=== PATIENT | female | born 1990 | race Caucasian/White ===

== ENCOUNTER → 2018-09-04 12:18 | Outpatient (CLI) | payer BC, SELFPAY ==
--- NOTE | 2018-09-04 12:39 | XR_ITS ---
XR foot RT min 3V, XR foot LT min 3V Ordering Physician: Hazel Dean Patient Age: 28 years: Female HISTORY: ITS.REASON: RT FOOT PAIN Heel pain. Several months. No known injury. TECHNIQUE: Nonweightbearing study: Right foot 3 view Left foot 3 view COMPARISON :None RIGHT FOOT 3 VIEW The right but appears intact. Bones well mineralized. Joint spaces well-maintained. Normal relationships. No erosions. No periosteal reaction or stress fracture evident. The calcaneus appears intact. Heel pad, well-maintained measuring 19 mm. No plantar calcaneal spur LEFT FOOT 3 VIEW The left but appears intact with no significant findings. Bones well mineralized normal relationships. Joint spaces well-maintained. No erosions. No lesions evident. Adequate plantar arch bilaterally. The calcaneus appears intact. Heel pad appears well-maintained measuring 19 mm. Bilateral No evidence calcaneal spur -----IMPRESSION: . Right and left foot appear intact bilaterally. Symmetric & Within normal limits. Calcaneus intact bilaterally. No plantar calcaneal spur.
== END ==
PROVIDERS: PCP Family Medicine; Visit Provider Nurse Practitioner
DX: M79.671 Pain in right foot (principal); M79.672 Pain in left foot
CPT/HCPCS: 73630

== ENCOUNTER → 2019-02-13 10:49 | Outpatient (CLI) | payer BC, SELFPAY ==
--- NOTE | 2019-02-13 10:55 | XR_ITS ---
PROCEDURE: XR FOOT WT BEARING LT 3V CLINICAL INDICATION: pain COMPARISON: No exams were available for comparison FINDINGS: No fracture or dislocation. No lytic or blastic change. There is normal mineralization. The joint spaces are well-preserved. No significant degenerative/arthritic changes. No erosive changes evident. Other findings:Mild pes planus IMPRESSION: Mild pes planus otherwise negative Dictated by: Vikas Cook MD 02/13/2019 11:10 Signed by: <Electronically signed by Vikas Cook MD in [place]> 02/13/2019 11:10
--- NOTE | 2019-02-13 10:55 | XR_ITS ---
PROCEDURE: XR ANKLE WT BEARING LT MIN 3V CLINICAL INDICATION: pain COMPARISON: No exams were available for comparison FINDINGS: No fracture, dislocation, lytic change, or blastic change evident. No significant degenerative change IMPRESSION: Negative left ankle Dictated by: Vikas Cook MD 02/13/2019 11:10 Signed by: <Electronically signed by Vikas Cook MD in [place]> 02/13/2019 11:10
== END ==
PROVIDERS: PCP Family Medicine; Visit Provider Podiatrist
DX: M72.2 Plantar fascial fibromatosis (principal)
CPT/HCPCS: 73610; 73630

== ENCOUNTER → 2019-02-20 09:30 | Outpatient (CLI) | payer BC, SELFPAY ==
--- NOTE | 2019-02-20 09:34 | MR_ITS ---
PROCEDURE: MR FOOT LT WO/W CON CLINICAL INDICATION: pain, plantar fasciitis, evaluate for plantar fascia tear, insertional Achilles tendinitis, Achilles tear Pain when walking. Pain along the medial side of the foot and plantar surface COMPARISON: XR FOOT WT BEARING LT 3V from 02/13/2019 TECHNIQUE: Routine multiplanar multi echo sequences are performed without and with gadolinium enhancement. FINDINGS: There is a mild amount of bone marrow edema within the inferior aspect of the calcaneus just proximal to and at the region of the plantar fascia insertion and also lateral to the plantar fascia. This area also shows some mild enhancement. There is also mild edema of the heel pad superficial to the medial aspect of the calcaneus. There is mild thickening of the plantar fascia medially and posteriorly. No definite disruption however is evident of the plantar fascia. Edema with fluid signal intensity is present deep to the plantar fascia. The Achilles tendon has an unremarkable appearance. There is a small ankle joint effusion posterior to the posterior subtalar joint. There is focal increased T2 signal involving the posterior aspect of the flexor digitorum brevis at the insertion on the calcaneus suggesting at least partial tear of this muscle. There is mild enhancement the plantar fascia with the calcaneus and there is also mild enhancement of the heel pad . No ligament tear is apparent. The tendons about the ankle and foot have an unremarkable appearance IMPRESSION: 1. Plantar fasciitis manifested by edema within the calcaneus, mild thickening of the plantar fascia, edema of the heel pad superficial to the plantar fascia, and edema deep to the plantar fascia at its insertion on the calcaneus a definite fascial tear is not identified. A partial tear however cannot be excluded 2. Moderate amount of increased T2 signal with irregularity involving the posterior aspect of the flexor digitorum brevis raising suspicion of partial tear of that muscle Dictated by: Vikas Cook MD 02/26/2019 12:52 Electronically signed by Vikas Cook MD in [place] 02/26/2019 12:52
== END ==
PROVIDERS: PCP Family Medicine; Visit Provider Podiatrist
DX: M72.2 Plantar fascial fibromatosis (principal)
CPT/HCPCS: 73720; A9576

== ENCOUNTER 2019-04-23 16:30 | Outpatient (RCR) | payer BC, SELFPAY ==
--- NOTE | 2019-04-10 16:14 | HMH.PTOPEV ---
PT Outpatient Evaluation Rehab PT Outpatient Evaluation Start: 04/10/19 15:45 Freq: Status: Active Protocol: Document 04/10/19 15:48 SOFIYA (Rec: 04/10/19 16:14 KATHYMARY ANN [id number]) Electronically Signed By Vega Hernandez PT 04/10/19 15:48 Outpatient Therapy Subjective History Subjective History This is the initial physical therapy evaluation for Bernadette Soto. Pt is a 28 y/o female referred to PT for c/o B foot pain L>R. Pt reports pain in L foot began insidiously in Jul and R foot began in August. Pt reports she has been in a boot, cast and had steroid injxn w/out relief. Pt reports pain is in bottom of feet and medial side of heel on L. Chief Complaint Pain,Stiff,Swelling Symptom Type Ache,Throb,Sharp,Dull,Stabbing ,Burning,Shooting Symptoms Relieved By Rest/Positioning,Ice Symptoms Aggravated By Standing,Physical Activity, Walking Prior Functional Limitations None Current Functional Limitations Housework,Sleeping,Standing, Recreation Activity,Walking, Stairs Symptom Description Constant but Variable Level of pain today (0-10) 6 Pain scale - at its best (0-10) 4 Pain scale - at its worst (0-10) 8 Ankle/Foot Eval Gait Observation General Gait Pattern Observation Antalgic Gait Assistive Device Ambulation Assistive Device None Palpation Tenderness bilateral Ankle/Foot Palpation Findings Tenderness Ankle/Foot Palpation Overall Comment TTP at PF calcaneal insertion B ROM left Ankle/Foot Dorsiflexion w/Knee Extended 0 Active Range Motion (degrees) Ankle/Foot Plantar Flexion Active Range 45 of Motion (degrees) Ankle/Foot Eversion Active Range of 15 Motion (degrees) Ankle/Foot Inversion Active Range of 40 Motion (degrees) Ankle/Foot ROM Limitations Soft Tissue Tightness,Pain right Ankle/Foot Dorsiflexion w/Knee Extended 10 Active Range Motion (degrees) Ankle/Foot Plantar Flexion Active Range 55 of Motion (degrees) Ankle/Foot Eversion Active Range of 25 Motion (degrees) Ankle/Foot Inversion Active Range of 40 Motion (degrees) MMT bilateral Ankle Dorsiflexion Strength Grade 4 Good Ankle Plantarflexion Strength Grade 5 Normal Foot Eversion Strength Grade 4- Good- F
== END 2019-04-23 16:35 | disposition home or self-care (01) ==
LOC: PT 16:30
PROVIDERS: Visit Provider Podiatrist
DX: M79.672 Pain in left foot (principal); M72.2 Plantar fascial fibromatosis; S66.819A Strain of other specified muscles, fascia and tendons at wrist and hand level, unspecified hand, initial encounter; M76.62 Achilles tendinitis, left leg; M76.61 Achilles tendinitis, right leg
CPT/HCPCS: 97010; 97110; 97140; 97163

== ENCOUNTER → 2020-02-15 10:22 | Outpatient (CLI) | payer BC, SELFPAY ==
[2020-02-16 09:27] LABS: Prolactin 11.5 ng/mL (4.8-23.3)
[2020-02-16 09:45] LABS: Estradiol 43.7 pg/mL (.); LH 6.5 mIU/mL (.)
== END ==
PROVIDERS: Visit Provider Nurse Practitioner Obstetrics & Gynecology
DX: Z01.419 Encounter for gynecological examination (general) (routine) without abnormal findings (principal)
CPT/HCPCS: 36415; 82670; 83001; 83002; 84146

== ENCOUNTER 2020-05-15 13:47 | Emergency (ER) | payer BC, SELFPAY ==
[2020-05-15 13:49] VITALS: BP 145/84; PULSE 80; RESP 16; TEMP 36.8; O2SAT 98; BMI 35.4
--- NOTE | 2020-05-15 14:06 | HMH.EDGENADL ---
ED Disposition Clinical Impression: Burn, foot, second degree Qualifiers: Encounter type: initial encounter Laterality: left Qualified Code(s): T25.222A - Burn of second degree of left foot, initial encounter Disposition: Home, Self-Care Condition on Discharge: Good Instructions: DI for Haney Additional Instructions: Additional instructions for HANEY: Clean your burn with a warm, wet, soapy washcloth each day by stroking over the burn one time. This will remove any loose blisters. Any blisters that remain will come off on subsequent days. Apply antibiotic ointment and bandage. Continue this treatment daily until the burn heals, usually 1-2 weeks. Return if high fever greater than 101 degrees, pus drainage, red streaks. Tylenol or ibuprofen for pain. Referrals: John Moreno MD [Primary Care Provider] - - Critical Care Critical Care Time: No Attestation: On 05/15/20, the high probability of a clinically significant, sudden or life threatening deterioration of the following system(s) required my full and direct attention, intervention and personal management. The time I documented below is in addition to time spent performing reported procedures but includes the following listed in this critical care notation. Medical Decision Making - Bart Inquiry Pt receiving controlled substance: No Vital Signs: 05/15/20 13:49 Temperature 98.3 F Temperature Source Oral Pulse Rate [Right Radial] 80 Respiratory Rate 16 Blood Pressure [Right Arm] 145/84 H Blood Pressure Mean [Right Arm] 104 Blood Pressure Source [Right Arm] Automatic Cuff Blood Pressure Position [Right Arm] Sitting 02 Sat by Pulse Oximetry 98 Oxygen Delivery Method Room Air Orders (Tests/Meds): ED MEDICATIONS Generic Name Dose Route Start Last Admin Trade Name Freq PRN Reason Stop Dose Admin Neomycin/Polymyxin/Bacitracin 1 each 05/15/20 14:14 Neosporin Ointment 0.9gm Udp TP 05/15/20 14:15 ONCE ONE Discontinued Medications Generic Name Dose Route Start Last Admin Trade Name Freq PRN Reason Stop Dose Admin Tetanus/Reduced Diphtheria/Acell Pertussis 0.5 ml 05/15/20 14:13 Tet/Diphth/Pert-Adult 0.5ml Syringe IM 05/15/20 14:14 .ONCE ONE General Adult HPI - General Chief complaint: Skin/Abscess/Foreign Body Stated complaint: lt foot burn ao 05/15/20 Time Seen by Provider: 05/15/20 14:06 Mode of Arrival: Ambulatory Limitations: No Limitations Description of Symptoms (Recalled from ER Triage Doc. by RN): Red blistered area to top of L foot. 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 - History of Present Illness HPI narrative: Burned with hot grease on top of left foot 20 minutes prior to arrival. Last tetanus immunization is unknown. She had a sock on and when she took the sock off after the injury it peeled off some of a blister. No haney on the plantar aspect of the foot. - Related Data Previous Rx's Medication Instructions Recorded clomiphene citrate 50 mg tablet 50 mg PO DAILY 5 Days #5 tab 02/15/20 Allergies Allergy/AdvReac Type Severity Reaction Status Date / Time amoxicillin [From AUGMENTIN] Allergy Unknown Verified 02/15/20 09:32 clavulanic acid Allergy Unknown Verified 02/15/20 09:32 [From AUGMENTIN] [facility] History - Hepatitis A Screen Drug use history?: No High risk sexual behaviors?: No History of sexually transmitted infection?: No Currently employed?: No Childcare worker?: No Do you have indoor plumbing?: Yes Do you have electricity?: Yes Attestation statement:: This patient has been screened for Hepatitis A risk factors. I have reviewed the patient's past medical history: Yes Medical History: Reports:: Asthma Denies:: Diabetes Mellitus Type 1, Diabetes Mellitus Type 2 Other Surgeries: Yes: No Previous Surgery Amputation: No Fractures: No Comment: surgery for right arm nerve damage - lifting injury at work. had an aborti
[2020-05-15 14:39] VITALS: BP 133/83; PULSE 81; RESP 18; TEMP 36.8; O2SAT 98
== END 2020-05-15 14:40 | disposition home or self-care (01) ==
PROVIDERS: Emergency Provider Emergency Medicine; PCP Family Medicine
DX: T25.222A Burn of second degree of left foot, initial encounter (principal); X12.XXXA Contact with other hot fluids, initial encounter; Y92.010 Kitchen of single-family (private) house as the place of occurrence of the external cause; Z23 Encounter for immunization; Z88.1 Allergy status to other antibiotic agents
CPT/HCPCS: 90471; 90715; 99281

== ENCOUNTER → 2020-10-28 19:08 | Outpatient (CLI) | payer BC, SELFPAY | PROVIDERS: Visit Provider Nurse Practitioner Family | DX: Z20.822 Contact with and (suspected) exposure to COVID-19 (principal) | CPT/HCPCS: U0003 ==

== ENCOUNTER → 2021-04-17 13:03 | Outpatient (CLI) | payer BC, SELFPAY ==
--- NOTE | 2021-04-17 13:07 | CA_ITS ---
APPROVED REPORT Left Lower Extremity Venous Study for DVT. Dehydrator Tender: Terrie Fink RVT Indications Lower Extremity Pain: Left Lower Extremity Edema: Left PAIN/SWELLING LLE X SEVERAL DAYS,NKI Vein Imaging CFV (L): compressive, spontaneous, phasic, augmentation FEM (L): compressive, spontaneous, phasic, augmentation POP (L): compressive, spontaneous, phasic, augmentation PTV (L): Compressible GSV (L): Compressible Peroneals (L):Compressible GAS (L): Compressible Findings Study suggests no evidence of DVT or SVT of the left lower extremity. Conclusion Study suggests no evidence of DVT or SVT of the left lower extremity. Electronically signed by : Suri Jackson MD 04/17/2021 16:37:31
== END ==
LOC: RT 13:04
PROVIDERS: PCP Family Medicine; Visit Provider Nurse Practitioner Family
DX: M79.605 Pain in left leg (principal); M79.89 Other specified soft tissue disorders
CPT/HCPCS: 93971

== ENCOUNTER 2021-05-23 11:22 | Emergency (ER) | payer OTHER, BC, SELFPAY ==
[2021-05-23 11:33] VITALS: BP 128/89; PULSE 96; RESP 18; TEMP 36.8; O2SAT 97; BMI 35.6
--- NOTE | 2021-05-23 11:35 | XR_ITS ---
PROCEDURE INFORMATION: Exam: XR Left Foot Exam date and time: 05/23/2021 11:35 AM Age: 30 years old Clinical indication: Injury or trauma; Fall; Sprain or strain; Ankle and foot; Patient HX: Rolled left ankle; Additional info: Pain TECHNIQUE: Imaging protocol: XR Left foot. Views: 3 or more views. COMPARISON: MR FOOT LT WO/W CON 02/20/2019 9:50 AM FINDINGS: Bones/joints: No acute fracture or malalignment. Joint spaces are maintained. Soft tissues: Normal. IMPRESSION: No acute fracture or malalignment.
--- NOTE | 2021-05-23 11:35 | XR_ITS ---
PROCEDURE INFORMATION: Exam: XR Left Ankle Exam date and time: 05/23/2021 11:35 AM Age: 30 years old Clinical indication: Injury or trauma; Fall; Sprain or strain; Ankle and foot; Patient HX: Rolled left ankle; Additional info: Pain TECHNIQUE: Imaging protocol: XR Left ankle. Views: 3 or more views. COMPARISON: CR XR ANKLE WT BEARING LT MIN 3V 02/13/2019 10:56 AM FINDINGS: Bones/joints: No acute fracture or malalignment. Joint spaces are maintained. Soft tissues: Normal. IMPRESSION: No acute fracture or malalignment.
--- NOTE | 2021-05-23 12:27 | HMH.EDGENADL ---
ED Disposition Clinical Impression: Left ankle sprain Qualifiers: Encounter type: initial encounter Involved ligament of ankle: unspecified ligament Qualified Code(s): S93.402A - Sprain of unspecified ligament of left ankle, initial encounter Disposition: Home, Self-Care Condition on Discharge: Good Instructions: DI for Ankle Sprain Prescriptions: Ibuprofen [Ibuprofen 800mg Tablet] 800 mg PO TIDP PRN #20 tab PRN Reason: Moderate Pain Transmission Status: Pending to [id number] Referrals: Jai Hastings MD [Primary Care Provider] - - Critical Care Critical Care Time: No Attestation: On 05/23/21, the high probability of a clinically significant, sudden or life threatening deterioration of the following system(s) required my full and direct attention, intervention and personal management. The time I documented below is in addition to time spent performing reported procedures but includes the following listed in this critical care notation. Medical Decision Making - Medical Records Medical records reviewed: Yes: I reviewed the patient's medical records. - Bart Inquiry Pt receiving controlled substance: No Vital Signs: 05/23/21 11:33 Temperature 98.2 F Temperature Source Oral Pulse Rate [Left Radial] 96 H Respiratory Rate 18 Blood Pressure [Right Arm] 128/89 Blood Pressure Mean [Right Arm] 102 02 Sat by Pulse Oximetry 97 Oxygen Delivery Method Room Air Orders (Tests/Meds): ED MEDICATIONS Discontinued Medications Generic Name Dose Route Start Last Admin Trade Name Freq PRN Reason Stop Dose Admin Hydrocodone Bitart/Acetaminophen 1 tab 05/23/21 11:35 05/23/21 11:39 Hydrocodone/Apap 5/325 Mg Tablet PO 05/23/21 11:36 1 tab ONCE ONE Administration ORDERS Category Date Time Status UDS [Drug Screen,Urine] Stat Lab 05/23/21 11:53 Ordered - Radiology Data #1 Image(s): Ankle, Foot/Toes Image Reviewed: Yes I reviewed the patient's radiology results, Yes I reviewed the patient's radiology image, Yes I have reviewed radiologist's interpretation Preliminary Findings: Normal/NAD, No Fracture Seen - Reevaluation(s) Time: 12:29 Reevaluation #1: On reevaluation, the patient is feeling better. There is no evidence of fracture on imaging studies. Patient will follow up with PCP in 48 hours. Given strict return precautions. Verbalized understanding. Medical Decision Narrative: 30-year-old female presenting with left ankle and left foot pain. Patient had accidental fall. Concern for possible fracture. Imaging obtained. General Adult HPI - General Chief complaint: PAIN Stated complaint: WC 05/23 fall, lt foot pain Time Seen by Provider: 05/23/21 11:35 Mode of Arrival: Wheelchair Limitations: No Limitations Description of Symptoms (Recalled from ER Triage Doc. by RN): pt to ed c/o left ankle pain. pt states she stepped off a step and rolled her ankle. pt states this is a workmans comp case. - History of Present Illness HPI narrative: Is a 30-year-old female presented to the emergency department with some left foot and ankle pain. The patient states that she stepped off of some steps and accidentally rolled her ankle. She did not fall down. Patient is complaining of some left foot and left lateral ankle pain. She is having difficulties bearing weight secondary to the pain. Patient did not sustain any other trauma. Denies any headache or change in vision. No focal weakness. No chest pain shortness breath abdominal pain or vomiting. - Related Data Previous Rx's Medication Instructions Recorded Ibuprofen [Ibuprofen 800mg 800 mg PO TIDP PRN #20 tab 05/23/21 Tablet] Allergies Allergy/AdvReac Type Severity Reaction Status Date / Time amoxicillin [From AUGMENTIN] Allergy Unknown Verified 10/28/20 17:14 clavulanic acid Allergy Unknown Verified 10/28/20 17:14 [From AUGMENTIN] [facility] History - Hepatitis A Screen Drug use h
[2021-05-23 13:22] VITALS: BP 131/80; PULSE 91; RESP 18; TEMP 36.8; O2SAT 98
== END 2021-05-23 12:45 | disposition home or self-care (01) ==
PROVIDERS: Emergency Provider Emergency Medicine; PCP Family Medicine
DX: S93.402A Sprain of unspecified ligament of left ankle, initial encounter (principal); X50.1XXA Overexertion from prolonged static or awkward postures, initial encounter; Y92.69 Other specified industrial and construction area as the place of occurrence of the external cause; Y99.0 Civilian activity done for income or pay
CPT/HCPCS: 73610; 73630; 99282

== ENCOUNTER → 2021-06-17 07:17 | Outpatient (CLI) | payer OTHER, SELFPAY ==
--- NOTE | 2021-06-17 07:19 | MR_ITS ---
PROCEDURE INFORMATION: Exam: MR Left Lower Extremity Joint Without Contrast; Ankle Exam date and time: 06/17/2021 7:19 AM Age: 30 years old Clinical indication: Left; Patient HX: PT fell down steps at work on 05-23-21 and rolled ankle. Lateral ankle pain and swelling. ; Additional info: Sprain of left ankle TECHNIQUE: Imaging protocol: MR of the Left lower extremity without contrast. Exam focused on the ankle. COMPARISON: CR XR ANKLE LT MIN 3V 05/23/2021 11:34 AM FINDINGS: Bones and cartilage: There is no acute fracture or dislocation. No aggressive bone lesions are present. There are small dorsal and plantar calcaneal enthesophytes. Joint spaces: A moderate amount of fluid decompresses posteriorly from the subtalar joint. LIGAMENTS: Distal tibiofibular syndesmosis: Unremarkable. No tear. Anterior talofibular ligament: Minimal increased T2 signal suggests sprain of the anterior talofibular ligament. Posterior talofibular ligament: Unremarkable. No tear. Calcaneofibular ligament: Unremarkable. No tear. Deltoid ligament complex: The superficial and deep portions of the deltoid ligament are intact, with a normal striated appearance of the deep deltoid ligament. TENDONS: Flexor tendons of foot: Unremarkable as visualized. Tibialis posterior tendon: Mild tenosynovitis involves the tibialis posterior tendon. Peroneal tendons: Mild tenosynovitis involves the peroneal tendon sheath. Extensor tendons of foot: Unremarkable as visualized. Tibialis anterior tendon: Unremarkable. Achilles tendon: There is no tear or significant tendinosis involving the Achilles tendon. Tarsal canal (Sinus tarsi): The sinus tarsi has normal fat signal. Tarsal tunnel: Unremarkable. Muscles: Unremarkable. Soft tissues: There is a moderate amount of edema in the subcutaneous fat. A trace amount of fluid is present in the retrocalcaneal bursa. Plantar fascia: The proximal plantar fascia is mildly thickened and has mildly increased T2 signal consistent with mild plantar fasciitis (fasciopathy). IMPRESSION: 1. Low-grade sprain of the anterior talofibular ligament. 2. Mild tenosynovitis of the tibialis posterior and peroneal tendons. 3. Mild plantar fasciitis (fasciopathy). 4. No fracture.
== END ==
PROVIDERS: PCP Nurse Practitioner Family; Visit Provider Nurse Practitioner Family
DX: S93.402D Sprain of unspecified ligament of left ankle, subsequent encounter (principal); M25.572 Pain in left ankle and joints of left foot; M25.472 Effusion, left ankle
CPT/HCPCS: 73721

== ENCOUNTER 2021-07-17 09:39 | Emergency (ER) | payer BC, SELFPAY ==
[2021-07-17 09:48] VITALS: BP 140/87; PULSE 103; RESP 16; TEMP 36.9; O2SAT 97; BMI 35.6
--- NOTE | 2021-07-17 09:55 | XR_ITS ---
FINAL REPORT TECHNIQUE: Chest PA & Lateral CLINICAL HISTORY: cough, congestion FINDINGS: 2 views of the chest were performed. The heart size is normal. The mediastinum is within normal limits. There is no acute cardiopulmonary process. There are no pleural effusions. There is no pneumothorax. The bony thorax appears intact. IMPRESSION: No acute cardiopulmonary process. Reviewed, Interpreted and Dictated by Heri Romero MD Transcribed by Jose Ramon Prajapati Authenticated by Heri Romero MD on 07/17/2021 11:14:06 AM [facility]
--- NOTE | 2021-07-17 10:26 | HMH.EDUTC ---
[facility] [place] Disposition Clinical Impression: COVID-19, Bronchitis Disposition: Home, Self-Care Condition on Discharge: Good Instructions: DI for Acute Bronchitis, DI for Pleurisy, DI for COVID-19 (Suspected or Confirmed ), Preventing the Spread of Coronavirus Discharge Instructions Additional Instructions: Drink plenty of fluids. Take tylenol or ibuprofen for pain or fever. Take the medications as directed. Follow up with your regular doctor. GO TO THE ER FOR ANY WORSENING SYMPTOMS Prescriptions: Brompheniramine/Pseudoephed/Dm [Bromfed Dm Cough Syrup] 5 ml PO Q6HP PRN #240 ml PRN Reason: Cough Transmission Status: [facility] by [id number] methylPREDNISolone [Medrol] 4 mg PO DIRECTED 6 Days #21 packet Transmission Status: Re[facility] by [facility] guaiFENesin [Mucinex 600mg tablet] 1 - 2 tab PO BIDP PRN #30 tab PRN Reason: Congestion Transmission Status: Re[facility] by [facility] Azithromycin [Z-Felipe 250mg Tab*] 250 mg PO UD DOSE PK #6 tab Transmission Status: Received by [facility] Referrals: Jai Hastings MD [Primary Care Provider] - Forms: Work/School Release Time of Disposition: 10:33 Medical Decision Making - Medical Records Medical records reviewed: No: I reviewed the patient's medical records. - Bart Inquiry Pt receiving controlled substance: No Vital Signs: 07/17/21 09:48 07/17/21 10:55 Temperature 98.5 F 98.5 F Temperature Source Oral Pulse Rate 103 H Pulse Rate [Left] 103 H Respiratory Rate 16 16 Blood Pressure 140/87 Blood Pressure [Right Arm] 140/87 Blood Pressure Mean [Right Arm] 104 02 Sat by Pulse Oximetry 97 - Lab Data Lab results reviewed: Yes: I reviewed the patient's lab results. - Radiology Data #1 Image(s): Chest Image Reviewed: Yes I reviewed the patient's radiology image, Yes I have reviewed radiologist's interpretation Preliminary Findings: No Infiltrates Seen [facility] [place] HPI - General Stated complaint: sore throat,cough,headache Time Seen by Provider: 07/17/21 09:50 Mode of Arrival: Ambulatory Source of Information: Patient Limitations: No Limitations Description of Symptoms (Recalled from Triage Doc. by RN): pt came out of [facility] on 07/14. pt states she is still having symptoms. pt c/o a sore throat, LI, nasal drainage, upper back pain and nausea. HEENT Symptoms (Recalled from RN notes): Yes (sore throat, LI and nasal drainage) Resp Symptoms (Recalled from RN notes): No Skin Symptoms (Recalled from RN notes): No MS Symptoms (Recalled from RN notes): Yes (upper back pain) Functional Status (Recalled from RN notes): wnl - History of Present Illness Provider Complaint: She has had covid-19. Her quarantine period ended on 07/14. She states that she never really got that sick while she was on her quarantine. She mostly had body aches, fatigue, and a head ache during that time. But, over the past 2 days she has been having worsening chest congestion, shortness of breath on exertion, pleuritic type chest and back pain, and a productive cough with yellowish sputum. She states she feels worse instead of better. - Related Data Previous Rx's Medication Instructions Recorded Ibuprofen [Ibuprofen 800mg 800 mg PO TIDP PRN #20 tab 05/23/21 Tablet] Azithromycin [Z-Felipe 250mg Tab*] 250 mg PO UD DOSE PK #6 tab 07/17/21 Brompheniramine/Pseudoephed/Dm 5 ml PO Q6HP PRN #240 ml 07/17/21 [Bromfed Dm Cough Syrup] guaiFENesin [Mucinex 600mg tablet] 1 - 2 tab PO BIDP PRN #30 tab 07/17/21 methylPREDNISolone [Medrol] 4 mg PO DIRECTED 6 Days #21 07/17/21 packet Allergies Allergy/AdvReac Type Severity Reaction Status Date / Time amoxicillin [From AUGMENTIN] Allergy Unknown Verified 10/28/20 17:14 clavulanic acid Allergy Unknown Verified 10/28/20 17:14 [From AUGMENTIN] - Worker's Comp Is this a Worker's Comp case?: No H History - Hepatitis A Screen Drug use history?: No High risk
[2021-07-17 10:55] VITALS: BP 140/87; PULSE 103; RESP 16; TEMP 36.9
== END 2021-07-17 10:56 | disposition home or self-care (01) ==
PROVIDERS: Emergency Provider Nurse Practitioner Family; PCP Family Medicine
DX: U07.1 COVID-19 (principal); J20.9 Acute bronchitis, unspecified; J45.909 Unspecified asthma, uncomplicated
CPT/HCPCS: 71046; 99202; G0463

== ENCOUNTER → 2021-08-27 09:54 | Outpatient (CLI) | payer BC, SELFPAY ==
[2021-08-27 11:26] LABS: HCG,Quantitative 51 mIU/ml (0-5.42)
== END ==
PROVIDERS: Visit Provider Nurse Practitioner Obstetrics & Gynecology
DX: N92.6 Irregular menstruation, unspecified (principal)
CPT/HCPCS: 36415; 84702

== ENCOUNTER → 2021-08-29 08:24 | Outpatient (CLI) | payer BC, SELFPAY ==
[2021-08-29 09:44] LABS: HCG,Quantitative 142 mIU/ml (0-5.42)
== END ==
LOC: LAB 08:25
PROVIDERS: Visit Provider Nurse Practitioner Obstetrics & Gynecology
DX: Z32.00 Encounter for pregnancy test, result unknown (principal)
CPT/HCPCS: 84702

== ENCOUNTER → 2021-09-01 11:17 | Outpatient (CLI) | payer BC, SELFPAY ==
[2021-09-01 14:36] LABS: HCG,Quantitative 406 mIU/ml (0-5.42)
== END ==
PROVIDERS: Visit Provider Nurse Practitioner Obstetrics & Gynecology
DX: Z34.90 Encounter for supervision of normal pregnancy, unspecified, unspecified trimester (principal)
CPT/HCPCS: 36415; 84702

== ENCOUNTER 2021-09-13 18:41 | Emergency (ER) | payer BC, SELFPAY ==
[2021-09-13 18:43] VITALS: BP 134/79; PULSE 85; RESP 18; TEMP 36.9; O2SAT 100; BMI 34.8
[2021-09-13 19:30] VITALS: BP 134/79; PULSE 86; O2SAT 100
[2021-09-13 19:53] LABS: Microscopic, Urine URINE MICROSCOPIC (MICROSCOPIC)
[2021-09-13 19:56] LABS: Appearance,Urine CLEAR (Clear); Bilirubin,Urine Negative (Negative); Blood, Urine Negative (Negative); Color,Urine YELLOW (Yellow); Glucose,Urine (UA) Negative (Negative); Ketones,Urine Negative (Negative); Leukocyte Esterase,Urine Negative (Negative); Nitrate,Urine Negative (Negative); PH,Urine 5.5 (5.0-8.5); Protein,Urine Negative (Negative); Specific Gravity, Urine >= 1.030 (1.005-1.030); Urobilinogen,Urine 0.2 EU/dl (0.2)
[2021-09-13 20:00] VITALS: BP 117/78; PULSE 80; O2SAT 98
--- NOTE | 2021-09-13 20:05 | PC.NURSE ---
ER at bedside
--- NOTE | 2021-09-13 20:07 | HMH.EDURI ---
ED Disposition Clinical Impression: Qualifiers: Weeks of gestation: less than 8 weeks Qualified Code(s): Z3A.01 - Less than 8 weeks gestation of Upper respiratory infection Qualifiers: URI type: unspecified URI Qualified Code(s): J06.9 - Acute upper respiratory infection, unspecified Disposition: Home, Self-Care Condition on Discharge: Good Instructions: DI for -- Discomforts and Remedies Additional Instructions: call pcp and ob for follow up Referrals: Denisa Schmitz APRN [Primary Care Provider] - Alverto Mast MD [Staff Physician] - - Critical Care Critical Care Time: No Attestation: On 09/13/21, the high probability of a clinically significant, sudden or life threatening deterioration of the following system(s) required my full and direct attention, intervention and personal management. The time I documented below is in addition to time spent performing reported procedures but includes the following listed in this critical care notation. Medical Decision Making - Medical Records Medical records reviewed: Yes: I reviewed the patient's medical records. - Bart Inquiry Pt receiving controlled substance: No Vital Signs: 09/13/21 18:43 09/13/21 19:30 09/13/21 20:00 Temperature 98.4 F Temperature Source Oral Pulse Rate 86 80 Pulse Rate [Left Radial] 85 Respiratory Rate 18 Blood Pressure 134/79 117/78 Blood Pressure [Right Arm] 134/79 Blood Pressure Mean [Right Arm] 97 02 Sat by Pulse Oximetry 100 100 98 Oxygen Delivery Method Room Air Room Air Room Air 09/13/21 20:30 Temperature Temperature Source Pulse Rate 86 Pulse Rate [Left Radial] Respiratory Rate Blood Pressure 121/72 Blood Pressure [Right Arm] Blood Pressure Mean [Right Arm] 02 Sat by Pulse Oximetry 100 Oxygen Delivery Method Room Air - Lab Data Lab results reviewed: Yes: I reviewed the patient's lab results. Lab Results 09/13/21 19:18: Urine Color Yellow, Urine Appearance Clear, Urine pH 5.5, Ur Specific Emerson >= 1.030, Urine Protein Negative, Urine Glucose (UA) Negative, Urine Ketones Negative, Urine Blood Negative, Urine Nitrate Negative, Urine Bilirubin Negative, Urine Urobilinogen 0.2, Ur Leukocyte Esterase Negative, Urine WBC 3-5, Ur Squamous Epith Cells 10-20, Amorphous Sediment Trace, Urine Mucus 1+ 09/13/21 19:51: SARS-CoV-2 (PCR) Not detected, Influenza A Untype (PCR) Not detected, Influenza Type B (PCR) Not detected 09/13/21 19:54: HCG, Quant [id number] H 09/13/21 19:54: WBC 7.7, RBC 4.15 L, Hgb 13.2, Hct 39.0, MCV 94.0, MCH 31.7 H, MCHC 33.8, RDW 13.6, Plt Count 183, MPV 9.6, Neut % (Auto) 69.4, Lymph % (Auto) 22.8, Sterling % (Auto) 3.7, Eos % (Auto) 1.4, Baso % (Auto) 2.7 H, Neut # (Auto) 5.3, Lymph # (Auto) 1.8, Sterling # (Auto) 0.3, Eos # (Auto) 0.1, Baso # (Auto) 0.2 09/13/21 19:54: Sodium 136, Potassium 4.3, Chloride 104, Carbon Dioxide 25, Anion Gap 11.3, BUN 8, Creatinine 0.70, Estimated Creat Clear 204, Estimated GFR 98, Est GFR ( Amer) 119, Glucose 91, Calcium 9.0, Total Bilirubin 0.8, AST 45 H, ALT 28, Alkaline Phosphatase 24 L, Total Protein 7.0, Albumin 4.5, Globulin 2.5, Albumin/Globulin Ratio 1.8 Result diagrams: 09/13/21 19:54 09/13/21 19:54 Orders (Tests/Meds): ED MEDICATIONS Generic Name Dose Route Start Last Admin Trade Name Cliffq PRN Reason Stop Dose Admin Sodium Chloride 1,000 mls @ 999 mls/hr 09/13/21 20:00 09/13/21 20:09 Sod Chlor 0.9% 1000ml Bag IV 09/13/21 21:00 999 mls/hr .[id number] MICHEAL Administration ORDERS Category Date Time Status US OB transvaginal Stat Ultrasound 09/13/21 20:52 Taken - US Data US Images: Pelvis ED US Reviewed: Yes: I discussed the US results w/the radiologist Findings Narrative: iup with fht Medical Decision Narrative: has early iup and prob viral syndrome - asked to call pcp an ob URI/Sore Throat HPI - General Chief Complaint: Upper Respiratory Infection Stated Complaint: 6wk preg
[2021-09-13 20:20] LABS: Amorphous Sediment,Urine Trace /lpf; Mucus,Urine 1+ /lpf
[2021-09-13 20:30] VITALS: BP 121/72; PULSE 86; O2SAT 100
[2021-09-13 20:32] LABS: Coronavirus 19, PCR Not Detected (NotDetected); Influenza A, PCR Not Detected (NotDetected); Influenza B, PCR Not Detected (NotDetected)
[2021-09-13 20:32] LABS: Basophils # 0.2 K/mm3 (0-0.2); Basophils % 2.7 % (0.1-2.0); Eosinophils # 0.1 K/mm3 (0.0-0.4); Eosinophils % 1.4 % (0.1-12.0); Hemoglobin 13.2 g/dL (12.2-16.2); Lymphocytes # 1.8 K/mm3 (0.7-4.5); Lymphocytes % 22.8 % (10-50); Mean Corpuscular HGB Conc 33.8 g/dL (31.8-35.4); Mean Corpuscular Hemoglobin 31.7 pg (27.0-31.2); Mean Platelet Volume 9.6 fl (7.4-10.4); Monocytes # 0.3 K/mm3 (0.1-1.0); Monocytes % 3.7 % (1.7-9.3); Neutrophils # 5.3 K/mm3 (1.8-7.8); Neutrophils % 69.4 % (37.0-80.0); Platelet Count 183 K/mm3 (142-424); Red Blood Count 4.15 M/mm3 (4.20-5.40); Red Cell Distribution Width 13.6 % (11.5-17.5); White Blood Count 7.7 K/mm3 (4.8-10.8)
[2021-09-13 20:35] LABS: Alanine Aminotransferase 28 U/L (12-78); Albumin Level 4.5 g/dl (3.5-5.0); Albumin/Globulin Ratio 1.8 (1.1-1.8); Alkaline Phosphatase 24 U/L (38-126); Anion Gap 11.3 mEq/L (5-15); Aspartate Amino Transferase 45 U/L (14-36); Bilirubin,Total 0.8 mg/dl (0.2-1.3); Blood Urea Nitrogen 8 mg/dl (7-17); Carbon Dioxide 25 mmol/L (22.0-30.0); Chloride 104 mmol/L (98-107); Creatinine Clearance Estimated 204 mL/min (50-200); Estimated Glomerular Filt Rate 98 ml/min (>60); GFR (African American) 119 ML/MIN (>60); Globulin 2.5 g/dL (1.3-3.2); Glucose 91 mg/dl (74-100); Potassium 4.3 mmoL/L (3.5-5.1); Sodium 136 mmol/L (136-145)
--- NOTE | 2021-09-13 20:52 | US_ITS ---
PROCEDURE INFORMATION: Exam: US , Transvaginal Exam date and time: 09/13/2021 9:20 PM Age: 31 years old Clinical indication: Pain; Other: Cramping in pelvis; Gestational age or lmp: Lmp aug 01 2021; ; Additional info: Pelvic pain early no bleeding TECHNIQUE: Imaging protocol: Real-time transvaginal obstetrical ultrasound of the maternal pelvis with image documentation. Transvaginal imaging was used for better evaluation of the fetus, adnexa, and/or cervix. COMPARISON: CA VENOUS DOPPLER LE LT 04/17/2021 1:10 PM FINDINGS: Gestation: Intrauterine gestational sac yolk sac. pole is visualized. Heart rate of 149 bpm. BIOMETRY: Estimated due date (AUA): AD 05/05/2022. Gestational age (AUA): Gestational age of 6 weeks and 4 days. MATERNAL: Uterus: Nabothian cysts within the region of the cervix. Right ovary/adnexa: Right ovary is unremarkable. Left ovary/adnexa: Left ovarian cyst or follicle measuring 1.1 x 0.9 cm. No evidence for torsion. IMPRESSION: Single intrauterine gestation described above.
[2021-09-13 21:15] LABS: HCG,Quantitative 19582 mIU/ml (0-5.42)
--- NOTE | 2021-09-13 21:19 | PC.NURSE ---
Pt gone to RAD
--- NOTE | 2021-09-13 21:50 | PC.NURSE ---
Pt back from RAD
[2021-09-13 23:00] VITALS: BP 115/67; PULSE 77; RESP 18; TEMP 37.2; O2SAT 98
== END 2021-09-13 22:21 | disposition home or self-care (01) ==
PROVIDERS: Emergency Provider Emergency Medicine; PCP Nurse Practitioner Family
DX: J06.9 Acute upper respiratory infection, unspecified (principal); Z3A.01 Less than 8 weeks gestation of pregnancy
CPT/HCPCS: 76817; 80053; 81001; 84702; 85025; 96360; 99284; C9803; U0003; U0005

== ENCOUNTER → 2021-09-30 12:51 | Outpatient (CLI) | payer BC, SELFPAY ==
--- NOTE | 2021-09-30 12:51 | US_ITS ---
FINAL REPORT CLINICAL HISTORY: for dates FINDINGS: Sonographic images of the pelvis were obtained. A single, living intrauterine is noted. A yolk sac is present and measures 0.56 cm. [place] to rump length measures 2.16 cm which corresponds to 8 weeks 6 days gestation. Heartbeat is identified and measures 167 beats per minute. The right ovary is within normal limits. The left ovary is within normal limits. IMPRESSION: Single, living, intrauterine gestation with 8 weeks 4 days gestational age. Reviewed, Interpreted and Dictated by Heri Romero MD Transcribed by Jerilyn Montejo Authenticated by Heri Romero MD on 09/30/2021 02:46:42 PM [facility]
== END ==
PROVIDERS: PCP Nurse Practitioner Family; Visit Provider Nurse Practitioner Obstetrics & Gynecology
DX: Z34.90 Encounter for supervision of normal pregnancy, unspecified, unspecified trimester (principal)
CPT/HCPCS: 76801

== ENCOUNTER → 2021-10-05 12:28 | Outpatient (CLI) | payer BC, SELFPAY ==
[2021-10-05 13:19] LABS: Basophils % 0.6 % (0.1-2.0); Eosinophils # 0.1 K/mm3 (0.0-0.4); Eosinophils % 0.6 % (0.1-12.0); Hematocrit 39.7 % (37.0-47.0); Hemoglobin 13.3 g/dL (12.2-16.2); Lymphocytes # 1.3 K/mm3 (0.7-4.5); Lymphocytes % 17.5 % (10-50); Mean Corpuscular HGB Conc 33.6 g/dL (31.8-35.4); Mean Corpuscular Hemoglobin 31.4 pg (27.0-31.2); Mean Corpuscular Volume 93.6 fl (81-99); Mean Platelet Volume 8.7 fl (7.4-10.4); Monocytes # 0.2 K/mm3 (0.1-1.0); Monocytes % 2.5 % (1.7-9.3); Neutrophils # 5.7 K/mm3 (1.8-7.8); Neutrophils % 78.8 % (37.0-80.0); Platelet Count 194 K/mm3 (142-424); Red Blood Count 4.24 M/mm3 (4.20-5.40); Red Cell Distribution Width 13.6 % (11.5-17.5); White Blood Count 7.2 K/mm3 (4.8-10.8)
[2021-10-06 06:35] LABS: HSV 1 IgG, Type Spec <0.91 index (0.00-0.90); HSV 2 IgG, Type Spec <0.91 index (0.00-0.90); Rubella Antibodies, IgG <0.90 index (Immune >0.99)
[2021-10-06 07:15] LABS: HIV Screen 4th Generation wRfx Non Reactive (Non Reactive); Hepatitis B Surface Antigen Negative (Negative); Hepatitis C Antibody <0.1 s/co ratio (0.0-0.9)
[2021-10-06 13:25] LABS: Rapid Plasma Reagin Ab Titer Non Reactive (NonRea<1:1)
== END ==
PROVIDERS: PCP Nurse Practitioner Family; Visit Provider Nurse Practitioner Obstetrics & Gynecology
DX: Z34.90 Encounter for supervision of normal pregnancy, unspecified, unspecified trimester (principal)
CPT/HCPCS: 36415; 85025; 86592; 86695; 86703; 86762; 86790; 86850; 87340; 87380; G0432

== ENCOUNTER → 2021-10-12 09:47 | Outpatient (CLI) | payer BC, SELFPAY | PROVIDERS: Visit Provider Nurse Practitioner Obstetrics & Gynecology | DX: Z34.90 Encounter for supervision of normal pregnancy, unspecified, unspecified trimester (principal) | CPT/HCPCS: 36415 ==

== ENCOUNTER → 2021-11-09 10:30 | Outpatient (CLI) | payer BC, SELFPAY | PROVIDERS: Visit Provider Nurse Practitioner Obstetrics & Gynecology | DX: Z31.430 Encounter of female for testing for genetic disease carrier status for procreative management (principal); Z36.0 Encounter for antenatal screening for chromosomal anomalies; O28.3 Abnormal ultrasonic finding on antenatal screening of mother | CPT/HCPCS: 36415 ==

== ENCOUNTER 2021-12-01 09:51 | Emergency (ER) | payer BC, SELFPAY ==
[2021-12-01 10:01] VITALS: BP 120/81; PULSE 108; RESP 19; TEMP 36.9; O2SAT 99; BMI 34.9
[2021-12-01 10:20] LABS: Adenovirus,PCR Not Detected (NotDetected); Bordetella Pertussis Not Detected (NotDetected); Chlamydophila Pneumoniae, PCR Not Detected (NotDetected); Coronavirus 229E Not Detected (NotDetected); Coronavirus NL63 Not Detected (NotDetected); Coronavirus OC43 Not Detected (NotDetected); Coronovirus HKU1,PCR Not Detected (NotDetected); Human Metapneumovirus Not Detected (NotDetected); Influenza A, PCR Not Detected (NotDetected); Influenza AH1, 2009 Not Detected (NotDetected); Influenza AH1, PCR Not Detected (NotDetected); Influenza AH3,PCR Not Detected (NotDetected); Influenza B, PCR Not Detected (NotDetected); Mycoplasma Pneumoniae, PCR Not Detected (NotDetected); Parainfluenza 1, PCR Not Detected (NotDetected); Parainfluenza 2, PCR Not Detected (NotDetected); Parainfluenza 3, PCR Not Detected (NotDetected); Parainfluenza 4, PCR Not Detected (NotDetected); Respiratory Syncytial Virus Not Detected (NotDetected); Rhinovirus/Enterovirus Not Detected (NotDetected)
--- NOTE | 2021-12-01 10:20 | HMH.EDUTC ---
[facility] [place] Disposition Clinical Impression: Viral upper respiratory tract infection with cough Disposition: Home, Self-Care Condition on Discharge: Good Instructions: DI for Cough -- Adult, DI for COVID-19 (Suspected or Confirmed ), How to Care for Someone with COVID-19, Preventing the Spread of Coronavirus Discharge Instructions Additional Instructions: *Monitor Temp, Over the counter Tylenol as directed/as needed Tylenol every 4 hours (as long as your family doctor has told you that you can take it) for fever or pain. and straight to ER if unable to lower temp less than 101.0 after medication given Over the counter Robitussin is safe for use during to help with cough *Warm salt water gargles may help to soothe the throat *Throat Lozenges *Warm fluids like tea with honey may help to soothe the throat *Sleep elevated *Humidifier/Vaporizer Over the counter Tylenol products like Tylenol Sinus are safe for use during but always make sure to discuss the medication with the pharmacy to make sure that is safe to use during Make sure to drink plenty of fluids and stay hydrated Continue taking your vitamins and increases your Vitamin intake by sitting in the sun, eating foods high in vitamin C Your throat swab was sent for culture. Those results are typically sent to your primary care. Be sure to follow up in 2-3 days with your family doctor/primary care physician if no improvement so they can review those result and treat if necessary. If you don?t have a primary care doctor, I recommend you get one but in the mean time, you will have to return to a walk in clinic Follow up IMMEDIATELY for new or worsening symptoms or no Noticeable improvement over the next 48-72 hours. 911 for difficulty breathing or swallowing You were tested for today for COVID19 your test result should be back in the next 24-48 hours, your results will be available for viewing on the [facility] My Health Portal Referrals: Denisa Schmitz APRN [Primary Care Provider] - As needed Forms: Work/School Release Time of Disposition: 10:40 Medical Decision Making - Bart Inquiry Pt receiving controlled substance: No Bart was queried for this patient: No Vital Signs: 12/01/21 10:01 Temperature 98.5 F Temperature Source Oral Pulse Rate [Left Radial] 108 H Respiratory Rate 19 Blood Pressure [Right Arm] 120/81 Blood Pressure Mean [Right Arm] 94 02 Sat by Pulse Oximetry 99 - Lab Data Lab results reviewed: Yes: I reviewed the patient's lab results. Lab Results 12/01/21 10:14: Group A Strep Rapid Negative Orders (Tests/Meds): ORDERS Category Date Time Status Full Resp Panel w/COVID ([facility]) Routine Lab 12/01/21 10:14 Received Strep Screen Confirmation Stat Micro 12/01/21 10:14 Received [facility] UTC HPI - General Stated complaint: covid pos 11/30, stiff neck, cough, congestion Time Seen by Provider: 12/01/21 10:10 Description of Symptoms (Recalled from Triage Doc. by RN): patient was diagnosed with covid yesterday. patient comes in with complaints of sore throat, congestion, cough, sore throat. symptoms began tuesday. pt is currently HEENT Symptoms (Recalled from RN notes): Yes Resp Symptoms (Recalled from RN notes): Yes Skin Symptoms (Recalled from RN notes): No MS Symptoms (Recalled from RN notes): No Functional Status (Recalled from RN notes): wnl - History of Present Illness Provider Complaint: Patient states that she had a positive home COVID test yesterday States that she is 17wks OB States that she has been having body aches, chills, sore throat and nasal congestion with cough State that she wasnt feeling better and her OBGYN told her that she may need to have the symptoms treated - Related Data Home Medications Medication Instructions Recorded Confirmed pediatric multivitamin no.140-iron 2 tab PO tab 10/05/21 11/30/21 fumarate 18 mg iron chewable tablet Previous Rx's Medication Instruct
[2021-12-01 10:32] LABS: Strep Scrn Group A (Rapid) Negative (Negative)
[2021-12-01 10:45] VITALS: BP 120/81; PULSE 108; RESP 19; TEMP 36.9
[2021-12-01 11:59] LABS: Coronavirus 19, PCR Detected (NotDetected)
== END 2021-12-01 10:49 | disposition home or self-care (01) ==
PROVIDERS: Emergency Provider Nurse Practitioner; PCP Nurse Practitioner Family
DX: O98.511 Other viral diseases complicating pregnancy, first trimester (principal); U07.1 COVID-19; O26.891 Other specified pregnancy related conditions, first trimester; J02.9 Acute pharyngitis, unspecified; J06.9 Acute upper respiratory infection, unspecified; O99.511 Diseases of the respiratory system complicating pregnancy, first trimester; J45.909 Unspecified asthma, uncomplicated; M43.6 Torticollis; Z79.899 Other long term (current) drug therapy; Z3A.17 17 weeks gestation of pregnancy; Z88.0 Allergy status to penicillin; Z88.1 Allergy status to other antibiotic agents; Z88.3 Allergy status to other anti-infective agents; Z88.8 Allergy status to other drugs, medicaments and biological substances
CPT/HCPCS: 87430; 87581; 87632; 87798; 99213; C9803; G0463; U0003; U0005

== ENCOUNTER → 2021-12-22 12:43 | Outpatient (CLI) | payer BC, SELFPAY ==
--- NOTE | 2021-12-22 12:43 | US_ITS ---
FINAL REPORT CLINICAL HISTORY: US OB COMPLETE, 20 wk+ Anatomy Scan FINDINGS: There is a single live intrauterine gestation. Presentation is breech. The cervix is closed and measures 3.5 cm. Placenta is posterior, grade 1. movement is noted. Heartbeat noted at 144 beats per minute. Three-vessel cord with satisfactory umbilical cord insertion. Four-chamber heart is noted. brain and ventricles are unremarkable. ABDOMEN: Both kidneys are unremarkable. Stomach is unremarkable. SPINE: No anomalies identified. MEASUREMENTS: ULTRASOUND AGE: 21 days 0 days. GESTATION AGE: 20 days 5 days. ESTIMATED WEIGHT: 417 g GROWTH PERCENTILE: 79 % BPD: 4.81 cm corresponding to 20 weeks 4 days. OFD: 6.33 cm corresponding to 21 weeks 1 day. HC: 17.66 cm corresponding to 20 weeks 2 days. AC: 17.32 cm corresponding to 22 weeks 2 days. FL: 3.38 cm corresponding to 20 weeks 5 days. CEREBELLUM: 1.98 cm corresponding with 20 weeks 2 days. HUMERUS: 3.32 cm corresponding 21 weeks 2 days. HC/AC: 1.02 CI: 76% FL/BPD: 70% FL/AC: 20% IMPRESSION: Single living IUP with an ultrasound age of 21 weeks 0 days. Reviewed, Interpreted and Dictated by Franck Jose III, MD Transcribed by Maria Ines Hilliard Authenticated and [facility]
== END ==
PROVIDERS: PCP Nurse Practitioner Family; Visit Provider Nurse Practitioner Obstetrics & Gynecology
DX: Z36.0 Encounter for antenatal screening for chromosomal anomalies (principal)
CPT/HCPCS: 76811

== ENCOUNTER → 2022-01-12 08:48 | Outpatient (CLI) | payer BC, SELFPAY ==
--- NOTE | 2022-01-12 08:51 | US_ITS ---
FINAL REPORT TECHNIQUE: Sonographic images of the right upper quadrant were obtained. CLINICAL HISTORY: RUQ pain FINDINGS: There is fatty infiltration of the liver. There is no focal hepatic lesion or intrahepatic biliary dilatation. There are gallstones in the gallbladder. There is no pericholecystic fluid collection or gallbladder wall thickening. The common duct measures 3 mm which is within normal limits. The pancreatic tail is partially obscured by bowel gas. Otherwise, it has a normal appearance. The right kidney measures 12 cm in oxem-ha-vjjl length. There is mild hydronephrosis, likely hydro . No mass or stone is identified. There is no right upper quadrant ascites. IMPRESSION: Fatty liver. Cholelithiasis. Mild hydronephrosis, likely hydronephrosis of . Reviewed, Interpreted and Dictated by Jami Strickland MD Transcribed by Maria Ines Hilliard Authenticated and [facility]
== END ==
LOC: RAD 08:49
PROVIDERS: PCP Nurse Practitioner Family; Visit Provider Nurse Practitioner Obstetrics & Gynecology
DX: R10.11 Right upper quadrant pain (principal)
CPT/HCPCS: 76705

== ENCOUNTER 2022-01-27 09:19 | Emergency (ER) | payer BC, SELFPAY ==
[2022-01-27 10:15] VITALS: BP 146/83; PULSE 93; RESP 20; TEMP 37; O2SAT 98; BMI 35.3
[2022-01-27 10:33] LABS: UTC Strep Screen (Rapid) Positive (Negative)
[2022-01-27 10:36] VITALS: BP 146/83; PULSE 93; RESP 20; TEMP 37; O2SAT 98
--- NOTE | 2022-01-27 10:51 | HMH.EDUTC ---
[facility] [place] Disposition Clinical Impression: Strep throat Disposition: Home, Self-Care Condition on Discharge: Good Instructions: DI for Strep Throat, Strep Throat Additional Instructions: *Monitor Temp, Over the counter Motrin or Tylenol as directed/as needed Tylenol every 4 hours and Motrin every 6 hours (as long as your family doctor has told you that you can take it) for fever or pain. and straight to ER if unable to lower temp less than 101.0 after medication given *Warm salt water gargles may help to soothe the throat *Throat Lozenges *Warm fluids like tea with honey may help to soothe the throat *Sleep elevated *Humidifier/Vaporizer *If you did not take Penicillin shot or was unable to, start taking antibiotic immediately and make sure that you take it for the FULL length of time although you should start to feel better in 24-48 hours *change toothbrush and toothpaste 24-48 hours after starting to take antibiotics so you do not reinfect yourself Monitor Temp. Tylenol and/or Ibuprofen as needed. ER if fever is no less than 101 despite alternating Tylenol and Ibuprofen * Encourage fluids, water, Gatorade, powerade, pedialyte if infant/toddler/or child *Cold fluids, popsicles and ice cream may feel good on his throat Follow up IMMEDIATELY for new or worsening symptoms or no Noticeable improvement over the next 48-72 hours. 911 for difficulty breathing or swallowing Prescriptions: Azithromycin [Z-Felipe 250mg Tab] 250 mg PO DIRECTED #6 tab Transmission Status: Pending to [id number] Referrals: Denisa Schmitz APRN [Primary Care Provider] - As needed Time of Disposition: 11:00 Medical Decision Making - Bart Inquiry Pt receiving controlled substance: No Bart was queried for this patient: No Vital Signs: 01/27/22 10:15 01/27/22 10:36 Temperature 98.6 F 98.6 F Temperature Source Oral Pulse Rate 93 H Pulse Rate [Right Brachial] 93 H Respiratory Rate 20 20 Blood Pressure 146/83 H Blood Pressure [Right Arm] 146/83 H Blood Pressure Mean [Right Arm] 104 Blood Pressure Source [Right Arm] Automatic Cuff Blood Pressure Position [Right Arm] Sitting 02 Sat by Pulse Oximetry 98 Oxygen Delivery Method Room Air - Lab Data Lab results reviewed: Yes: I reviewed the patient's lab results. Lab Results 01/27/22 10:22: Strep Scn Rapid Clinic Positive A [facility] [place] HPI - General Stated complaint: cough, congestion, sore Time Seen by Provider: 01/27/22 10:51 Mode of Arrival: Ambulatory Source of Information: Patient Limitations: No Limitations Description of Symptoms (Recalled from Triage Doc. by RN): PATIENT C/O SORE THROAT, COUGH AND CONGESTION X 2 DAYS HEENT Symptoms (Recalled from RN notes): Yes Resp Symptoms (Recalled from RN notes): Yes Skin Symptoms (Recalled from RN notes): No MS Symptoms (Recalled from RN notes): No Functional Status (Recalled from RN notes): WNL - History of Present Illness Provider Complaint: Patient states that she has been having sore throat, sinus congestion and cough for several days States that she is 26wks OB States that she has been having sore throat and sinus congestion States that she was worried that she may have strep throat so she came in - Related Data Home Medications Medication Instructions Recorded Confirmed pediatric multivitamin no.140-iron 2 tab PO tab 10/05/21 01/05/22 fumarate 18 mg iron chewable tablet Previous Rx's Medication Instructions Recorded ferrous sulfate 325 mg (65 mg 325 mg PO DAILY #30 tab 11/30/21 iron) tablet Azithromycin [Z-Felipe 250mg Tab] 250 mg PO DIRECTED #6 tab 01/27/22 Allergies Allergy/AdvReac Type Severity Reaction Status Date / Time amoxicillin [From AUGMENTIN] Allergy Unknown Verified 01/05/22 10:40 clavulanic acid Allergy Unknown Verified 01/05/22 10:40 [From AUGMENTIN] - Worker's Comp Is this a Worker's Comp case?: No [facility] History - Hepatitis A Screen Attestation s
== END 2022-01-27 11:10 | disposition home or self-care (01) ==
PROVIDERS: Emergency Provider Nurse Practitioner; PCP Nurse Practitioner Family
DX: J02.0 Streptococcal pharyngitis (principal)
CPT/HCPCS: 87880; 99212; G0463

== ENCOUNTER → 2022-02-05 08:01 | Outpatient (CLI) | payer BC, SELFPAY ==
[2022-02-05 08:29] LABS: Glucose,Fasting 99 mg/dl (74-100)
[2022-02-05 10:03] LABS: Glucose 1 Hour 141 mg/dL (74-100)
== END ==
PROVIDERS: PCP Nurse Practitioner Family; Visit Provider Nurse Practitioner Obstetrics & Gynecology
DX: Z34.90 Encounter for supervision of normal pregnancy, unspecified, unspecified trimester (principal)
CPT/HCPCS: 36415; 82951

== ENCOUNTER 2022-02-06 18:41 | Outpatient (CLI) | payer BC, SELFPAY ==
[2022-02-06 18:44] VITALS: BMI 35.7
[2022-02-06 18:59] LABS: Microscopic, Urine URINE MICROSCOPIC (MICROSCOPIC)
[2022-02-06 19:02] LABS: Appearance,Urine SL CLOUDY (Clear); Blood, Urine Negative (Negative); Color,Urine YELLOW (Yellow); Glucose,Urine (UA) Negative (Negative); Ketones,Urine Negative (Negative); Leukocyte Esterase,Urine 1+ (Negative); Nitrate,Urine Negative (Negative); PH,Urine 6.5 (5.0-8.5); Protein,Urine TRACE (Negative); Specific Gravity, Urine >= 1.030 (1.005-1.030)
--- NOTE | 2022-02-06 19:05 | US_ITS ---
PROCEDURE INFORMATION: Exam: US , Limited Exam date and time: 02/06/2022 7:25 PM Age: 31 years old Clinical indication: Lmp or gestational age (in weeks): Lee may 06 2022; Other: Pre term labor; ; Additional info: Cervical length TECHNIQUE: Imaging protocol: Real-time ultrasound of the maternal uterus with image documentation. Exam focused on the clinical indication. COMPARISON: US OB /MATERNAL DETAIL 12/22/2021 1:01 PM FINDINGS: Gestation: Not evaluated on this exam. MATERNAL: Cervix: Limited exam was performed for evaluation of endocervical canal length only. Technologist has obtained 4 measurements of the length of the cervical canal, measurements range from 2.7 to 3 cm, mean canal length measured is 2.9 cm. There is trace fluid in the endocervical canal. There is no previa seen overlying the internal os on this limited exam. IMPRESSION: Endocervical canal measures approximately 2.9 cm length, containing trace fluid.
[2022-02-06 19:06] LABS: Bilirubin,Urine Negative (Negative)
[2022-02-06 19:07] LABS: Amorphous Sediment,Urine Trace /lpf; Mucus,Urine 4+ /lpf
[2022-02-06 19:14] LABS: Barbiturates Screen,Urine Negative ng/ml (<200)
[2022-02-06 19:15] LABS: Amphetamine/Metha Screen,Urine Negative ng/ml (<1000); Benzodiazepines Screen,Urine Negative ng/ml (<200)
[2022-02-06 19:16] LABS: Cannabinoid Screen,Urine Negative ng/ml (<50)
[2022-02-06 19:17] LABS: Cocaine Screen,Urine Negative ng/ml (<300); Methadone Screen,Urine Negative ng/ml (<300)
[2022-02-06 19:18] LABS: Opiate Screen,Urine Negative ng/ml (<300)
[2022-02-06 19:19] LABS: Phencyclidine Screen,Urine Negative ng/ml (<25)
[2022-02-06 19:50] VITALS: BP 128/79; PULSE 88; RESP 18; TEMP 36.7; O2SAT 96; BMI 35.7
[2022-02-06 19:58] LABS: Fetal Fibronectin (Rapid) Negative (Negative)
== END 2022-02-06 22:15 | disposition home or self-care (01) ==
LOC: OBOUT 18:42 → OB 18:43
PROVIDERS: PCP Nurse Practitioner Family; Visit Provider Obstetrics & Gynecology
DX: O47.02 False labor before 37 completed weeks of gestation, second trimester (principal); Z3A.27 27 weeks gestation of pregnancy
CPT/HCPCS: 59025; 76817; 80305; 81001; 82731; 87086; 96366; G0463

== ENCOUNTER → 2022-02-11 08:01 | Outpatient (CLI) | payer BC, SELFPAY ==
[2022-02-11 10:07] LABS: Glucose 1 Hour 157 mg/dL (74-100); Glucose,Fasting 97 mg/dl (74-100)
[2022-02-11 10:49] LABS: Glucose 2 Hour 142 mg/dL (74-100)
[2022-02-11 11:57] LABS: Glucose 3 Hour 81 mg/dL (74-100)
== END ==
PROVIDERS: PCP Nurse Practitioner Family; Visit Provider Nurse Practitioner Obstetrics & Gynecology
DX: Z34.90 Encounter for supervision of normal pregnancy, unspecified, unspecified trimester (principal); Z3A.26 26 weeks gestation of pregnancy
CPT/HCPCS: 36415; 82951

== ENCOUNTER 2022-02-13 18:38 | Outpatient (CLI) | payer BC, SELFPAY ==
[2022-02-13 18:46] VITALS: BMI 35.6
[2022-02-13 19:11] LABS: Microscopic, Urine URINE MICROSCOPIC (MICROSCOPIC)
[2022-02-13 19:19] LABS: Appearance,Urine CLEAR (Clear); Blood, Urine TRACE-L (Negative); Color,Urine DK YELLOW (Yellow); Glucose,Urine (UA) Negative (Negative); Ketones,Urine Negative (Negative); Leukocyte Esterase,Urine TRACE (Negative); Nitrate,Urine Negative (Negative); Protein,Urine TRACE (Negative); Specific Gravity, Urine >= 1.030 (1.005-1.030)
[2022-02-13 19:20] VITALS: BP 123/78; PULSE 93; RESP 16; TEMP 36.8; O2SAT 98
[2022-02-13 19:22] LABS: Bilirubin,Urine 1+ (Negative)
[2022-02-13 19:24] LABS: Amorphous Sediment,Urine Trace /lpf; Mucus,Urine 1+ /lpf; Squamous Epithelial Cell,Urine 20-50 #/hpf (0-5); WBC,Urine 20-50 #/hpf (0-3)
[2022-02-13 19:28] LABS: Barbiturates Screen,Urine Negative ng/ml (<200)
[2022-02-13 19:29] LABS: Amphetamine/Metha Screen,Urine Negative ng/ml (<1000); Benzodiazepines Screen,Urine Negative ng/ml (<200)
[2022-02-13 19:30] LABS: Cannabinoid Screen,Urine Negative ng/ml (<50)
[2022-02-13 19:31] LABS: Cocaine Screen,Urine Negative ng/ml (<300); Methadone Screen,Urine Negative ng/ml (<300)
[2022-02-13 19:32] LABS: Opiate Screen,Urine Negative ng/ml (<300); Phencyclidine Screen,Urine Negative ng/ml (<25)
[2022-02-13 19:58] LABS: Fetal Membrane Rupture (Rapid) Negative (Negative)
[2022-02-13 21:02] VITALS: BP 123/78; PULSE 93; RESP 16; TEMP 36.8; O2SAT 98; BMI 35.6
--- NOTE | 2022-02-13 21:12 | PC.NURSE ---
REST OVER WEEKEND,RESUME APPOINTMENT WITH DR.CLARKE ARIAS.
== END 2022-02-13 21:30 | disposition home or self-care (01) ==
LOC: OBOUT 18:40 → OB 18:41
PROVIDERS: PCP Nurse Practitioner Obstetrics & Gynecology; Visit Provider Nurse Practitioner Obstetrics & Gynecology
DX: O47.03 False labor before 37 completed weeks of gestation, third trimester (principal); Z3A.28 28 weeks gestation of pregnancy
CPT/HCPCS: 59025; 80305; 81001; 84112; 87086; 96365; G0463

== ENCOUNTER 2022-03-13 18:32 | Observation (INO) | payer BC, SELFPAY ==
[2022-03-13 14:03] VITALS: BP 133/81; PULSE 98; RESP 18; TEMP 36.7; O2SAT 97; BMI 35.7
[2022-03-13 14:24] LABS: Microscopic, Urine URINE MICROSCOPIC (MICROSCOPIC)
[2022-03-13 14:28] LABS: Appearance,Urine CLEAR (Clear); Bilirubin,Urine Negative (Negative); Blood, Urine 1+ (Negative); Color,Urine YELLOW (Yellow); Glucose,Urine (UA) Negative (Negative); Ketones,Urine Negative (Negative); Leukocyte Esterase,Urine 1+ (Negative); Nitrate,Urine Negative (Negative); Protein,Urine TRACE (Negative); Specific Gravity, Urine >= 1.030 (1.005-1.030)
[2022-03-13 14:40] LABS: Benzodiazepines Screen,Urine Negative ng/ml (<200)
[2022-03-13 14:41] LABS: Amphetamine/Metha Screen,Urine Negative ng/ml (<1000); Barbiturates Screen,Urine Negative ng/ml (<200)
[2022-03-13 14:42] LABS: Cannabinoid Screen,Urine Negative ng/ml (<50); Cocaine Screen,Urine Negative ng/ml (<300)
[2022-03-13 14:43] LABS: Methadone Screen,Urine Negative ng/ml (<300)
[2022-03-13 14:44] LABS: Opiate Screen,Urine Negative ng/ml (<300); Phencyclidine Screen,Urine Negative ng/ml (<25)
[2022-03-13 14:46] LABS: Bacteria,Urine 3+ /lpf; Calcium Oxalate Crystals,Urine 2+ /lpf
[2022-03-13 15:19] VITALS: BMI 35.7
[2022-03-13 16:28] LABS: Fetal Fibronectin (Rapid) Negative (Negative)
[2022-03-13 19:48] LABS: Coronavirus 19, PCR Not Detected (NotDetected); Influenza A, PCR Not Detected (NotDetected); Influenza B, PCR Not Detected (NotDetected)
--- NOTE | 2022-03-14 09:20 | HMH.PHAINT1 ---
Pharmacy Intervention Comments: MEDICATION RECONCILIATION COMPLETE USING EXTERNAL PHARMACY FILL HISTORY AND MOST RECENT OB OFFICE VISIT
--- NOTE | 2022-03-14 11:16 | EXP.HPDC ---
General Admission date:: 03/13/22 Discharge date: 03/14/22 *Admission Date: 03/13/22 *Chief complaint: contractions *History of present illness: 31 yo admitted at 30 0/7 for observation with contractions She was initially treated with IV fluid and subcutaneous brethine but continued to have regular contractions and cervix 1cm dilated She was admitted for observation, steroids and started on po procardia for tocolysis status [facility] Medical History Asthma History of Surgical History History of surgery on arm Family History (Updated 02/16/22 @ 08:26 by ORAL Randall) Diabetes Stroke Social History (Updated 02/16/22 @ 09:21 by Alverto Mast MD) Smoking Status: Never smoker alcohol intake: never substance use type: denies use current occupational status: employed Travel in the last 8 weeks: None Review of Systems Constitutional Constitutional: Reports system reviewed and no additional complaints, except as documented and Denies headache(s) ENT Ears, Nose, Mouth, and Throat: Denies headache(s) *Genitourinary Genitourinary: Denies abnormal vaginal bleeding Comments: + contractions *Neurologic Neurologic: Denies headache(s) and Denies other visual disturbances Exam Data for Last 24 hours Vital signs and Labs for Last 24 Hours: Temp Pulse Resp BP Pulse Ox 98.1 F 98 H 18 133/81 97 03/13/22 14:03 03/13/22 14:03 03/13/22 14:03 03/13/22 14:03 03/13/22 14:03 Laboratory Results - last 24 hr 03/13/22 14:04: Urine Color Yellow, Urine Appearance Clear, Urine pH 6.0, Ur Specific Yale >= 1.030, Urine Protein Trace, Urine Glucose (UA) Negative, Urine Ketones Negative, Urine Blood 1+, Urine Nitrate Negative, Urine Bilirubin Negative, Urine Urobilinogen 2.0, Ur Leukocyte Esterase 1+ A, Urine RBC 5-10, Urine WBC 3-5, Ur Squamous Epith Cells 3-5, Calcium Oxalate Crystal 2+, Urine Bacteria 3+ 03/13/22 14:04: Urine Opiates Screen Negative, Urine Methadone Screen Negative, Ur Barbituates Screen Negative, Ur Phencyclidine Scrn Negative, Ur Amphetamines Screen Negative, U Benzodiazepines Scrn Negative, Urine Cocaine Screen Negative, U Marijuana (THC) Screen Negative 03/13/22 14:57: Fibronectin Negative 03/13/22 19:40: SARS-CoV-2 (PCR) Not detected, Influenza A Untype (PCR) Not detected, Influenza Type B (PCR) Not detected I & O for Last 24 hours: Intake & Output 03/11/22 03/12/22 03/13/22 03/14/22 11:59 11:59 11:59 11:59 Weight 249 lb Constitutional Constitutional: no acute distress *Routine HEENT Exam Head: Present normocephalic Eye: Absent conjunctival icterus or scleral injection ENT: Present mucous membranes moist *Routine Neck Exam Neck: Present supple *Routine Respiratory Exam Respiratory: Present CTA bilaterally; Absent respiratory distress *Routine Cardiovascular Exam Cardiovascular: Present RRR *Routine Abdominal Exam Abdominal: Present soft; Absent tenderness or distended *Routine Rectal Exam Rectal:: deferred *Routine Genitalia Exam Genitalia:: normal female Comment:: cervix 1cm *Routine Extremities Exam Extremities: Present edema (1+) *Routine Skin Exam Skin: Present intact and dry *Routine Neurological Exam Neurological: Present alert and oriented X3 Meds Home Medications and Allergies Home Medications Medication Instructions Recorded Confirmed Type pediatric multivitamin no.140-iron 2 tab PO DAILY Supplement 10/05/21 03/14/22 History fumarate 18 mg iron chewable tablet (Children's Chewable Vitamin Complete) ferrous sulfate 325 mg (65 mg 325 mg PO DAILY Supplement 03/14/22 03/14/22 History iron) tablet nifedipine 10 mg capsule 20 mg PO Q6H #240 caps 03/14/22 Rx New Prescriptions to Start Prescriptions: Kendy Frost Allerg
== END 2022-03-14 14:55 | disposition home or self-care (01) ==
LOC: OBOUT 18:33 → OB 18:33
PROVIDERS: Admitting Provider Obstetrics & Gynecology; PCP Nurse Practitioner Family; Visit Provider Obstetrics & Gynecology
DX: O60.03 Preterm labor without delivery, third trimester (principal); Z3A.32 32 weeks gestation of pregnancy; Z20.822 Contact with and (suspected) exposure to COVID-19
CPT/HCPCS: 59025; 80305; 81001; 82731; 87086; 96360; 96361; 96372; C9803; G0378; U0003; U0005

== ENCOUNTER → 2022-03-16 11:20 | Outpatient (CLI) | payer BC, SELFPAY ==
--- NOTE | 2022-03-16 11:28 | US_ITS ---
FINAL REPORT CLINICAL HISTORY: LGA; labor FINDINGS: There is a single live intrauterine gestation. Presentation is cephalic. Placenta is fundal, grade 2. Heart rate is 135 beats per minute. movement and practice breathing is seen. AMNIOTIC FLUID: Appropriate amount. RYAN: 13.9 cm S/D ratio: 2.39 MEASUREMENTS: ULTRASOUND AGE: 32 weeks 5 days. GESTATION AGE: 32 weeks 5 days. ESTIMATED WEIGHT: 2042 g GROWTH PERCENTILE: 41% LMP percentile BPD: 8.1 cm corresponding with 32 weeks 5 days. OFD: 10.4 cm corresponding with 32 weeks 5 days. HC: 29.4 cm corresponding with 32 weeks 3 days. AC: 28.9 cm corresponding with 33 weeks 0 days. FL: 6.3 cm corresponding with 32 weeks 5 days. HC/AC: 1.02 CI: 78% FL/BPD: 78% FL/AC: 22% Breathin/2 Movement: 2/2 Tone: 2/2 Fluid volume: 2/2 BPP: 01/25 IMPRESSION: Single living IUP with an ultrasound age of 32 weeks 5 days. BPP: 01/25. RYAN of 13.9 cm Reviewed, Interpreted and Dictated by Zana Jensen MD Transcribed by Jerilyn Montejo Authenticated and [facility]
== END ==
PROVIDERS: PCP Nurse Practitioner Family; Visit Provider Obstetrics & Gynecology
DX: O36.60X0 Maternal care for excessive fetal growth, unspecified trimester, not applicable or unspecified (principal); O60.00 Preterm labor without delivery, unspecified trimester; Z3A.32 32 weeks gestation of pregnancy
CPT/HCPCS: 76816; 76819; 76820

== ENCOUNTER 2022-03-26 09:56 | Emergency (ER) | payer BC, SELFPAY ==
--- NOTE | 2022-03-26 10:44 | EXP.UTC ---
Discharge Plan Disposition Patient Disposition: Home, Self-Care Condition: Good Prescriptions Prescriptions: New azithromycin [Zithromax] 250 mg tablet 250 mg PO UD DOSE PK Qty: 6 0RF Rx Instructions: Take two (2) tablets today, then one (1) tablet days #2 thru #5 No Action Child Chewable Vitamn Complete 18 mg iron tablet,chewable 2 tab PO DAILY ferrous sulfate 325 mg (65 mg iron) tablet 325 mg PO DAILY nifedipine 10 mg Capsule 20 mg PO Q6H Qty: 240 0RF Referrals Follow up/Referrals: Denisa Scmhitz APRN [Primary Care Provider] - See instructions Activity Restrictions/Add. Instructions Additional Instructions/Restrictions: Drink plenty of fluids. Take tylenol or ibuprofen for pain or fever. Take the medications as directed. Follow up with your regular doctor. GO TO THE ER FOR ANY WORSENING SYMPTOMS Quarantine until you know the results of your covid-19 test. Notify your school or workplace of your results and follow their instructions regarding return to work/school. Clinical Impressions Clinical Impression: Pharyngitis, Bronchitis Discharge ED Provider: Jose M Engel [facility] General Stated complaint: Sore throat, cough Time Seen by Provider: 03/26/22 10:42 History of Present Illness Provider Complaint: She states that for the past 2 days she has had sore throat, chills, low grade fever, and malaise. Related Data Home Medications Medication Instructions Recorded Confirmed pediatric multivitamin no.140-iron 2 tab PO DAILY Supplement 10/05/21 03/23/22 fumarate 18 mg iron chewable tablet (Children's Chewable Vitamin Complete) ferrous sulfate 325 mg (65 mg 325 mg PO DAILY Supplement 03/14/22 03/23/22 iron) tablet Previous Rx's Medication Instructions Recorded nifedipine 10 mg capsule 20 mg PO Q6H #240 caps 03/14/22 azithromycin 250 mg tablet 250 mg PO UD DOSE PK #6 tabs 03/26/22 (Zithromax) Allergies Allergy/AdvReac Type Severity Reaction Status Date / Time amoxicillin [From AUGMENTIN] Allergy Unknown Verified 03/26/22 11:05 clavulanic acid Allergy Unknown Verified 03/26/22 11:05 [From AUGMENTIN] [facility] Medical History Asthma History of Surgical History History of surgery on arm Family History Other Diabetes Stroke Social History Smoking Status: Never smoker alcohol intake: never substance use type: denies use current occupational status: employed Travel in the last 8 weeks: None ROS Obtained: Yes All systems reviewed & no additional complaints except as documented Constitutional Constitutional: Reports chills and Reports fever(s) Eyes Eyes: Denies eye discharge ENT Ears, Nose, Mouth, and Throat: Reports as per HPI Cardiovascular Cardiovascular: Denies chest pain Respiratory Respiratory: Denies chest congestion and Reports cough Gastrointestinal Gastrointestingal: Reports nausea; Denies abdominal pain, constipation, cramping, diarrhea or vomiting Musculoskeletal Musculoskeletal: Denies arthralgias Integumentary/Breasts Skin/Breast: Denies rash Neurologic Neurologic: Denies paresthesias Physical Exam General General appearance: alert and in no apparent distress Head Head exam: atraumatic, normocephalic and normal inspection Eye Eye exam: Present normal appearance, PERRL and EOMI ENT ENT exam: Present mucous membranes moist and normal external ear exam Expanded ENT Exam TM/Canal exam: Bilateral TM: erythema and bulging Nose exam: Absent sinus tenderness Mouth exam: Present normal external inspection; Absent drooling Teeth exam: Present normal inspection Throat exam: Present tonsillar erythema, tonsillomegaly and tonsillar exudate Neck Neck exam: Present normal inspec
[2022-03-26 11:03] VITALS: BP 127/72; PULSE 84; RESP 18; TEMP 36.9; O2SAT 96; BMI 35.3
[2022-03-26 11:05] LABS: UTC Strep Screen (Rapid) Negative (Negative)
[2022-03-26 11:08] VITALS: BP 127/72; PULSE 84; RESP 18; TEMP 36.9
[2022-03-26 11:13] LABS: Adenovirus,PCR Not Detected (NotDetected); Bordetella Pertussis Not Detected (NotDetected); Chlamydophila Pneumoniae, PCR Not Detected (NotDetected); Coronavirus 19, PCR Not Detected (NotDetected); Coronavirus 229E Not Detected (NotDetected); Coronavirus NL63 Not Detected (NotDetected); Coronavirus OC43 Not Detected (NotDetected); Coronovirus HKU1,PCR Not Detected (NotDetected); Human Metapneumovirus Not Detected (NotDetected); Influenza A, PCR Not Detected (NotDetected); Influenza AH1, 2009 Not Detected (NotDetected); Influenza AH1, PCR Not Detected (NotDetected); Influenza AH3,PCR Not Detected (NotDetected); Influenza B, PCR Not Detected (NotDetected); Mycoplasma Pneumoniae, PCR Not Detected (NotDetected); Parainfluenza 1, PCR Not Detected (NotDetected); Parainfluenza 2, PCR Not Detected (NotDetected); Parainfluenza 3, PCR Not Detected (NotDetected); Parainfluenza 4, PCR Not Detected (NotDetected); Rhinovirus/Enterovirus Not Detected (NotDetected)
[2022-03-26 12:45] LABS: Respiratory Syncytial Virus Detected (NotDetected)
== END 2022-03-26 11:09 | disposition home or self-care (01) ==
PROVIDERS: Emergency Provider Nurse Practitioner Family; PCP Nurse Practitioner Family
DX: J20.5 Acute bronchitis due to respiratory syncytial virus (principal)
CPT/HCPCS: 87581; 87632; 87798; 87880; 99212; C9803; G0463; U0003; U0005

== ENCOUNTER 2022-04-01 22:53 | Outpatient (CLI) | payer BC, SELFPAY ==
[2022-04-01 22:58] VITALS: BMI 35.9
[2022-04-01 23:18] VITALS: BP 130/76; PULSE 79; RESP 18; TEMP 36.9; O2SAT 99; BMI 37.3
[2022-04-01 23:23] LABS: Microscopic, Urine URINE MICROSCOPIC (MICROSCOPIC)
[2022-04-01 23:27] LABS: Appearance,Urine SL CLOUDY (Clear); Bilirubin,Urine Negative (Negative); Blood, Urine TRACE-I (Negative); Color,Urine YELLOW (Yellow); Glucose,Urine (UA) Negative (Negative); Ketones,Urine Negative (Negative); Leukocyte Esterase,Urine Negative (Negative); Nitrate,Urine Negative (Negative); Protein,Urine TRACE (Negative); Specific Gravity, Urine >= 1.030 (1.005-1.030)
[2022-04-01 23:36] LABS: Fetal Membrane Rupture (Rapid) Negative (Negative)
[2022-04-01 23:38] LABS: Amphetamine/Metha Screen,Urine Negative ng/ml (<1000); Barbiturates Screen,Urine Negative ng/ml (<200)
[2022-04-01 23:39] LABS: Benzodiazepines Screen,Urine Negative ng/ml (<200)
[2022-04-01 23:40] LABS: Cannabinoid Screen,Urine Negative ng/ml (<50); Cocaine Screen,Urine Negative ng/ml (<300)
[2022-04-01 23:41] LABS: Methadone Screen,Urine Negative ng/ml (<300); Phencyclidine Screen,Urine Negative ng/ml (<25)
[2022-04-01 23:42] LABS: Opiate Screen,Urine Negative ng/ml (<300)
[2022-04-01 23:51] LABS: Bacteria,Urine Trace /lpf; RBC,Urine Occasional #/hpf (0-3); WBC,Urine Occasional #/hpf (0-3)
== END 2022-04-02 01:10 | disposition home or self-care (01) ==
LOC: OBOUT 22:55 → OB 22:56
PROVIDERS: PCP Nurse Practitioner Family; Visit Provider Obstetrics & Gynecology
DX: O47.03 False labor before 37 completed weeks of gestation, third trimester (principal); Z3A.34 34 weeks gestation of pregnancy
CPT/HCPCS: 59025; 80305; 81001; 84112; 96365; G0463

== ENCOUNTER → 2022-04-14 17:10 | Outpatient (CLI) | payer BC, SELFPAY | PROVIDERS: PCP Nurse Practitioner Obstetrics & Gynecology; Visit Provider Nurse Practitioner Obstetrics & Gynecology | DX: Z34.90 Encounter for supervision of normal pregnancy, unspecified, unspecified trimester (principal); Z3A.35 35 weeks gestation of pregnancy | CPT/HCPCS: 86403 ==

== ENCOUNTER 2022-04-16 13:46 | Inpatient (IN) | payer BC, SELFPAY ==
[2022-04-16 12:20] VITALS: BMI 36.1
[2022-04-16 12:56] VITALS: BP 130/91; PULSE 80; RESP 18; TEMP 36.8; O2SAT 96; BMI 36.1
[2022-04-16 12:56] LABS: Microscopic, Urine URINE MICROSCOPIC (MICROSCOPIC)
[2022-04-16 13:00] LABS: Appearance,Urine CLEAR (Clear); Bilirubin,Urine Negative (Negative); Blood, Urine Negative (Negative); Color,Urine YELLOW (Yellow); Glucose,Urine (UA) Negative (Negative); Ketones,Urine Negative (Negative); Leukocyte Esterase,Urine 2+ (Negative); Nitrate,Urine Negative (Negative); Protein,Urine Negative (Negative); Specific Gravity, Urine <= 1.005 (1.005-1.030); Urobilinogen,Urine 0.2 EU/dl (0.2)
[2022-04-16 13:12] LABS: Benzodiazepines Screen,Urine Negative ng/ml (<200)
[2022-04-16 13:13] LABS: Amphetamine/Metha Screen,Urine Negative ng/ml (<1000); Barbiturates Screen,Urine Negative ng/ml (<200)
[2022-04-16 13:14] LABS: Cannabinoid Screen,Urine Negative ng/ml (<50)
[2022-04-16 13:15] LABS: Bacteria,Urine 1+ /lpf; Cocaine Screen,Urine Negative ng/ml (<300); Methadone Screen,Urine Negative ng/ml (<300)
[2022-04-16 13:16] LABS: Mucus,Urine Trace /lpf; Opiate Screen,Urine Negative ng/ml (<300); WBC,Urine 20-50 #/hpf (0-3)
[2022-04-16 13:17] LABS: Phencyclidine Screen,Urine Negative ng/ml (<25)
[2022-04-16 14:10] LABS: Coronavirus 19, PCR Not Detected (NotDetected); Influenza A, PCR Not Detected (NotDetected); Influenza B, PCR Not Detected (NotDetected)
[2022-04-16 14:17] LABS: Basophils # 0.1 K/mm3 (0-0.2); Basophils % 0.5 % (0.1-2.0); Eosinophils # 0.1 K/mm3 (0.0-0.4); Eosinophils % 0.6 % (0.1-12.0); Hematocrit 37.5 % (37.0-47.0); Hemoglobin 12.6 g/dL (12.2-16.2); Lymphocytes # 1.5 K/mm3 (0.7-4.5); Lymphocytes % 16.6 % (10-50); Mean Corpuscular HGB Conc 33.7 g/dL (31.8-35.4); Mean Corpuscular Hemoglobin 30.6 pg (27.0-31.2); Mean Corpuscular Volume 90.7 fl (81-99); Mean Platelet Volume 9.2 fl (7.4-10.4); Monocytes # 0.4 K/mm3 (0.1-1.0); Monocytes % 3.9 % (1.7-9.3); Neutrophils # 7.1 K/mm3 (1.8-7.8); Neutrophils % 78.4 % (37.0-80.0); Platelet Count 186 K/mm3 (142-424); Red Blood Count 4.14 M/mm3 (4.20-5.40); Red Cell Distribution Width 14.4 % (11.5-17.5); White Blood Count 9.1 K/mm3 (4.8-10.8)
--- NOTE | 2022-04-16 17:37 | EXP.HP ---
History of Present Illness *Admission Date: 04/16/22 *Reason for visit:: contractions *History of present illness: 31 yo @ 36 11/24 She presented with regular contractions Cervical change noted in triage, along with bloody show NST category 1 has been complicated by contractions managed with po procardia She received steroids 4 weeks ago PFSH [facility] Medical History Asthma History of Surgical History History of surgery on arm Family History Other Diabetes Stroke Social History Smoking Status: Never smoker alcohol intake: never substance use type: denies use current occupational status: employed Travel in the last 8 weeks: None Review of Systems Constitutional Constitutional: Reports system reviewed and no additional complaints, except as documented and Denies headache(s) ENT Ears, Nose, Mouth, and Throat: Denies headache(s) *Genitourinary Comments: + contractions + bloody show *Neurologic Neurologic: Denies headache(s) and Denies other visual disturbances Meds Home Medications and Allergies Home Medications Medication Instructions Recorded Confirmed Type pediatric multivitamin no.140-iron 2 tab PO DAILY Supplement 10/05/21 04/16/22 History fumarate 18 mg iron chewable tablet (Children's Chewable Vitamin Complete) ferrous sulfate 325 mg (65 mg 325 mg PO DAILY Supplement 03/14/22 04/16/22 History iron) tablet nifedipine 10 mg capsule 20 mg PO Q6H contractions 04/16/22 04/16/22 History New Prescriptions to Start Prescriptions: Allergies Allergy/AdvReac Type Severity Reaction Status Date / Time amoxicillin [From AUGMENTIN] Allergy Unknown Verified 04/14/22 09:44 clavulanic acid Allergy Unknown Verified 04/14/22 09:44 [From AUGMENTIN] Exam Data for Last 24 hours Vital signs and Labs for Last 24 Hours: Temp Pulse Resp BP Pulse Ox 98.2 F 80 18 130/91 H 96 04/16/22 12:56 04/16/22 12:56 04/16/22 12:56 04/16/22 12:56 04/16/22 12:56 Laboratory Results - last 24 hr 10/28/22 12:24: Urine Color Yellow, Urine Appearance Clear, Urine pH 6.0, Ur Specific [place] <= 1.005, Urine Protein Negative, Urine Glucose (UA) Negative, Urine Ketones Negative, Urine Blood Negative, Urine Nitrate Negative, Urine Bilirubin Negative, Urine Urobilinogen 0.2, Ur Leukocyte Esterase 2+ A, Urine WBC 20-50, Ur Squamous Epith Cells 10-20, Urine Bacteria 1+, Urine Mucus Trace 04/16/22 12:24: Urine Opiates Screen Negative, Urine Methadone Screen Negative, Ur Barbituates Screen Negative, Ur Phencyclidine Scrn Negative, Ur Amphetamines Screen Negative, U Benzodiazepines Scrn Negative, Urine Cocaine Screen Negative, U Marijuana (THC) Screen Negative 04/16/22 13:55: WBC 9.1, RBC 4.14 L, Hgb 12.6, Hct 37.5, MCV 90.7, MCH 30.6, MCHC 33.7, RDW 14.4, Plt Count 186, MPV 9.2, Neut % (Auto) 78.4, Lymph % (Auto) 16.6, [place] % (Auto) 3.9, Eos % (Auto) 0.6, Baso % (Auto) 0.5, Neut # (Auto) 7.1, Lymph # (Auto) 1.5, [place] # (Auto) 0.4, Eos # (Auto) 0.1, Baso # (Auto) 0.1 04/16/22 13:55: SARS-CoV-2 (PCR) Not detected, Influenza A Untype (PCR) Not detected, Influenza Type B (PCR) Not detected 04/16/22 13:55: Blood Type A Positive, Antibody Screen Negative I & O for Last 24 hours: Intake & Output 04/14/22 04/15/22 04/16/22 04/17/22 11:59 11:59 11:59 11:59 Weight 252 lb Constitutional Constitutional: no acute distress *Routine HEENT Exam Head: Present normocephalic Eye: Absent conjunctival icterus or scleral injection ENT: Present mucous membranes moist *Routine Neck Exam Neck: Present supple *Routine Respiratory Exam Respiratory: Present CTA bilaterally; Absent respiratory distress *Routine Cardiovascular Exam Cardiovascula
--- NOTE | 2022-04-16 19:30 | EXP.ANES.CKL ---
[facility] Medical History Asthma History of Surgical History History of surgery on arm Family History Other Diabetes Stroke Social History Smoking Status: Never smoker alcohol intake: never substance use type: denies use current occupational status: employed Travel in the last 8 weeks: None [facility] Anesthesia Checklist Patient Identification Patient Identification: Arm Band Structural Data Admitted From: Inpatient Planned Operative Procedure/s: labor epidural Consent for Planned Operative Procedure(s) Verified: Yes Verified Documents: Surgical Consent and History and Physical NPO Status Verified Time NPO: 13:00 Additional verifications Anesthesia Reactions: No Airway Assessment C-Spine Mobility Assessed: Yes TMJ Mobility Assessed: Yes Dentition: Good Dentition Neurological Assessment Level of Consciousness: Awake and Alert Anesthesia Plan Anesthesia Risk discussed: Yes Anesthesia Plan: Verified ASA Class: II Anesthesia Type: Epidural
--- NOTE | 2022-04-16 20:35 | EXP.DN ---
Delivery Note Delivery Date:: 04/16/22 Delivery Time:: 20:21 Anesthesia Type: Epidural Was labor medically induced?: No Gestational age (weeks): 36 Infant delivered prior to 39 weeks?: Yes Justification for early elective delivery:: Active Labor Infant Gender: Female at 1 minute: 9 at 5 minutes: 9 Delivery Procedure:: Spontaneous vaginal delivery of vigorous live born female infant over intact perineum. Delivery uncomplicated No nuchal cord No shoulder dystocia with delivery Infant placed in ANJALI immediately after delivery, with standard nursing assessment performed Infant Apgars: 9 & 9 Placenta spontaneously expressed and examined; noted to be complete/intact. Vulva, vagina, and cervix inspected; no lacerations present Fundal massage performed with appropriate firm uterus EBL: 300 cc All sponge/needle/instrument counts correct at conclusion of procedure Mother and stable to recovery Placental Delivery Description: Spontaneous
[2022-04-17 07:55] VITALS: BP 123/69; PULSE 85; RESP 17; TEMP 36.5; O2SAT 98
[2022-04-17 08:54] LABS: Hematocrit 35.6 % (37.0-47.0); Hemoglobin 11.9 g/dL (12.2-16.2)
--- NOTE | 2022-04-17 12:46 | P.PN_ITS ---
Subjective *Date: 04/17/22 *Time: 12:46 Interval history: PPD #1 No unusual complaints She is feeling well and reports minimal perineal pain Lochia is appropriate She is asymptomatic with mild anemia; Hgb 11.9 She is ambulating and voiding without difficulty She denies depression symptoms Medical Exam Vital signs and Labs for Last 24 Hours: Vital Signs Temp Pulse Pulse Resp BP BP Pulse Ox 04/17/22 07:55 97.7 F 85 17 123/69 98 04/16/22 12:56 98.2 F 80 18 130/91 H 96 Laboratory Results - last 24 hr 04/16/22 12:24: Urine Color Yellow, Urine Appearance Clear, Urine pH 6.0, Ur Specific [place] <= 1.005, Urine Protein Negative, Urine Glucose (UA) Negative, Urine Ketones Negative, Urine Blood Negative, Urine Nitrate Negative, Urine Bilirubin Negative, Urine Urobilinogen 0.2, Ur Leukocyte Esterase 2+ A, Urine WBC 20-50, Ur Squamous Epith Cells 10-20, Urine Bacteria 1+, Urine Mucus Trace 04/16/22 12:24: Urine Opiates Screen Negative, Urine Methadone Screen Negative, Ur Barbituates Screen Negative, Ur Phencyclidine Scrn Negative, Ur Amphetamines Screen Negative, U Benzodiazepines Scrn Negative, Urine Cocaine Screen Negative, U Marijuana (THC) Screen Negative 04/16/22 13:55: WBC 9.1, RBC 4.14 L, Hgb 12.6, Hct 37.5, MCV 90.7, MCH 30.6, MCHC 33.7, RDW 14.4, Plt Count 186, MPV 9.2, Neut % (Auto) 78.4, Lymph % (Auto) 16.6, [place] % (Auto) 3.9, Eos % (Auto) 0.6, Baso % (Auto) 0.5, Neut # (Auto) 7.1, Lymph # (Auto) 1.5, [place] # (Auto) 0.4, Eos # (Auto) 0.1, Baso # (Auto) 0.1 04/16/22 13:55: SARS-CoV-2 (PCR) Not detected, Influenza A Untype (PCR) Not detected, Influenza Type B (PCR) Not detected 04/16/22 13:55: Blood Type A Positive, Antibody Screen Negative 04/17/22 08:20: Hgb 11.9 L, Hct 35.6 L I & O for Labs for Last 24 Hours: Intake & Output 04/15/22 04/16/22 04/17/22 04/18/22 11:59 11:59 11:59 11:59 Weight 252 lb Comment:: No acute distress Comment:: breathing unlabored Comment:: Regular rate, normal peripheral pulses Comments:: abdomen soft, non-tender, non-distended Comment:: uterine fundus firm below umbilicus Comment:: 1+ edema bilateral lower extremities Comment:: no rash Assessment and Plan *Assessment and plan (1) 36 weeks gestation of : Status: Acute Category: Medical Code(s): Z3A.36 - 36 weeks gestation of (2) Active labor: Status: Acute Category: Medical Code(s): O60.10X0 - labor with delivery, unspecified trimester, not applicable or unspecified (3) Normal spontaneous vaginal delivery: Status: Acute Category: Medical Code(s): O80 - Encounter for full-term uncomplicated delivery Plan Routine care Continue PNV with FeSO4 Anticipate discharge home tomorrow
[2022-04-17 16:20] VITALS: BP 128/76; PULSE 68; RESP 16; TEMP 36.6; O2SAT 98
[2022-04-18 08:18] VITALS: BP 117/62; PULSE 77; RESP 17; TEMP 36.3; O2SAT 100
--- NOTE | 2022-04-18 11:17 | EXP.DC.SUM ---
General Admission date:: 04/16/22 HPI HPI HPI: 31 yo @ 36 6/7 She presented with regular contractions Cervical change noted in triage, along with bloody show NST category 1 has been complicated by contractions managed with po procardia She received steroids 4 weeks ago Hospital Course Hospital Course Hospital Course: course uncomplicated She is discharged home on PPD #2 in stable condition Vital signs are stable and exam is normal She is tolerating a regular diet, ambulating and voiding without difficulty Lochia is appropriate She will f/u in office with Dr. Mast in 2 weeks Exam Data for Last 24 hours Vital signs and Labs for Last 24 Hours: Temp Pulse Resp BP Pulse Ox 97.4 F L 77 17 117/62 100 04/18/22 08:18 04/18/22 08:18 04/18/22 08:18 04/18/22 08:18 04/18/22 08:18 I & O for Last 24 hours: Intake & Output 04/15/22 04/16/22 04/17/22 04/18/22 11:59 11:59 11:59 11:59 Weight 252 lb Microbiology Reports for the Last 24 Hours: Microbiology 04/16/22 12:24 Urine,Clean Catch Urine Culture - Final Multiple organisms, suggests contamination. Constitutional Constitutional: no acute distress *Routine HEENT Exam Head: Present normocephalic Eye: Absent conjunctival icterus or scleral injection ENT: Present mucous membranes moist *Routine Neck Exam Neck: Present supple *Routine Respiratory Exam Respiratory: Present CTA bilaterally *Routine Cardiovascular Exam Cardiovascular: Present RRR *Routine Abdominal Exam Abdominal: Present soft; Absent tenderness or distended *Routine Rectal Exam Patient deferred: visual exam and digital exam *Routine Exam Patient deferred: external exam Comments: Fundus firm below umbilicus *Routine Extremities Exam Extremities: Present edema *Routine Neurological Exam Neurological: Present alert and oriented X3 Routine Psychiatric Exam Psychiatric: Present normal affect; Absent depressed DS: Diagnosis Discharge Diagnosis (1) 36 weeks gestation of : Status: Acute (2) Active labor: Status: Acute (3) Normal spontaneous vaginal delivery: Status: Acute Meds Home Medications and Allergies Home Medications Medication Instructions Recorded Confirmed Type pediatric multivitamin no.140-iron 2 tab PO DAILY Supplement 10/05/21 04/16/22 History fumarate 18 mg iron chewable tablet (Children's Chewable Vitamin Complete) ferrous sulfate 325 mg (65 mg 325 mg PO DAILY Supplement 03/14/22 04/16/22 History iron) tablet nifedipine 10 mg capsule 20 mg PO Q6H contractions 04/16/22 04/16/22 History New Prescriptions to Start Prescriptions: Allergies Allergy/AdvReac Type Severity Reaction Status Date / Time amoxicillin [From AUGMENTIN] Allergy Unknown Verified 04/14/22 09:44 clavulanic acid Allergy Unknown Verified 04/14/22 09:44 [From AUGMENTIN] Discharge Plan Disposition Patient Disposition: Home, Self-Care Discharge Order Discharge Orders: Discharge Order (Routine); Ordered 04/18/22 Ordered By: Kendy Mooney Follow up Plan Prescriptions/Medication Reconciliation: New ibuprofen 400 mg Tablet 800 mg PO Q6HP PRN (Reason: Mild To Moderate Pain) Qty: 30 0RF acetaminophen 325 mg Tablet 650 mg PO Q4HP PRN (Reason: Mild Pain) Qty: 30 0RF Continued Child Chewable Vitamn Complete 18 mg iron tablet,chewable 2 tab PO DAILY ferrous sulfate 325 mg (65 mg iron) tablet 325 mg PO DAILY Discontinued nifedipine 10 mg capsule 20 mg PO Q6H Problem Reconciliation Problems Reviewed?: Yes Patient Discharge Instructions ACTIVITY: Continue current activity and No heavy lifting DIET: continue same diet Additional Instructions: -No heavy lifting/strenuous activity. -Nothing in the vagina for 6 weeks. -Call the office on Tuesday to schedule a 2 week follow up appoin
== END 2022-04-18 12:45 | disposition home or self-care (01) | DRG 807 ==
LOC: OBOUT 13:47 → OB 13:47
PROVIDERS: Admitting Provider Obstetrics & Gynecology; PCP Nurse Practitioner Family; Referring Provider Nurse Practitioner Obstetrics & Gynecology; Visit Provider Obstetrics & Gynecology
DX: O60.14X0 Preterm labor third trimester with preterm delivery third trimester, not applicable or unspecified (principal); Z37.0 Single live birth; Z3A.36 36 weeks gestation of pregnancy
CPT/HCPCS: 59409; 36415; 59025; 80305; 81001; 85014; 85018; 85025; 86850; 87086; 90707; C1758; C9803; U0003; U0005

== ENCOUNTER 2022-04-21 18:16 | Emergency (ER) | payer BC, SELFPAY ==
[2022-04-21 18:18] VITALS: BP 170/82; PULSE 112; RESP 18; TEMP 37.5; O2SAT 96; BMI 35.2
[2022-04-21 18:30] VITALS: BP 156/75; PULSE 114; RESP 16; O2SAT 97
--- NOTE | 2022-04-21 18:37 | PC.NURSE ---
notified ER of pt presenting s/s
[2022-04-21 18:42] VITALS: BMI 35.2
--- NOTE | 2022-04-21 18:52 | PC.NURSE ---
HEATHER JORDAN speaking with dr. cleary (telephone interviewer OB)
[2022-04-21 18:53] LABS: Basophils % 0.5 % (0.1-2.0); Eosinophils % 0.5 % (0.1-12.0); Hematocrit 39.3 % (37.0-47.0); Hemoglobin 13.2 g/dL (12.2-16.2); Lymphocytes # 0.8 K/mm3 (0.7-4.5); Lymphocytes % 11.2 % (10-50); Mean Corpuscular HGB Conc 33.5 g/dL (31.8-35.4); Mean Corpuscular Hemoglobin 31.4 pg (27.0-31.2); Mean Corpuscular Volume 93.6 fl (81-99); Mean Platelet Volume 8.3 fl (7.4-10.4); Monocytes # 0.2 K/mm3 (0.1-1.0); Monocytes % 3.4 % (1.7-9.3); Neutrophils % 84.5 % (37.0-80.0); Platelet Count 216 K/mm3 (142-424); Red Cell Distribution Width 14.2 % (11.5-17.5); White Blood Count 7.2 K/mm3 (4.8-10.8)
--- NOTE | 2022-04-21 18:53 | HMH.EDGENADL ---
Discharge Plan Disposition Patient Disposition: Still a Patient Condition: Good Prescriptions Prescriptions: No Action Child Chewable Vitamn Complete 18 mg iron tablet,chewable 2 tab PO DAILY acetaminophen 325 mg Tablet 650 mg PO Q4HP PRN (Reason: Mild Pain) Qty: 30 0RF ibuprofen 400 mg Tablet 800 mg PO Q6HP PRN (Reason: Mild To Moderate Pain) Qty: 30 0RF ferrous sulfate 325 mg (65 mg iron) tablet 325 mg PO DAILY Referrals Follow up/Referrals: Denisa Schmitz APRN [Primary Care Provider] - See instructions Clinical Impressions Clinical Impression: Fever, Problematic vaginal discharge, Hypertension Discharge ED Provider: Tigist Rosenthal General Adult HPI General Chief complaint: Fever Stated complaint: fever, just had baby 04/16, adm pain, back pain Time Seen by Provider: 04/21/22 18:24 History of Present Illness HPI narrative: This patient is a 31-year-old female with history of recent vaginal delivery on 04/16 presented to the emergency department for evaluation of fever, low back pain, pelvic cramping, and abnormal discharge. She states that she had been having back pain and cramping at home and assumed it was because of the epidural in labor, however she woke up with a fever today and passing large clump of what appeared to be tissue that she could not separate. She denies any other concerns, such as chest pain, shortness of breath, cough, congestion, vomiting, changes in bowel movements, or other issues. She denies any complications with this , such as prolonged rupture of membranes, preeclampsia, or other concerns. Related Data Home Medications Medication Instructions Recorded Confirmed pediatric multivitamin no.140-iron 2 tab PO DAILY Supplement 10/05/21 04/16/22 fumarate 18 mg iron chewable tablet (Children's Chewable Vitamin Complete) ferrous sulfate 325 mg (65 mg 325 mg PO DAILY Supplement 03/14/22 04/16/22 iron) tablet Previous Rx's Medication Instructions Recorded acetaminophen 325 mg tablet 650 mg PO Q4HP PRN Mild Pain #30 04/18/22 tabs ibuprofen 400 mg tablet 800 mg PO Q6HP PRN Mild To 04/18/22 Moderate Pain #30 tabs Allergies Allergy/AdvReac Type Severity Reaction Status Date / Time amoxicillin [From AUGMENTIN] Allergy Unknown Verified 04/14/22 09:44 clavulanic acid Allergy Unknown Verified 04/14/22 09:44 [From AUGMENTIN] [facility] Medical History Asthma History of Surgical History History of surgery on arm Family History Other Diabetes Stroke Social History Smoking Status: Never smoker alcohol intake: never substance use type: denies use current occupational status: employed Travel in the last 8 weeks: None ROS Obtained: Yes All systems reviewed & no additional complaints except as documented 14 point review of systems obtained and negative except as mentioned in HPI. Physical Exam General General appearance: alert and in no apparent distress Head Head exam: atraumatic and normocephalic Eye Eye exam: Present normal appearance, PERRL and EOMI ENT ENT exam: Present normal exam and normal oropharynx Neck Neck exam: Present normal inspection and full ROM Chest Chest inspection: Present normal inspection and symmetric chest wall rise; Absent tenderness Respiratory Respiratory exam: Present normal lung sounds bilaterally; Absent respiratory distress or wheezes Cardiovascular Cardiovascular exam: Present normal rhythm and tachycardia Abdominal Exam Abdominal exam: Present soft and tenderness (Suprapubic); Absent distention or guarding Extremities Exam Extremities exam: Present normal inspection Back Exam Back exam: Present normal inspection and full ROM Neurological Exam Neurolo
--- NOTE | 2022-04-21 18:55 | PC.NURSE ---
HEATHER JORDAN states Dr. Love wants pt sent to OB for further evaluation spoke with nakulRN in OB at this time, report given, requested that we have pt registered for OB and staff will come down to get pt.
[2022-04-21 18:57] LABS: Chloride 101 mmol/L (98-107); Sodium 137 mmol/L (136-145)
--- NOTE | 2022-04-21 18:57 | ECG_ITS ---
APPROVED REPORT Exam: Resting ECG HR:102 bpm ECG Measurements Heart Rate 102 AXES WV 156 P 53 QRSd 86 QRS 34 QT 319 T 31 QTc 378 Conclusion SINUS TACHYCARDIA ABNORMAL RHYTHM ECG UNCONFIRMED REPORT Electronically signed by : Jai King MD 04/23/2022 13:30:20
[2022-04-21 18:58] LABS: Potassium 3.7 mmoL/L (3.5-5.1)
[2022-04-21 19:00] VITALS: BP 142/85; PULSE 110; RESP 18; O2SAT 94
[2022-04-21 19:00] LABS: Alanine Aminotransferase 37 U/L (12-78); Alkaline Phosphatase 94 U/L (38-126); Anion Gap 14.7 mEq/L (5-15); Aspartate Amino Transferase 37 U/L (14-36); Bilirubin,Total 0.6 mg/dl (0.2-1.3); Blood Urea Nitrogen 11 mg/dl (7-17); Carbon Dioxide 25 mmol/L (22.0-30.0); Creatinine Clearance Estimated 206 mL/min (50-200); Estimated Glomerular Filt Rate 98 ml/min (>60); GFR (African American) 119 ML/MIN (>60); Globulin 2.9 g/dL (1.3-3.2); Lactic Acid 0.6 mmol/L (0.7-2.1); Total Protein,Serum 6.9 g/dl (6.3-8.2)
[2022-04-21 19:01] LABS: Albumin/Globulin Ratio 1.4 (1.1-1.8); Calcium 9.7 mg/dl (8.4-10.2); Glucose 87 mg/dl (74-100)
--- NOTE | 2022-04-21 19:04 | PC.NURSE ---
updated pt on POC
[2022-04-21 19:20] VITALS: BP 174/102; PULSE 95; RESP 16; TEMP 37.5; O2SAT 96
== END 2022-04-21 19:46 | disposition still patient (30) ==
PROVIDERS: Emergency Provider Emergency Medicine; PCP Nurse Practitioner Family
DX: M54.50 Low back pain, unspecified (principal); N89.8 Other specified noninflammatory disorders of vagina; R50.9 Fever, unspecified; R00.0 Tachycardia, unspecified; R03.0 Elevated blood-pressure reading, without diagnosis of hypertension; J45.909 Unspecified asthma, uncomplicated; Z88.0 Allergy status to penicillin; Z88.1 Allergy status to other antibiotic agents; Z88.3 Allergy status to other anti-infective agents; Z88.8 Allergy status to other drugs, medicaments and biological substances; Z82.49 Family history of ischemic heart disease and other diseases of the circulatory system; Z83.3 Family history of diabetes mellitus
CPT/HCPCS: 80053; 83605; 85025; 87040; 93005; 99284

== ENCOUNTER 2022-04-21 19:02 | Outpatient (CLI) | payer BC, SELFPAY ==
[2022-04-21 19:35] VITALS: BP 148/90; PULSE 101; RESP 20; TEMP 37.1; O2SAT 98; BMI 32.6
--- NOTE | 2022-04-21 21:49 | PC.NURSE ---
1934- pt arrived to floor via wheelchair from ED department for c/o lower back pain and abd cramping. Pt also brings a photo of a dime sized blood clot mixed with mucus she passed prior to arrival. Pt denies floaters, epigastric pain, headache, or ruq pain. No tenderness ilicited from palpation to lower back or abdomen. Pt states abd cramping feels like cramping to her. Bilateral lungs are clear throughout, HR is regular and strong. Non pitting trace edema noted. VS are as follows 148/90, hr 101, RR20. 98.8 temp orally, 98% o2. There is a 20 gauge IV present in her R AC. 1944- Report given to Dr Nugent and all labs reviewed. Orders for serial BPs, LR bolus x1, Rocephin 1gm, and Toradol PO 10mg. R/V. 20:30- Pt states her back pain has improved. Last two Bps are as follows 133/70, 133/75. Call light remains within reach. 20:50- Dr Nugent called. Orders to Discharge pt home to f/u as scheduled in office. Pt is to call Dr Mooney at end of the week if she is not improved. 20:55- POC discussed with pt. She is agreeable. 21:20- IV removed with catheter intact. no s.sx of infection or infiltration noted. 21:30- Pt off unit at this time.
== END 2022-04-21 21:30 | disposition home or self-care (01) ==
LOC: OBOUT 19:06 → OB 19:06
PROVIDERS: PCP Nurse Practitioner Family; Visit Provider Obstetrics & Gynecology
DX: M54.50 Low back pain, unspecified (principal); O90.89 Other complications of the puerperium, not elsewhere classified; R10.9 Unspecified abdominal pain
CPT/HCPCS: 96360; 96367; J0696

== ENCOUNTER → 2022-09-10 13:46 | Outpatient (CLI) | payer BC, SELFPAY ==
--- NOTE | 2022-09-10 13:49 | XR_ITS ---
FINAL REPORT CLINICAL HISTORY: foot pain COMPARISON: 05/23/2021 FINDINGS: LEFT FOOT Three views of the left foot demonstrate no acute fracture or dislocation. The visualized joint spaces are normally aligned. There is a small plantar spur. The soft tissues are unremarkable. IMPRESSION: No acute bony abnormality. Reviewed, Interpreted and Dictated by Heri Romero MD Transcribed by Sigrid Charlton Authenticated and [facility]
== END ==
LOC: RAD 13:46
PROVIDERS: PCP Family Medicine; Visit Provider Orthopaedic Surgery
DX: M79.672 Pain in left foot (principal)
CPT/HCPCS: 73630

== ENCOUNTER 2023-04-12 15:55 | Emergency (ER) | payer BC, SELFPAY ==
[2023-04-12 16:35] VITALS: BP 130/85; PULSE 81; RESP 18; TEMP 36.9; O2SAT 98; BMI 41.6
[2023-04-12 16:52] VITALS: BP 130/85; PULSE 81; RESP 18; TEMP 36.9; O2SAT 98
[2023-04-12 16:52] LABS: UTC Strep Screen (Rapid) Negative (Negative)
--- NOTE | 2023-04-12 17:00 | EXP.UTC ---
Discharge Plan Disposition Patient Disposition: Home, Self-Care Condition: Good Prescriptions Prescriptions: New azithromycin [Zithromax Z-Felipe] 250 mg tablet See Rx Instructions .ROUTE .COMPLEX 5 Days Qty: 6 0RF Rx Instructions: For 250 mg dose pack: take 500 mg today (day 1), then 250 mg for 4 days (days 2-5) methylprednisolone [Medrol (Felipe)] 4 mg tablets,dose pack See Rx Instructions .Route .COMPLEX 6 Days Qty: 21 0RF Rx Instructions: taper pack; guaifenesin [Mucinex] 600 mg tablet extended release 12hr 1,200 mg PO BID PRN (Reason: cough) Qty: 20 0RF No Action escitalopram oxalate [Lexapro] 10 mg tablet 10 mg PO DAILY Qty: 30 10RF norgestimate-ethinyl estradiol [Sprintec (28)] 0.25-35 mg-mcg tablet 1 tab PO DAILY Qty: 28 11RF Referrals Follow up/Referrals: John Moreno MD [Primary Care Provider] - See instructions Activity Restrictions/Add. Instructions Additional Instructions/Restrictions: *Monitor Temp, Over the counter Motrin or Tylenol as directed/as needed Tylenol every 4 hours and Motrin every 6 hours (as long as your family doctor has told you that you can take it) for fever or pain. and straight to ER if unable to lower temp less than 101.0 after medication given *Warm salt water gargles may help to soothe the throat *Throat Lozenges? *Warm fluids like tea with honey may help to soothe the throat? *Sleep elevated *Humidifier/Vaporizer Take medication as prescribed Your throat swab was sent for culture. Those results are typically sent to your primary care. Be sure to follow up in 2-3 days with your family doctor/primary care physician if no improvement so they can review those result and treat if necessary. If you don?t have a primary care doctor, I recommend you get one but in the mean time, you will have to return to a walk in clinic Follow up IMMEDIATELY for new or worsening symptoms or no Noticeable improvement over the next 48-72 hours. 911 for difficulty breathing or swallowing Clinical Impressions Clinical Impression: Bronchitis Sinusitis Qualifiers: Sinusitis location: unspecified location Chronicity: unspecified Qualified Code(s): J32.9 - Chronic sinusitis, unspecified Instructions Patient Instructions: DI for Sinusitis, Sinusitis, Acute Bronchitis Discharge ED Provider: Neda Whatley [facility] General Stated complaint: sore throat, cough runny nse Mode of Arrival: Ambulatory Source of Information: Patient Limitations: No Limitations Time Seen by Provider: 04/12/23 17:00 Description of Symptoms (Recalled from Triage Doc. by RN): PATIENT C/O COUGH, SORE THROAT AND RUNNY NOSE X 1 WEEK HEENT Symptoms (Recalled from RN notes): Yes Resp Symptoms (Recalled from RN notes): Yes Skin Symptoms (Recalled from RN notes): No MS Symptoms (Recalled from RN notes): No Functional Status (Recalled from RN notes): WNL History of Present Illness Provider Complaint: Patient states that she has been having sinus congestion and pressure, cough, sore throat and drainage into her chest with cough States that she has been having it over a week and has tried OTC medication and it didnt help Related Data Previous Rx's Medication Instructions Recorded escitalopram oxalate 10 mg tablet 10 mg PO DAILY #30 tabs 05/04/22 (Lexapro) norgestimate 0.25 mg-ethinyl 1 tab PO DAILY #28 tabs 07/01/22 estradiol 35 mcg tablet (Sprintec (28)) azithromycin 250 mg tablet See Rx Instructions PO .COMPLEX 5 04/12/23 (Zithromax Z-Felipe) days #6 tabs guaifenesin 600 mg tablet, 1,200 mg PO BID PRN cough #20 tabs 04/12/23 extended release 12 hr (Mucinex) methylprednisolone 4 mg tablets in See Rx Instructions .Route 04/12/23 a dose pack (Medrol (Felipe)) .COMPLEX 6 days #21 tabs Allergies Allergy/AdvReac Type Severity Reaction Status Date / Time amoxicillin [From AUGMENTIN] Allergy Unknown Verified 09/10/22 14:19 clavulanic acid Allergy Unkno
== END 2023-04-12 17:16 | disposition home or self-care (01) ==
PROVIDERS: Emergency Provider Nurse Practitioner; PCP Family Medicine
DX: J20.9 Acute bronchitis, unspecified; J01.90 Acute sinusitis, unspecified; J45.909 Unspecified asthma, uncomplicated
CPT/HCPCS: 87880; 99212; 99214; G0463

== ENCOUNTER 2023-10-29 18:55 | Emergency (ER) | payer MEDICAID, SELFPAY ==
[2023-10-29 19:15] VITALS: BP 151/86; PULSE 86; RESP 20; TEMP 37.2; O2SAT 98; BMI 38.9
[2023-10-29 19:32] LABS: UTC Strep Screen (Rapid) Negative (Negative)
--- NOTE | 2023-10-29 19:37 | EXP.UTC ---
Discharge Plan Disposition Patient Disposition: Home, Self-Care Condition: Good Prescriptions Prescriptions: No Action escitalopram oxalate [Lexapro] 10 mg tablet 10 mg PO DAILY Qty: 30 10RF norgestimate-ethinyl estradiol [Sprintec (28)] 0.25-35 mg-mcg tablet 1 tab PO DAILY Qty: 28 11RF azithromycin [Zithromax Z-Felipe] 250 mg tablet See Rx Instructions .ROUTE .COMPLEX 5 Days Qty: 6 0RF Rx Instructions: For 250 mg dose pack: take 500 mg today (day 1), then 250 mg for 4 days (days 2-5) methylprednisolone [Medrol (Felipe)] 4 mg tablets,dose pack See Rx Instructions .Route .COMPLEX 6 Days Qty: 21 0RF Rx Instructions: taper pack; guaifenesin [Mucinex] 600 mg tablet extended release 12hr 1,200 mg PO BID PRN (Reason: cough) Qty: 20 0RF Referrals Follow up/Referrals: John Moreno MD [Primary Care Provider] - See instructions Activity Restrictions/Add. Instructions Additional Instructions/Restrictions: *Monitor Temp, Over the counter Motrin or Tylenol as directed/as needed Tylenol every 4 hours and Motrin every 6 hours (as long as your family doctor has told you that you can take it) for fever or pain. and straight to ER if unable to lower temp less than 101.0 after medication given *Warm salt water gargles may help to soothe the throat *Throat Lozenges? *Warm fluids like tea with honey may help to soothe the throat? *Sleep elevated *Humidifier/Vaporizer *Your throat swab was sent for culture. Those results are typically sent to your primary care. Be sure to follow up in 2-3 days with your family doctor/primary care physician if no improvement so they can review those result and treat if necessary. If you don?t have a primary care doctor, I recommend you get one but in the mean time, you will have to return to a walk in clinic Follow up IMMEDIATELY for new or worsening symptoms or no Noticeable improvement over the next 48-72 hours. 911 for difficulty breathing or swallowing You were tested for today for Upper Respiratory Panel with COVID19 your test result should be back in the next 8-24hours, you may check for your results on the [facility] My Health Portal Clinical Impressions Clinical Impression: Viral syndrome Instructions Patient Instructions: DI for Viral Syndrome Discharge ED Provider: Neda Whatley [facility] [place] HPI General Stated complaint: sore throat,fever Mode of Arrival: Ambulatory Source of Information: Patient Limitations: No Limitations Time Seen by Provider: 10/29/23 19:37 Description of Symptoms (Recalled from Triage Doc. by RN): PATIENT C/O SORE THROAT, CONGESTION, AND FEVER THAT STARTED THIS MORNING HEENT Symptoms (Recalled from RN notes): Yes Resp Symptoms (Recalled from RN notes): No Skin Symptoms (Recalled from RN notes): No MS Symptoms (Recalled from RN notes): No Functional Status (Recalled from RN notes): WNL History of Present Illness Provider Complaint: Patient states that child recently had Parainfluenza and today she started with sore throat, nasal congestion and fever States that she wasnt sure if she may have strep throat or have the virus like her child wanted to get a strep test and URP child is scheduled for surgery soon and she needs to know if she has a virus Related Data Previous Rx's Medication Instructions Recorded escitalopram oxalate 10 mg tablet 10 mg PO DAILY #30 tabs 05/04/22 (Lexapro) norgestimate 0.25 mg-ethinyl 1 tab PO DAILY #28 tabs 07/01/22 estradiol 35 mcg tablet (Sprintec (28)) azithromycin 250 mg tablet See Rx Instructions PO .COMPLEX 5 04/12/23 (Zithromax Z-Felipe) days #6 tabs guaifenesin 600 mg tablet, 1,200 mg (2 x 600 mg) PO BID PRN 04/12/23 extended release 12 hr (Mucinex) cough #20 tabs methylprednisolone 4 mg tablets in See Rx Instructions .Route 04/12/23 a dose pack (Medrol (Felipe)) .COMPLEX 6 days #21 tabs Allergies Allergy/AdvReac Type Severity Reaction Status Date / Time amoxicillin [From AUGMENTIN] Allergy Unknown Verified 09/10/22 14:19 clavulanic acid Allergy Unknown Verified 09/10/22 14:19 [From AUGMENTIN] Worker's Comp Is this a Worker's Comp case?: No [facility] Disclaimer: The information contained in this section may have been updated after the patient was seen, as this information can be updated by other users. Medical History Asthma History of Surgical History History of surgery on arm Family History Other Diabetes Stroke Social History Smoking Status: Never smoker alcohol intake: never substance use type: denies use current occupational status: employed Travel in the last 8 weeks: None ROS Obtained: Yes All systems reviewed & no additional complaints except as documented and Yes Systems reviewed as appropriate & no additional complaints except as documented Constitutional Constitutional: Reports system reviewed and no additional complaints, except as documented, Reports as per HPI, Reports body ache, Reports chills and Reports fever(s) ENT Ears, Nose, Mouth, and Throat: Reports system reviewed and no additional complaints, except as documented, Reports as per HPI, Reports nasal congestion and Reports sore throat Cardiovascular Cardiovascular: Reports system reviewed and no additional complaints, except as documented and Reports as per HPI Respiratory Respiratory: Reports system reviewed and no additional complaints, except as documented and Reports as per HPI Gastrointestinal Gastrointestingal: Reports system reviewed and no additional complaints, except as documented and as per HPI Physical Exam General General appearance: alert and in no apparent distress ENT ENT exam: Present mucous membranes moist Expanded ENT Exam Nose exam: Absent sinus tenderness Throat exam: Present tonsillar erythema Respiratory Respiratory exam: Present normal lung sounds bilaterally; Absent respiratory distress or wheezes Cardiovascular Cardiovascular exam: Present regular rate, normal rhythm and normal heart sounds Abdominal Exam Abdominal exam: Present soft and normal bowel sounds; Absent distention or tenderness Neurological Exam Neurological exam: Present alert, oriented X3 and normal gait Medical Decision Making Bart Inquiry Pt receiving controlled substance: No Bart was queried for this patient: No Vital Signs: 10/29/23 19:15 Temperature 99.0 F Temperature Source Oral Pulse Rate [Left Brachial] 86 Respiratory Rate 20 Blood Pressure [Left Arm] 151/86 H Blood Pressure Mean [Left Arm] 107 Blood Pressure Source [Left Arm] Automatic Cuff Blood Pressure Position [Left Arm] Sitting 02 Sat by Pulse Oximetry 98 Oxygen Delivery Method Room Air Lab Data Lab results reviewed: Yes I reviewed the patient's lab results. Lab Results 10/29/23 19:31: Strep Scn Rapid Clinic Negative Orders (Tests/Meds): ORDERS Category Date Time Status Full Resp Panel w/COVID ([facility]) Routine Lab 10/29/23 19:30 Ordered Strep Screen Confirmation Stat Micro 10/29/23 19:31 Received
[2023-10-29 19:41] VITALS: BP 151/86; PULSE 86; RESP 20; TEMP 37.2; O2SAT 98
[2023-10-29 19:56] LABS: Adenovirus,PCR Not Detected (NotDetected); Bordetella Pertussis Not Detected (NotDetected); Chlamydophila Pneumoniae, PCR Not Detected (NotDetected); Coronavirus 19, PCR Not Detected (NotDetected); Coronavirus 229E Not Detected (NotDetected); Coronavirus NL63 Not Detected (NotDetected); Coronavirus OC43 Not Detected (NotDetected); Coronovirus HKU1,PCR Not Detected (NotDetected); Human Metapneumovirus Not Detected (NotDetected); Influenza A, PCR Not Detected (NotDetected); Influenza AH1, 2009 Not Detected (NotDetected); Influenza AH1, PCR Not Detected (NotDetected); Influenza AH3,PCR Not Detected (NotDetected); Influenza B, PCR Not Detected (NotDetected); Mycoplasma Pneumoniae, PCR Not Detected (NotDetected); Parainfluenza 1, PCR Not Detected (NotDetected); Parainfluenza 2, PCR Not Detected (NotDetected); Parainfluenza 3, PCR Not Detected (NotDetected); Parainfluenza 4, PCR Not Detected (NotDetected); Respiratory Syncytial Virus Not Detected (NotDetected); Rhinovirus/Enterovirus Not Detected (NotDetected)
== END 2023-10-29 19:48 | disposition home or self-care (01) ==
PROVIDERS: Emergency Provider Nurse Practitioner; PCP Family Medicine
DX: R07.0 Pain in throat; R50.9 Fever, unspecified; R09.81 Nasal congestion; B34.9 Viral infection, unspecified
CPT/HCPCS: 87581; 87632; 87635; 87798; 87880; 99212; 99213; G0463

== ENCOUNTER 2023-11-07 15:33 | Outpatient (CLI) | payer MEDICAID, SELFPAY ==
--- NOTE | 2023-11-07 15:37 | XR_ITS ---
FINAL REPORT CLINICAL HISTORY: low back pain COMPARISON: None FINDINGS: 3 views of the lumbar spine were obtained. There is no evidence of fracture. There is no malalignment. The vertebrae are normal in height. There are mild hypertrophic changes at T11-12. No paraspinous soft tissue abnormalities identified. IMPRESSION: No acute bony abnormality. Reviewed, Interpreted and Dictated by Heri Romero MD Transcribed by Mary Juarez Authenticated and [facility]
--- NOTE | 2023-11-07 15:37 | XR_ITS ---
FINAL REPORT CLINICAL HISTORY: neck pain COMPARISON: None FINDINGS: Three views of the cervical spine were obtained. There is no fracture present. There is no malalignment. The disc spaces are preserved. Vertebrae are normal in height. IMPRESSION: No acute process. Reviewed, Interpreted and Dictated by Heri Romero MD Transcribed by Mary Juarez Authenticated and [facility]
--- NOTE | 2023-11-07 15:37 | XR_ITS ---
FINAL REPORT CLINICAL HISTORY: left hip pain COMPARISON: None FINDINGS: LEFT HIP: Two views of the left hip demonstrate no acute fracture or dislocation. The joint spaces appear normal. The visualized bony structures are well aligned. No soft tissue abnormality is seen. IMPRESSION: No acute bony abnormality. Reviewed, Interpreted and Dictated by Heri Romero MD Transcribed by Mary Juarez Authenticated and [facility]
--- NOTE | 2023-11-07 15:37 | XR_ITS ---
FINAL REPORT CLINICAL HISTORY: mid back pain COMPARISON: None FINDINGS: Two views of the thoracic spine were obtained. There is no fracture present. There is no malalignment. There are no significant degenerative changes. There is thoracic scoliosis convex to the left measuring approximately 15 degrees. IMPRESSION: No acute process. Reviewed, Interpreted and Dictated by Heri Romero MD Transcribed by Mary Juarez Authenticated and [facility]
--- NOTE | 2023-11-07 15:37 | XR_ITS ---
FINAL REPORT CLINICAL HISTORY: right hip pain COMPARISON: None FINDINGS: RIGHT HIP Two views of the right hip and an AP view of the pelvis demonstrate no acute fracture or dislocation. The joint spaces appear normal. The visualized bony structures are well aligned. No soft tissue abnormality is seen. IMPRESSION: No acute bony abnormality. Reviewed, Interpreted and Dictated by Heri Romero MD Transcribed by Mary Juraez Authenticated and [facility]
== END 2023-11-07 23:59 | disposition home or self-care (01) ==
LOC: RAD 15:33
PROVIDERS: PCP Nurse Practitioner Family; Visit Provider Nurse Practitioner Family
DX: M54.2 Cervicalgia (principal); M54.9 Dorsalgia, unspecified; M54.6 Pain in thoracic spine; M54.50 Low back pain, unspecified; G89.29 Other chronic pain; M25.551 Pain in right hip; M25.552 Pain in left hip
CPT/HCPCS: 72040; 72070; 72100; 73502

== ENCOUNTER 2023-11-08 08:40 | Outpatient (CLI) | payer MEDICAID, SELFPAY ==
[2023-11-08 08:59] LABS: Microscopic, Urine URINE MICROSCOPIC (MICROSCOPIC)
[2023-11-08 09:21] LABS: Appearance,Urine CLEAR (Clear); Blood, Urine Negative (Negative); Color,Urine YELLOW (Yellow); Glucose,Urine (UA) Negative (Negative); Ketones,Urine Negative (Negative); Leukocyte Esterase,Urine 1+ (Negative); Nitrate,Urine Negative (Negative); Protein,Urine TRACE (Negative); Specific Gravity, Urine >= 1.030 (1.005-1.030); Urobilinogen,Urine 0.2 EU/dl (0.2)
[2023-11-08 09:29] LABS: Basophils # 0.1 K/mm3 (0-0.2); Basophils % 0.5 % (0.1-2.0); Eosinophils % 0.3 % (0.1-12.0); Hematocrit 41.4 % (37.0-47.0); Hemoglobin 13.9 g/dL (12.2-16.2); Lymphocytes # 1.8 K/mm3 (0.7-4.5); Lymphocytes % 14.8 % (10-50); Mean Corpuscular HGB Conc 33.6 g/dL (31.8-35.4); Mean Corpuscular Hemoglobin 30.5 pg (27.0-31.2); Mean Corpuscular Volume 90.7 fl (81-99); Mean Platelet Volume 8.5 fl (7.4-10.4); Monocytes # 0.4 K/mm3 (0.1-1.0); Monocytes % 2.9 % (1.7-9.3); Neutrophils # 10.1 K/mm3 (1.8-7.8); Neutrophils % 81.5 % (37.0-80.0); Platelet Count 223 K/mm3 (142-424); Red Blood Count 4.56 M/mm3 (4.20-5.40); White Blood Count 12.4 K/mm3 (4.8-10.8)
[2023-11-08 09:44] LABS: Bilirubin,Urine 1+ (Negative)
[2023-11-08 10:20] LABS: Alanine Aminotransferase 27 U/L (12-78); Albumin Level 4.2 g/dl (3.5-5.0); Albumin/Globulin Ratio 1.8 (1.1-1.8); Alkaline Phosphatase 50 U/L (38-126); Anion Gap 13.1 mEq/L (5-15); Aspartate Amino Transferase 21 U/L (14-36); Bilirubin,Total 0.5 mg/dl (0.2-1.3); Blood Urea Nitrogen 9 mg/dl (7-17); Calcium 9.7 mg/dl (8.4-10.2); Carbon Dioxide 25 mmol/L (22.0-30.0); Chloride 107 mmol/L (98-107); Chol/HDL Ratio 4.7 (1-3.5); Cholesterol 200 mg/dl (140-200); Estimated Glomerular Filt Rate 97 ml/min (>60); GFR (African American) 117 ML/MIN (>60); Globulin 2.4 g/dL (1.3-3.2); Glucose 96 mg/dl (74-100); HDL Cholesterol 43 mg/dl (40-60); Potassium 4.1 mmoL/L (3.5-5.1); Sodium 141 mmol/L (136-145); Total Protein,Serum 6.6 g/dl (6.3-8.2); Triglycerides 78 mg/dl (30-150); VLDL Cholesterol 16 mg/dL (0-40)
[2023-11-08 10:31] LABS: Direct LDL Cholesterol 133.79 mg/dL (100-129)
[2023-11-08 10:36] LABS: Bacteria,Urine 3+ /lpf
[2023-11-08 10:39] LABS: Free T4 (Free Thyroxine) 0.78 ng/dl (0.78-2.19)
[2023-11-08 10:41] LABS: 25-OH Vitamin D, Total 27.7 ng/mL (30-100)
[2023-11-08 10:51] LABS: Thyroid Stimulating Hormone 0.82 uIU/mL (0.465-4.68)
[2023-11-08 11:10] LABS: Vitamin B12 295 pg/mL (239-931)
[2023-11-08 11:35] LABS: Hemoglobin A1C 4.6 % (4.0-6.0)
[2023-11-09 08:19] LABS: HBsAg Screen Negative (Negative); HCV Ab Non Reactive (Non Reactive); Hep A Ab, IGM Negative (Negative); Hep B Core Ab, IgM Negative (Negative)
[2023-11-09 11:14] LABS: HIV Screen 4th Generation wRfx Non Reactive (Non Reactive)
[2023-11-09 12:59] LABS: Rapid Plasma Reagin Ab Titer Non Reactive titer (NonRea<1:1)
== END 2023-11-08 23:59 | disposition home or self-care (01) ==
LOC: LAB 08:40
PROVIDERS: PCP Nurse Practitioner Family; Visit Provider Nurse Practitioner Family
DX: R53.83 Other fatigue (principal); Z13.1 Encounter for screening for diabetes mellitus; Z11.3 Encounter for screening for infections with a predominantly sexual mode of transmission; E66.9 Obesity, unspecified; Z13.220 Encounter for screening for lipoid disorders; I10 Essential (primary) hypertension; E55.9 Vitamin D deficiency, unspecified; Z68.37 Body mass index [BMI] 37.0-37.9, adult; Z01.419 Encounter for gynecological examination (general) (routine) without abnormal findings; Z11.4 Encounter for screening for human immunodeficiency virus [HIV]
CPT/HCPCS: 36415; 80053; 80061; 80074; 81001; 82306; 82607; 83036; 84439; 84443; 85025; 86593; 86703; 87086; G0432

== ENCOUNTER 2023-12-12 14:53 | Outpatient (CLI) | payer MEDICAID, SELFPAY ==
--- NOTE | 2023-12-12 14:53 | US_ITS ---
PROCEDURE: US TRANSVAGINAL CLINICAL INDICATION: aub, pelvic pain COMPARISON: No exams were available for comparison FINDINGS: Transvaginal sonographic images of the pelvis were obtained. UTERUS: 10.0cm x 6.4cmx 4.8 cm anteverted with a combined endometrial thickness of 11.5mm. There are several nabothian cysts in the cervix. The largest nabothian cyst measures 1.4 cm and has a ground-glass appearance of the fluid. LEFT OVARY: 3.2cmx2.7 cmx2.3cm with a volume of 10.5ml. There are several small follicles. There is a dominant follicle measuring 2.2 cm x 1.9 cm x 1.5 cm. RIGHT OVARY: 2.1cmx 2.7 cmx3.7 cm with a volume of 11ml. There is a corpus luteum measuring 1.7 cm x 1.0 cm x 1.5 cm. There are 2 other follicles with the largest measuring 1.4 cm. Both ovaries are seen and appear normal. Doppler flow to both ovaries are seen. There is no fluid in the cul-de-sac. IMPRESSION: 1. Anteverted, bulky uterus. The endometrium appears normal and measures 11.5 mm. 2. There is a 1.4 cm nabothian cyst with a ground-glass appearance. 3. Both ovaries are seen and appear normal. 4. There is a dominant follicle on the left ovary measuring 2.2 cm. There are several other small follicles. 5. The right ovary has what appears to be a corpus luteum measuring 1.7 cm. There are several other small follicles. 6. No fluid in the cul-de-sac. Dictated by: Alverto Mast MD 12/12/2023 18:22 Alverto Mast MD in [place] 12/12/2023 18:22
== END 2023-12-12 23:59 | disposition home or self-care (01) ==
LOC: RAD 14:53
PROVIDERS: PCP Nurse Practitioner Family; Visit Provider Obstetrics & Gynecology
DX: N93.9 Abnormal uterine and vaginal bleeding, unspecified (principal); R10.2 Pelvic and perineal pain
CPT/HCPCS: 76830

== ENCOUNTER 2023-12-16 14:51 | Outpatient (RCR) | payer MEDICAID, SELFPAY ==
--- NOTE | 2023-12-19 18:04 | HMH.PTOPEV ---
PT Outpatient Evaluation Rehab PT Outpatient Evaluation Start: 12/19/23 17:41 Freq: Status: Active Protocol: Document 12/16/23 15:00 KEVIN (Rec: 12/19/23 18:04 KEVIN [id number]) E-signed By David Bearden, PT Outpatient Therapy Subjective History Subjective History Patient is a 33 year old female presenting to outpatient PT with reports of chronic CS/TS/LS pain with intermittent LLE radicular symptoms starting approx 5 years ago. Referral indicates need for breast reduction surgery/breast hypertrophy. LS=CS>TS. Most recent imaging negative for any bony malalignment or acute process. No other comorbidities to report. New diagnosis of cancer in past 12 No months? Chief Complaint Pain,Spasms,Stiff,Paresthesia Symptom Type Sharp,Tingling Symptoms Relieved By Rest/Positioning,Heat,Ice,OTC Meds,Prescription Meds Symptoms Aggravated By Standing,Physical Activity, Walking,Lifting Prior Functional Limitations Reaching,Lifting,Housework, Walking,Bending/Stooping Current Functional Limitations Reaching,Lifting,Housework, Standing,Walking,Bending/ Stooping Symptom Description Constant but Variable Level of pain today (0-10) 4 Pain scale - at its best (0-10) 2 Pain scale - at its worst (0-10) 9 Cervical Eval Palpation Cervical Muscles R Upper Trapezius,L Upper Trapezius Cervical/Thoracic Palpation Findings Tenderness,Spasm Posture Head/C-Spine Posture Sitting Position Extended Head/C-Spine Posture Standing Position Extended Flexibility Deficits Upper Trapezius Muscle Length (R) Moderate Tightness,(L) Moderate Tightness Pectoralis Minor Muscle Length (R) Moderate Tightness,(L) Moderate Tightness Passive Joint Mobility Cervical PIVM Dec: R OA L OA R AA L AA R C2/3 L C2/3 R C3/4 L C3/4 R C4/5 L C4/5 R C5/6 L C5/6 R C6/7 L C6/7 R C7/T1 L C7/T1 AROM Cervical Spine Extension Active Range of 25 Motion (degrees) Cervical Spine Flexion Active Range of 48 Motion (degrees) Cervical Spine Right Lateral Flexion 37 Active Range of Motion (degrees) Cervical Spine Left Lateral Flexion 35 Active Range of Motion (degrees) Cervical Spine Right Rotation Active 41 Range of Motion (degrees) Cervical Spine Left Rotation Active 38 Range of Motion (degrees) MMT Bilateral Deltoid (C5) 5 Normal Biceps Brachii Strength Grade 5 Normal Wrist Extension Strength Grade 5 Normal Triceps Brachii Strength Grade 5 Normal Wrist Flexion Strength Grade 5 Normal Extensor Pollicis Longus Strength Grade 5 Normal Finger Abduction Strength Grade 5 Normal Special Test C-Spine Foraminal Compression (Spurling) Negative Left,Negative Right Test C-Spine Foraminal Distraction Test Positive Lumbopelvic Eval Posture Thoracic Spine Posture Standing Position Increased Kyphosis Lumbar Spine Posture Standing Position Increased Lordosis Assistive device Assistive Devices None / NA Palapation tenderness left Lumbar/Sacral Palpation Findings Tenderness Lumbar/Sacral Palpation Overall Comment L PSIS 3/4 Accessory Movement L5 bilateral S1 bilateral Range of Motion Lumbar Spine Active Flexion Range of 50 Motion (degrees) Lumbar Spine Active Extension Range of 15 Motion (degrees) Left Lumbar Spine Lateral Flexion Active 12 Range of Motion (degrees) Right Lumbar Spine Lateral Flexion 15 Active Range of Motion (degrees) Lumbar Spine ROM Limitations Soft Tissue Tightness,Bony Restriction Manual Muscle Test Bilateral Knee Extension Strength Grade 5 Normal Knee Flexion Strength Grade 5 Normal Hip Flexion Strength Grade 5 Normal Extensor Hallucis Longus Strength Grade 5 Normal Ankle Dorsiflexion Strength Grade 5 Normal Gastronemius/Soleus Strength Grade 5 Normal Altered Sensation Left LE Dermatome Level L5,S1 Comment INT NT Special Tests Hip Kel (KEILA) Test Positive Left,Positive Right Hip Nicole Test Positive Left,Positive Right Hip Piriformis Test Positive Left,Positive Right Sciatic Nerve Tension Test Positive Left Jayce Test Positive Sacroiliac Joint Compression Test Negative Left,Negative Right Sacroiliac Joint Distraction Test Negative Left,Negative Right Lumbar Long [place] Distraction Test/Manual Positive Traction Oswestry Index Section 1 Pain Intensity The pain comes and goes and is severe Section 2 Personal Care (Washing,Dresing) my way of washing or dressing even though it causes some pain Section 3 Lifting I can lift heavy weights, but it gives me extra pain Section 4 Walking I have some pain when walking but it does not increase with distance Section 5 Sitting Pain prevents me from sitting for more than 1/2 hour Section 6 Standing I cannot stand more than 10 minutes without increasing pain Section 7 Sleeping I get pain in bed, but it does not prevent me from sleeping well Section 8 Social Life My social life is normal and gives me no extra pain Section 9 Traveling I get no pain when traveling Section 10 Changing Degreee of Pain My pain is neither getting better or worse Score and Risk Level Oswestry Sc 18 Oswestry Risk Level Moderate Disability Outpatient Therapy Assessment Impairments Problems/Impairmments Palpation Tenderness,Impaired Range of Motion,Impaired Walking,Impaired Standing, Impaired Sitting,Impaired Lifting,Impaired Household Care,Impaired Recreational Activities,Impaired Work Activities,Subjective C/O Pain Prognosis Rehab Potential Good Clinical Impression Consistent with Diagnosis Yes Short Term Goals Number of Weeks 2 Decrease Subjective C/O Pain Yes: 10 at worst Patient to be Ind w/ HEP Yes [facility]ci Goals Number of Weeks 4-6 Decreased Palpation Tenderness Yes: 06/23 grossly Increase Range of Motion Yes: WNL CS/LS Increase Ability to Walk Yes: 30 min without difficulty Increase Ability to Stand Yes: Increase Ability to Sit Yes: Restore Ability to Lift Objects to Yes: 10 lbs without difficulty Shoulder Level Restore Ability to Lift Objects Overhead Yes: Improve Ability For Household Care Yes Improve Tolerance to Work Activities Yes Decrease Subjective C/O Pain Yes: 07/30 at worst Outpatient Therapy Plan of Care Treatment Plan May Include Therapeutic Exercise Including Home Yes Exercise Program Manual Therapy Techniques Yes Neuromuscular Re-education Yes Therapeutic Activities to Return to Yes Previous Functional/Work Level Gait Training Yes ADL/Self Care Education Yes Mechanical Traction Yes Dry Needling Yes Thermal Modalities Yes Electrical Stimulation Yes Ultrasound/Phonophoresis Yes Iontophoresis Yes Orthotics/Bracing/Splinting Yes Eval/Re-Eval Yes Aquatic Therapy Yes Frequency Times per week 2 Duration Number of Weeks 4-6 Addendums This patient is a candidate for social No or vocational rehab? Patient/Guardian verbally acknowledges Yes understanding of treatment program and consents to further treatment? Patient/Guardian verbally acknowledges Yes understanding of diagnosis, prognosis and goals for treatment? Eval Complexity PT Charges 65964 - Moderate Complexity Shoulder/Elbow Eval Shoulder Objective Measurements Elbow Objective Measurements PHYSICIAN CERTIFICATION: I certify the specified therapy services for Bernadette Soto are required, authorized, and reviewed every 30 days.
== END 2023-12-16 16:00 | disposition home or self-care (01) ==
LOC: PT 14:51
PROVIDERS: Visit Provider Nurse Practitioner Family
DX: M54.50 Low back pain, unspecified (principal); M54.9 Dorsalgia, unspecified; M54.2 Cervicalgia; N62 Hypertrophy of breast
CPT/HCPCS: 97163

== ENCOUNTER 2024-03-02 14:13 | Emergency (ER) | payer MEDICAID, SELFPAY ==
[2024-03-02 14:48] VITALS: BP 141/67; PULSE 98; RESP 20; TEMP 37; O2SAT 98; BMI 37.0
[2024-03-02 14:51] LABS: Apearance,Urine Clear (Clear); Color,Urine Yellow (Yellow); PH,Urine 5.5 (5.0-8.5)
--- NOTE | 2024-03-02 14:51 | ED_ITS ---
Discharge Plan Disposition Patient Disposition: Home, Self-Care Condition: Good Prescriptions Prescriptions: New cefdinir 300 mg capsule 300 mg PO BID Qty: 20 0RF pseudoephedrine HCl [Sudafed 12 Hour] 120 mg tablet extended release 120 mg PO Q12H PRN (Reason: nasal congestion) Qty: 20 0RF Referrals Follow up/Referrals: Lesli Eugene APRN [Primary Care Provider] - See instructions Activity Restrictions/Add. Instructions Additional Instructions/Restrictions: *Increase fluids. Water not Soda or Tea *Start antibiotic immediately and be sure to take as ordered for the FULL length of time although you should start to see improvement over the next 48 hours *Be SURE to follow up anytime for new or worsening symptoms with your family doctor. AND in 48 hours for urine culture results with your family doctor, if you do not have a doctor then you may call back to the [facility] for urine culture results and further treatment. We do recommend that you choose and establish care with a Primary Care Physician. ?AND follow up with them ?in 10-14 days to repeat UA to ensure infection is resolved and blood no longer present *Be sure to let your PCP know that we sent urine cultures from the [facility] so they can follow up to ensure that you area the on the correct antibiotic Call your doctor office and make appointment for 48 hours (2 days from today) ?to follow up and get the results of your urine culture and further treatment Clinical Impressions Clinical Impression: Sinusitis Instructions Patient Instructions: Urinary Tract Infection, DI for Sinusitis, DI for Urinary Tract Infection (UTI) Print Language Print Language: Urdu Discharge ED Provider: Neda Whatley [facility] HPI General Stated complaint: cough, congestion, lower back pain, Mode of Arrival: Ambulatory Source of Information: Patient Time Seen by Provider: 03/02/24 14:51 Description of Symptoms (Recalled from Triage Doc. by RN): cough, congestion, lower back pain (pt states she may have kidney infection) HEENT Symptoms (Recalled from RN notes): No Resp Symptoms (Recalled from RN notes): Yes (cough,congestion') Skin Symptoms (Recalled from RN notes): No MS Symptoms (Recalled from RN notes): No Functional Status (Recalled from RN notes): wnl History of Present Illness Provider Complaint: Patient states she has been having sinus congestion and pressure for about a week, having low back ache and urinary frequency and urgency States feels like she may have a UTI also Related Data Previous Rx's ?Medication ?Instructions ?Recorded cefdinir 300 mg capsule 300 mg PO BID #20 caps 03/02/24 pseudoephedrine HCl 120 mg 120 mg PO Q12H PRN nasal 03/02/24 tablet,extended release (Sudafed congestion #20 tabs 12 Hour) Allergies Allergy/AdvReac Type Severity Reaction Status Date / Time amoxicillin [From AUGMENTIN] Allergy Unknown Verified 11/30/23 09:10 clavulanic acid Allergy Unknown Verified 11/30/23 09:10 [From AUGMENTIN] Worker's Comp Is this a Worker's Comp case?: No [facility] Disclaimer: The information contained in this section may have been updated after the patient was seen, as this information can be updated by other users. Medical History Problematic vaginal discharge Fever depression Sinusitis Bronchitis Viral syndrome History of Asthma Surgical History History of surgery on arm Family History Other Diabetes Stroke Social History Smoking Status: Never smoker alcohol intake: never substance use type: denies use current occupational status: employed Travel in the last 8 weeks: None ROS Obtained: Yes All systems reviewed & no additional complaints except as documented and Yes Systems reviewed as appropriate & no additional complaints except as documented Constitutional Constitutional: Reports system reviewed and no additional complaints, except as documented and Reports as per HPI ENT Ears, Nose, Mouth, and Throat: Reports system reviewed and no additional complaints, except as documented, Reports as per HPI, Reports sinus pain and Reports sinus pressure Cardiovascular Cardiovascular: Reports system reviewed and no additional complaints, except as documented and Reports as per HPI Respiratory Respiratory: Reports system reviewed and no additional complaints, except as documented and Reports as per HPI Gastrointestinal Gastrointestingal: Reports system reviewed and no additional complaints, except as documented and as per HPI; Denies abdominal pain Genitourinary Female Genitourinary: Reports system reviewed and no additional complaints, except as documented, Reports as per HPI, Reports flank pain, Reports urinary frequency and Reports urinary urgency Musculoskeletal Musculoskeletal: Reports system reviewed and no additional complaints, except as documented and Reports as per HPI Integumentary/Breasts Skin/Breast: Reports system reviewed and no additional complaints, except as documented and Reports as per HPI Physical Exam General General appearance: alert and in no apparent distress ENT ENT exam: Present mucous membranes moist Expanded ENT Exam Nose exam: Present sinus tenderness Throat exam: Present other (PND noted) Respiratory Respiratory exam: Present normal lung sounds bilaterally; Absent respiratory distress or wheezes Cardiovascular Cardiovascular exam: Present regular rate, normal rhythm and normal heart sounds Abdominal Exam Abdominal exam: Present soft and normal bowel sounds; Absent distention or tenderness Neurological Exam Neurological exam: Present alert, oriented X3 and normal gait Medical Decision Making Bart Inquiry Pt receiving controlled substance: No Bart was queried for this patient: No Vital Signs: 03/02/24 14:48 Temperature 98.6 F Temperature Source Oral Pulse Rate [Left Brachial] 98 H Respiratory Rate 20 Blood Pressure [Left Arm] 141/67 H Blood Pressure Mean [Left Arm] 91 02 Sat by Pulse Oximetry 98 Lab Data Lab results reviewed: Yes I reviewed the patient's lab results. Orders (Tests/Meds): ORDERS Category Date Time Status Urine Culture Stat Micro 03/02/24 14:49 Ordered Medical Decision Narrative: Patient denies chance of Patient is allergic to Augmentin but states she has taken Cefdnir in the past without complications or reactions
[2024-03-02 14:52] LABS: Bilirubin,Urine 1+ (Negative); Blood, Urine Negative (Negative); Glucose,Urine (UA) Negative (Negative); Ketones,Urine Negative (Negative); Protein,Urine Trace (Negative); UTC Leukocyte Esterase,Urine Trace (Negative); UTC Nitrate,Urine Negative (Negative); Urobilinogen,Urine 0.2 EU/dl (0.2)
[2024-03-02 15:22] VITALS: BP 141/67; PULSE 98; RESP 20; TEMP 37
== END 2024-03-02 15:23 | disposition home or self-care (01) ==
PROVIDERS: Emergency Provider Nurse Practitioner; PCP Nurse Practitioner Family
DX: N39.0 Urinary tract infection, site not specified (principal); B96.89 Other specified bacterial agents as the cause of diseases classified elsewhere; R35.0 Frequency of micturition; R39.15 Urgency of urination; J01.90 Acute sinusitis, unspecified
CPT/HCPCS: 81003; 87086; 99212; 99214; G0463

== ENCOUNTER 2024-07-04 13:44 | Outpatient (CLI) | payer MEDICAID, SELFPAY ==
[2024-07-04 14:48] LABS: HCG,Quantitative 19 mIU/ml (0-5.42)
[2024-07-05 08:17] LABS: Progesterone 10.3 ng/mL (.)
== END 2024-07-04 23:59 | disposition home or self-care (01) ==
PROVIDERS: PCP Nurse Practitioner Family; Visit Provider Obstetrics & Gynecology
DX: Z34.01 Encounter for supervision of normal first pregnancy, first trimester (principal)
CPT/HCPCS: 36415; 84144; 84702

== ENCOUNTER 2024-07-06 07:14 | Outpatient (CLI) | payer MEDICAID, SELFPAY ==
[2024-07-06 08:21] LABS: HCG,Quantitative 49 mIU/ml (0-5.42)
== END 2024-07-06 23:59 | disposition home or self-care (01) ==
PROVIDERS: PCP Nurse Practitioner Family; Visit Provider Obstetrics & Gynecology
DX: N93.9 Abnormal uterine and vaginal bleeding, unspecified (principal)
CPT/HCPCS: 36415; 84702

== ENCOUNTER 2024-07-12 07:02 | Outpatient (CLI) | payer MEDICAID, SELFPAY ==
[2024-07-12 08:57] LABS: HCG,Quantitative 1129 mIU/ml (0-5.42)
== END 2024-07-12 23:59 | disposition home or self-care (01) ==
LOC: LAB 07:03
PROVIDERS: PCP Nurse Practitioner Family; Visit Provider Obstetrics & Gynecology
DX: N93.9 Abnormal uterine and vaginal bleeding, unspecified (principal)
CPT/HCPCS: 36415; 84702

== ENCOUNTER 2024-07-17 16:26 | Outpatient (CLI) | payer MEDICAID, SELFPAY | END 2024-07-17 23:59 | disposition home or self-care (01) | LOC: LAB.DROPOF 16:26 | PROVIDERS: PCP Obstetrics & Gynecology; Visit Provider Obstetrics & Gynecology | DX: Z34.01 Encounter for supervision of normal first pregnancy, first trimester (principal) | CPT/HCPCS: 87086 ==

== ENCOUNTER 2024-07-27 12:44 | Outpatient (CLI) | payer MEDICAID, SELFPAY ==
--- NOTE | 2024-07-27 12:45 | US_ITS ---
PROCEDURE: US OB <= 14 WEEKS FETUS CLINICAL INDICATION: Dates and Confirmation COMPARISON: No exams were available for comparison FINDINGS: Transvaginal sonographic images of the pelvis were obtained. From her last menstrual period she is 7weeks 0 days. An intrauterine gestational sac is present with a pole with a crown-rump length of 0.71cm This correlates to a gestational age of 7 weeks 0 days. AD 03/15/2025 heart tones are present with an FHR of 135bpm. Yolk sac is noted. The yolk sac measures 4.7mm. The gestational sac appears to be in the lower uterus. There is a 1.5 cm nabothian cyst in the cervix. The right ovary is seen and appears normal. There is a corpus luteum in the right ovary. There is a small amount of fluid around the right ovary. The left ovary is seen and appears normal. There is no fluid in the cul-de-sac. IMPRESSION: 1. Viable embryo within the uterine cavity with heart rate activity. 2. The embryo measures 7 weeks 0 days. AD will be 03/15/2025. 3. The gestational sac appears to be in the lower segment of the uterus. 4. Both ovaries are seen and appear normal. The right ovary has a corpus luteum and a small amount of fluid around the ovary.. 5. No fluid in the cul-de-sac. Dictated by: Alverto Mast MD 07/28/2024 10:08 Alverto Mast MD in [facility] 07/28/2024 10:08
== END 2024-07-27 23:59 | disposition home or self-care (01) ==
LOC: RAD 12:45
PROVIDERS: PCP Nurse Practitioner Family; Visit Provider Obstetrics & Gynecology
DX: Z36.87 Encounter for antenatal screening for uncertain dates (principal); Z3A.01 Less than 8 weeks gestation of pregnancy
CPT/HCPCS: 76801

== ENCOUNTER 2024-08-16 09:48 | Outpatient (CLI) | payer MEDICAID, SELFPAY ==
[2024-08-16 11:36] LABS: HIV Combo NEGATIVE (Negative)
[2024-08-16 12:08] LABS: Hepatitis C Ab Qual. W/ RFX NEGATIVE (Negative)
[2024-08-16 12:37] LABS: Basophils % 0.3 % (0.1-2.0); Eosinophils % 0.6 % (0.1-12.0); Hematocrit 36.3 % (37.0-47.0); Hemoglobin 12.3 g/dL (12.2-16.2); Lymphocytes # 1.3 K/mm3 (0.7-4.5); Lymphocytes % 19.6 % (10-50); Mean Corpuscular HGB Conc 33.9 g/dL (31.8-35.4); Mean Corpuscular Hemoglobin 30.3 pg (27.0-31.2); Mean Corpuscular Volume 89.4 fl (81-99); Mean Platelet Volume 11.3 fl (7.4-10.4); Monocytes # 0.3 K/mm3 (0.1-1.0); Neutrophils # 5.1 K/mm3 (1.8-7.8); Neutrophils % 74.9 % (37.0-80.0); Platelet Count 165 K/mm3 (142-424); Red Blood Count 4.06 M/mm3 (4.20-5.40); Red Cell Distribution Width 12.8 % (11.5-17.5); White Blood Count 6.8 K/mm3 (4.8-10.8)
[2024-08-17 08:18] LABS: Hepatitis B Surface Antigen Negative (Negative); Rubella Antibodies, IgG 1.07 index (Immune >0.99)
[2024-08-17 15:20] LABS: RPR W/RFX Titers Nonreactive (Nonreactive)
== END 2024-08-16 23:59 | disposition home or self-care (01) ==
LOC: LAB 09:49
PROVIDERS: PCP Nurse Practitioner Family; Visit Provider Obstetrics & Gynecology
DX: Z34.01 Encounter for supervision of normal first pregnancy, first trimester (principal)
CPT/HCPCS: 36415; 85025; 86592; 86762; 86803; 86850; 87340; 87389

== ENCOUNTER 2024-09-02 16:13 | Outpatient (CLI) | payer MEDICAID, SELFPAY ==
[2024-09-02 11:13] LABS: Coronavirus 19, PCR Not Detected (NotDetected); Human Rhinovirus Not Detected (NotDetected); Influenza A, PCR Not Detected (NotDetected); Influenza B, PCR Not Detected (NotDetected); Respiratory Syncytial Virus Not Detected (NotDetected)
== END 2024-09-02 23:59 | disposition home or self-care (01) ==
LOC: LAB.DROPOF 09-04 16:13
PROVIDERS: PCP Nurse Practitioner Family; Visit Provider Nurse Practitioner
DX: R05.9 Cough, unspecified (principal); R52 Pain, unspecified; R50.9 Fever, unspecified
CPT/HCPCS: 87631

== ENCOUNTER 2024-09-05 15:25 | Outpatient (CLI) | payer MEDICAID, SELFPAY ==
[2024-09-05 16:55] LABS: Adenovirus,PCR Not Detected (NotDetected); Bordetella Pertussis Not Detected (NotDetected); Chlamydophila Pneumoniae, PCR Not Detected (NotDetected); Coronavirus 19, PCR Not Detected (NotDetected); Coronavirus 229E Not Detected (NotDetected); Coronavirus NL63 Not Detected (NotDetected); Coronavirus OC43 Not Detected (NotDetected); Coronovirus HKU1,PCR Not Detected (NotDetected); Human Metapneumovirus Not Detected (NotDetected); Influenza A, PCR Not Detected (NotDetected); Influenza AH1, 2009 Not Detected (NotDetected); Influenza AH1, PCR Not Detected (NotDetected); Influenza AH3,PCR Not Detected (NotDetected); Influenza B, PCR Not Detected (NotDetected); Mycoplasma Pneumoniae, PCR Not Detected (NotDetected); Parainfluenza 1, PCR Not Detected (NotDetected); Parainfluenza 2, PCR Not Detected (NotDetected); Parainfluenza 3, PCR Not Detected (NotDetected); Parainfluenza 4, PCR Not Detected (NotDetected); Respiratory Syncytial Virus Not Detected (NotDetected); Rhinovirus/Enterovirus Not Detected (NotDetected)
== END 2024-09-05 23:59 | disposition home or self-care (01) ==
LOC: LAB.DROPOF 09-06 12:51
PROVIDERS: PCP Nurse Practitioner Family; Visit Provider Nurse Practitioner Family
DX: R50.9 Fever, unspecified (principal); Z3A.36 36 weeks gestation of pregnancy
CPT/HCPCS: 87633

== ENCOUNTER 2024-10-25 08:43 | Outpatient (CLI) | payer MEDICAID, SELFPAY ==
--- NOTE | 2024-10-25 09:00 | US_ITS ---
PROCEDURE: US OB /MATERNAL DETAIL CLINICAL INDICATION: Schedule 20 week anatomy scan in 2 weeks COMPARISON: US US OB <= 14 WEEKS FETUS from 07/27/2024 FINDINGS: Transabdominal sonographic images of the pelvis were obtained. From her established due date she is . Single viable intrauterine gestation. Cephalic position. Placenta: Posteriorplacenta grade 1. There is an average amount of fluid. The cervix appears satisfactory. Closed and measuring 4.54 cm in length. Complete survey performed and was unremarkable on the submitted images as in PACS. No discrete anomalies identified on survey imaging by technologist. Active fetus. Three-vessel cord with satisfactory umbilical cord insertion. Situs, aortic arch, appear normal. The rest of the heart was not visualized well. Survey of brain & ventricles Unremarkable. Cerebellum, thalamus, choroid plexus, cisterna magna appear normal. Face and neck survey unremarkable. Lips and nose appeared normal. Profile not visualized Diaphragm and chest views unremarkable. Abdomen: Both kidneys noted and unremarkable. Stomach and bladder noted and satisfactory. Spine: Survey of the spine satisfactory with no anomalies identified nor imaged. Cervical, thoracic, lower spine appear normal. Both arms and legs noted. Amniotic Fluid: Adequate. MVP 5.06 cm Measurements: Average ultrasound age 20weeks 4days. Estimated due date by ultrasound age 0903/10/2025. Estimated weight 374g BPD = 20weeks 1day HC = 20weeks 2days AC = 21weeks FL = 20weeks 5days Growth Percentile= 90 Heart Rate = 147bpm Cerebellum = 19weeks 3days Humerus = 20weeks 3days HC/AC is 1.11 FL/BPD is 0.73 FL/AC is 0.21 IMPRESSION: 1. Viable fetus in the cephalic presentation with a posterior placenta grade 1. 2. The fluid is within normal limits with an MVP 5.06 cm. 3. Anatomical scan appears normal. 4. cardiac exam and profile were not seen today due to position. Suggest repeat scan in 2-3 weeks. 5. biometry is consistent with the dates. Dictated by: Alverto Mast MD 10/26/2024 07:30 Alverto Mast MD in [facility] 10/26/2024 07:30
== END 2024-10-25 23:59 | disposition home or self-care (01) ==
LOC: RAD 08:44
PROVIDERS: PCP Nurse Practitioner Family; Visit Provider Obstetrics & Gynecology
DX: Z36.3 Encounter for antenatal screening for malformations (principal); Z3A.20 20 weeks gestation of pregnancy
CPT/HCPCS: 76811

== ENCOUNTER 2024-10-30 08:04 | Outpatient (CLI) | payer MEDICAID, SELFPAY ==
--- NOTE | 2024-10-30 08:30 | US_ITS ---
PROCEDURE: US OB FOLLOW UP CLINICAL INDICATION: cardiac views COMPARISON: US US OB /MATERNAL DETAIL from 10/25/2024 FINDINGS: Transabdominal sonographic images of the pelvis were obtained. The following parameters are obtained: From her established due date she is 20weeks 4days Viable fetus in the cephalic presentation with a posterior placenta grade 1. There appears to be complete placenta previa. The cervix measures 5.78 cm heart rate: 146bpm bpm. Amniotic fluid: MVP 3.96 cm No obvious anomalies evident. profile seen, nasion seen, stomach, bladder, kidneys, three-vessel cord, four chamber heart appear normal. heart: Three-vessel view, RVOT, LVOT, four-chamber heart appears normal. IMPRESSION: 1. Viable fetus in the cephalic presentation with a posterior placenta grade 1. There appears to be complete posterior previa. 2. The fluid is within normal limits with an MVP 3.96 cm. 3. Limited anatomical scan appears normal. The cardiac scan and profile are seen and appear normal today. 4. Suggest follow-up again at 28 weeks to look at the placenta previa. Would suggest transvaginal views at that time as well. Dictated by: Alverto Mast MD 10/30/2024 10:50 Alverto Mast MD in [place] 10/30/2024 10:50
== END 2024-10-30 23:59 | disposition home or self-care (01) ==
LOC: RAD 08:04
PROVIDERS: PCP Nurse Practitioner Family; Visit Provider Obstetrics & Gynecology
DX: O99.212 Obesity complicating pregnancy, second trimester (principal); E66.9 Obesity, unspecified; Z3A.20 20 weeks gestation of pregnancy
CPT/HCPCS: 76816

== ENCOUNTER 2024-11-08 13:19 | Outpatient (CLI) | payer MEDICAID, SELFPAY | END 2024-11-08 23:59 | disposition home or self-care (01) | LOC: LAB.DROPOF 21:47 | PROVIDERS: PCP Obstetrics & Gynecology; Visit Provider Obstetrics & Gynecology | DX: Z13.1 Encounter for screening for diabetes mellitus (principal) | CPT/HCPCS: 87086 ==

== ENCOUNTER 2024-11-19 09:57 | Outpatient (CLI) | payer MEDICAID, SELFPAY ==
[2024-11-19 10:08] VITALS: BMI 38.2
--- NOTE | 2024-11-19 10:09 | US_ITS ---
PROCEDURE: US OB TRANSVAGINAL CLINICAL INDICATION: vaginal bleeding COMPARISON: US US OB <= 14 WEEKS FETUS from 07/27/2024 US US OB /MATERNAL DETAIL from 10/25/2024 US US OB FOLLOW UP from 10/30/2024 US US OB FOLLOW UP from 11/19/2024 FINDINGS: Transvaginal sonographic images of the pelvis were obtained. The cervix measures 3.4-2.9 cm in length with no funneling. The posterior placenta has migrated away from the cervix and is now 5.78 cm from the internal cervical os. IMPRESSION: 1. Transvaginally the cervix measures 3.4 cm-3.90 cm. No funneling 2. There is a 1.6 cm nabothian cyst in the anterior cervix. 3. Transvaginally the placenta is posterior and measures 5.78 cm from the internal cervical os. There is no evidence of Vasa previa with Doppler. 4. The limited anatomical scan in growth was also performed today and is in a separate report. 5. The box puller said that there was no blood on the probe when she perform the examination. Dictated by: Alverto Mast MD 11/19/2024 12:12 Alverto Mast MD in [facility] 11/19/2024 12:12
[2024-11-19 10:10] VITALS: BP 137/80; PULSE 110; RESP 16; TEMP 36.8; O2SAT 97; BMI 38.2
--- NOTE | 2024-11-19 10:19 | US_ITS ---
PROCEDURE: US OB FOLLOW UP CLINICAL INDICATION: vaginal bleeding COMPARISON: No exams were available for comparison FINDINGS: Transabdominal sonographic images of the pelvis were obtained. The following parameters are obtained: From her established due date she is 23weeks 2days Viable fetus in the breech presentation with a posterior placenta grade 1. The cervix measures 3.98 cm. heart rate: 146bpm bpm. Estimated weight 571 grams, 1 lb 4 oz Average ultrasound age 23 weeks 5 days BPD: 24weeks 4days HC: 24weeks 2days AC: 23weeks 4days FL: 22weeks 3days HC/AC: 1.18 FL/BPD: 0.64 FL/AC: 0.21 Growth percentile: 38 Amniotic fluid: MVP 5.22 cm No obvious anomalies evident. profile seen, stomach, bladder, kidneys, three-vessel cord, four chamber heart appear normal. IMPRESSION: 1. Viable fetus in the breech presentation with a posterior placenta grade 1. 2. The fluid is within normal limits with an MVP 5.22 cm. 3. There has been good interval growth with the fetus currently 38th percentile. 4. Limited anatomical scan appears normal. 5. A separate exam transvaginally will look at the cervix low lying placenta. Dictated by: Alverto Mast MD 11/19/2024 12:07 Alverto Mast MD in [place] 11/19/2024 12:07
[2024-11-19 11:00] LABS: Microscopic, Urine URINE MICROSCOPIC (MICROSCOPIC)
[2024-11-19 11:04] LABS: Appearance,Urine CLEAR (Clear); Bilirubin,Urine Negative (Negative); Blood, Urine Negative (Negative); Color,Urine YELLOW (Yellow); Glucose,Urine (UA) Negative (Negative); Ketones,Urine Negative (Negative); Leukocyte Esterase,Urine TRACE (Negative); Nitrate,Urine Negative (Negative); PH,Urine 6.5 (5.0-8.5); Protein,Urine Negative (Negative)
[2024-11-19 11:15] LABS: Bacteria,Urine Trace /lpf; Mucus,Urine Trace /lpf; WBC,Urine Occasional #/hpf (0-3)
== END 2024-11-19 11:34 | disposition home or self-care (01) ==
LOC: OBOUT 09:59 → OB 10:01
PROVIDERS: PCP Nurse Practitioner Family; Visit Provider Nurse Practitioner Obstetrics & Gynecology
DX: O32.1XX0 Maternal care for breech presentation, not applicable or unspecified (principal); O44.52 Low lying placenta with hemorrhage, second trimester; O99.891 Other specified diseases and conditions complicating pregnancy; N88.8 Other specified noninflammatory disorders of cervix uteri; Z3A.23 23 weeks gestation of pregnancy
CPT/HCPCS: 76816; 76817; 81001; G0463

== ENCOUNTER 2024-11-27 13:25 | Outpatient (CLI) | payer MEDICAID, SELFPAY ==
--- OUTSIDE RECORDS SUMMARY | 2024-11-28 11:38 | XMS_ITS | Clinical Summary ---
Author Organization Healthcare Address [address] [place] [address] Care Team Providers Care Refrigeration Brazer/Solderer Name Role Phone Vladimir Baumann DO Primary Care Provider Immunizations Immunization Administration Dates Next Due Influenza, seasonal, injectable 04/17/2012 MMR 11/05/2012 Family History Medical History Relation Name Comments Diabetes type I Brother Breast cancer Maternal Grandmother Cervical cancer Mother Conversions - Other Mother Total Ab dominal Hysterectomy Spina bifida Other Parkinson Disease Paternal Grandfather Diabetes type I Sister Relation Name Status Comments Brother Maternal Grandmother Mother Other Paternal Grandfather Sister Social History Tobacco Use Types Packs/Day Years Used Date Smoking Tobacco: Never Alcohol Use Standard Drinks/Week Comments No 0 (1 standard drink = 0.6 oz pure alcohol) Alcoholic Drinks/day: Never Drank Alcohol Comments Unknown Sex and Gender Information Value Date Recorded Sex Assigned at Not on file Legal Sex Female 8:51 PM EDT Gender Identity Not on file Sexual Orientation Not on file Last Filed Vital Signs Vital Sign Reading Time Taken Comments Blood Pressure - - Pulse - - Temperature - - Respiratory Rate - - Oxygen Saturation - - Inhaled Oxygen Concentration - - Weight 92.4 kg (203 lb 12.7 oz) 013 11:42 AM EDT Height 177.8 cm (5' 10 ) 10/02/2012 1:11 PM EDT Body Mass Index 29.24 10/02/2012 1:11 PM EDT Plan of Treatment Health Maintenance Due Date Last Done Comments [facility]-Depression Screening 1991 [facility]-Infant/Child/Adol SDOH Screenings 1991 HPV Vaccines (3 - 3-dose series) 06/13/2007 02/14/2007, 12/12/2006 [facility]- SDOH Screenings 2009 [facility]-Adult SDOH Screenings 2009 [facility]-Pap Smear 2012 [facility]-Varicella Vaccines (1 of 2 - 13+ 2-dose series) 12/03/2012 [facility]-Cervical Cancer Screening 2021 [facility]-HPV/Cotest 2021 [id number] Vaccine (2 - 2023- season) 2024 05/11/2021 [facility]-Hepatitis B Vaccines (2 of 3 - 19+ 3-dose series) 02/29/2024 02/01/2024 [facility]-Influenza Vaccine (Season Ended) 2025 04/17/2012, 04/11/2007 [facility]-DTaP,Tdap,and Td Vaccines (2 - Td or Tdap) 05/15/2030 05/15/2020 [facility]-Zoster Vaccines (1 of 2) 2041 [facility]-Hepatitis A Vaccines Completed 007, 08/10/2006 [facility]-HIB Vaccines Aged Out No longer e ligible based on patient's age to complete this topic [facility]-IPV Vaccines Aged Out No longer e ligible based on patient's age to complete this topic [facility]-Pneumococcal Vaccine: Pediatrics (0 to 5 Years) and At-Risk Patients (6 to 49 Years) Aged Out No longer eligible b ased on patient's age to complete this topic [facility]-Rotavirus Vaccines Aged Out No lo nger eligible based on patient's age to complete this topic Insurance [employer] MEDICAID Care Teams Refrigeration Brazer/Solderer Relationship Specialty Start Date End Date Vladimir Baumann DO [address] [place] [address] PCP - General 10/31/20
== END 2024-11-27 23:59 | disposition home or self-care (01) ==
LOC: LAB.DROPOF 11-28 11:33
PROVIDERS: PCP Obstetrics & Gynecology; Visit Provider Obstetrics & Gynecology
DX: I10 Essential (primary) hypertension (principal)
CPT/HCPCS: 87086

== ENCOUNTER 2024-12-25 08:40 | Outpatient (CLI) | payer MEDICAID, SELFPAY ==
--- OUTSIDE RECORDS SUMMARY | 2024-12-25 08:42 | XMS_ITS | Clinical Summary ---
Author Organization Healthcare Address [address] [place] [address] Care Team Providers Care Brick Stacker Name Role Phone Vladimir Baumann DO Primary [...] 12/03/2012 [facility]-Cervical Cancer Screening 2021 [facility]-HPV/Cotest 2021 [id number] Vaccine (2 - 2023- season) 2024 05/11/2021 [facility]-Hepatitis B Vaccines (2 of 3 - 19+ 3-dose series) 02/29/2024 02/01/2024 [facility]-Influenza Vaccine (#1) 02/18/202504/17, 04/11/2007 [facility]-DTaP,Tdap,and Td Vaccines (2 - Td [...] age to complete this topic Insurance [employer] MEDICAID Care Teams Brick Stacker Relationship Specialty Start Date End Date Vladimir Baumann DO [address] [place] [address] PCP - General 10/31/20
[2024-12-25 09:00] LABS: Hematocrit 35.4 % (37.0-47.0); Hemoglobin 11.8 g/dL (12.2-16.2); Immature Granulocytes % 1.1 %; Mean Corpuscular HGB Conc 33.3 g/dL (31.8-35.4); Mean Corpuscular Hemoglobin 30.3 pg (27.0-31.2); Mean Corpuscular Volume 91.0 fl (81-99); Nucleated Red Blood Cells % 0 %; Platelet Count 129 K/mm3 (142-424); Red Blood Count 3.89 M/mm3 (4.20-5.40); Red Cell Distribution Width-SD 43.5 fL; White Blood Count 7.9 K/mm3 (4.8-10.8)
--- NOTE | 2024-12-25 14:30 | US_ITS ---
PROCEDURE: US TRANSVAGINAL CLINICAL INDICATION: 1990 COMPARISON: No exams were available for comparison FINDINGS: Transvaginal sonographic images of the cervix were obtained. The cervix measures 3.26 cm in length. Fetus is cephalic. The placenta appears to be at least 2 cm away from the internal os but no Doppler studies were done to see if there is any Vasa previa present. Would suggest repeat scan. IMPRESSION: 1. Fetus is seen in the cephalic presentation. 2. The cervix is measured at 3.26 in length. 3. The placenta seems to be at least 2 cm away from the Internal os but there were no Doppler studies performed to see if there was any vascular Vasa previa near the cervical os. Would suggest repeat scans to confirm this. Dictated by: Alverto Mast MD 12/25/2024 16:46 Alverto Mast MD in [place] 12/25/2024 16:46
--- NOTE | 2024-12-25 14:30 | US_ITS ---
PROCEDURE: US OB FOLLOW UP CLINICAL INDICATION: needs for placenta previa and wellbeing COMPARISON: US US OB <= 14 WEEKS FETUS from 07/27/2024 US OB /MATERNAL DETAIL from 10/25/2024 [facility] OB FOLLOW UP from 10/30/2024 US OB TRANSVAGINAL from 11/19/2024 [facility] OB FOLLOW UP from 11/19/2024 FINDINGS: Transabdominal sonographic images of the pelvis were obtained. The following parameters are obtained: From her established due date she is 28weeks 4days Viable fetus in the cephalic presentation with a posterior placenta grade 2. The cervix measures 3.12 cm heart rate: 149bpm bpm. BPD: 31weeks 2days, 97 percentile HC: 30weeks 6days, 84 percentile AC: 30weeks 3days, 88 percent FL: 27weeks 0 days, 5 percent HC/AC: 1.08 FL/BPD: 0.64 FL/AC: 0.19 Growth percentile: 67 Amniotic fluid index: 13.83cm, MVP 5.44 cm No obvious anomalies evident. profile seen, stomach, bladder, kidneys, three-vessel cord, four chamber heart appear normal. IMPRESSION: 1. Viable fetus in the cephalic presentation with a posterior placenta grade 2. 2. The fluid is within normal limits with an amniotic fluid index is 13.83 cm, MVP 5.44 cm. 3. There has been good interval growth with the fetus currently 67th percentile 4. Limited anatomical scan appears normal. 5. A separate transvaginal ultrasound of the cervix will be done today to look at the low lying placenta. Dictated by: Alverto Mast MD 12/25/2024 16:43 Alverto Mast MD in [place] 12/25/2024 16:43
[2024-12-26 16:47] LABS: RPR W/RFX Titers Nonreactive (Nonreactive)
[2024-12-27 10:25] LABS: Glucose 1 Hour 120 mg/dL (74-100)
== END 2024-12-25 23:59 | disposition home or self-care (01) ==
LOC: RAD 08:40
PROVIDERS: PCP Nurse Practitioner Family; Visit Provider Obstetrics & Gynecology
DX: O44.03 Complete placenta previa NOS or without hemorrhage, third trimester (principal); Z3A.28 28 weeks gestation of pregnancy
CPT/HCPCS: 36415; 76816; 76830; 82947; 85025; 86592

== ENCOUNTER 2024-12-27 09:05 | Outpatient (CLI) | payer MEDICAID, SELFPAY ==
--- OUTSIDE RECORDS SUMMARY | 2024-12-27 09:11 | XMS_ITS | Clinical Summary ---
Author Organization Healthcare Address [address] [place] [address] Care Team Providers Care Sql Programmer Analyst Name Role Phone Vladimir Baumann DO Primary Care Provider [phone] Immunizations Immunization Administration Dates Next Due Influenza, [...] 12/03/2012 [facility]-Cervical Cancer Screening 2021 [facility]-HPV/Cotest 2021 [id number] Vaccine (2 - 2023- season) 2024 05/11/2021 [...] age to complete this topic Insurance [employer] MEDICAID Care Teams Sql Programmer Analyst Relationship Specialty Start Date End Date Vladimir Baumann DO [address] [place] [address] PCP - General 10/31/20
--- NOTE | 2024-12-27 09:31 | US_ITS ---
PROCEDURE: US OB TRANSVAGINAL CLINICAL INDICATION: needs for placental location evaluation COMPARISON: US US OB <= 14 WEEKS FETUS from 07/27/2024 US US OB /MATERNAL DETAIL from 10/25/2024 US OB FOLLOW UP from 10/30/2024 US OB TRANSVAGINAL from 11/19/2024 US OB FOLLOW UP from 11/19/2024 US OB FOLLOW UP from 12/25/2024 US TRANSVAGINAL from 12/25/2024 FINDINGS: Transvaginal and transabdominal sonographic images of the pelvis were obtained. From her last menstrual period she is 28weeks 6days. heart rate 139 BPM Fetus is in the cephalic presentation. The cervix measures 3.57 cm in length. The placenta does not appear near the internal cervical os and Doppler studies confirm that there is no Vasa previa or other blood supply here. IMPRESSION: 1. Viable fetus in the cephalic presentation. 2. Transvaginal ultrasound reveals the cervix is 3.57 cm in length. 3. Doppler studies do not show any evidence of vascular flow near the cervix or evidence of placental previa. Dictated by: Alverto Mast MD 12/27/2024 13:38 Alverto Mast MD in [place] 12/27/2024 13:38
[2024-12-27 10:03] LABS: Hematocrit 35.6 % (37.0-47.0); Hemoglobin 11.6 g/dL (12.2-16.2); Immature Granulocytes % 1.4 %; Mean Corpuscular HGB Conc 32.6 g/dL (31.8-35.4); Mean Corpuscular Hemoglobin 29.5 pg (27.0-31.2); Mean Corpuscular Volume 90.6 fl (81-99); Nucleated Red Blood Cells % 0 %; Platelet Count 146 K/mm3 (142-424); Red Blood Count 3.93 M/mm3 (4.20-5.40); Red Cell Distribution Width-SD 44.3 fL; White Blood Count 9.1 K/mm3 (4.8-10.8)
[2024-12-27 10:58] LABS: Alanine Aminotransferase 34 U/L (12-78); Albumin Level 3.7 g/dl (3.5-5.0); Albumin/Globulin Ratio 1.5 (1.1-1.8); Alkaline Phosphatase 76 U/L (38-126); Anion Gap 13.9 mEq/L (5-15); Aspartate Amino Transferase 29 U/L (14-36); Bilirubin,Total 0.4 mg/dl (0.2-1.3); Blood Urea Nitrogen 5 mg/dl (7-17); Calcium 9.4 mg/dl (8.4-10.2); Carbon Dioxide 22 mmol/L (22.0-30.0); Chloride 103 mmol/L (98-107); Creatinine,Serum 0.60 mg/dl (0.52-1.04); Estimated Glomerular Filt Rate 115 ml/min (>60); GFR (African American) 139 ML/MIN (>60); Globulin 2.4 g/dL (1.3-3.2); Glucose 106 mg/dl (74-100); Potassium 3.9 mmoL/L (3.5-5.1); Sodium 135 mmol/L (136-145); Total Protein,Serum 6.1 g/dl (6.3-8.2)
[2024-12-27 12:20] LABS: Total Volume,Urine 1850 mL (600-1600)
[2024-12-27 12:32] LABS: Total Protein 24 Hour,Urine 130 mg/24 hr (40-90)
[2024-12-27 13:38] LABS: Uric Acid 3.8 mg/dl (2.5-6.2)
== END 2024-12-27 23:59 | disposition home or self-care (01) ==
LOC: RAD 09:07
PROVIDERS: PCP Nurse Practitioner Family; Visit Provider Obstetrics & Gynecology
DX: O44.03 Complete placenta previa NOS or without hemorrhage, third trimester (principal); Z36.89 Encounter for other specified antenatal screening; Z3A.28 28 weeks gestation of pregnancy
CPT/HCPCS: 36415; 76817; 80053; 84155; 84550; 85025

== ENCOUNTER 2024-12-31 21:36 | Outpatient (CLI) | payer MEDICAID, SELFPAY ==
[2024-12-31 21:40] VITALS: BP 118/75; PULSE 94; RESP 16; TEMP 36.7; O2SAT 98; BMI 39.0
--- OUTSIDE RECORDS SUMMARY | 2024-12-31 21:40 | XMS_ITS | Clinical Summary ---
Author Organization Healthcare Address [address] [place] [address] Care Team Providers Care Lamp Decorator Name Role Phone Vladimir Baumann DO Primary [...] 12/03/2012 [facility]-Cervical Cancer Screening 2021 [facility]-HPV/Cotest 2021 [id number] Vaccine (2 - 2023- season) 2024 05/11/2021 [...] age to complete this topic Insurance [employer] MEDICAID Care Teams Lamp Decorator Relationship Specialty Start Date End Date Vladimir Baumann DO [address] [place] [address] PCP - General 10/31/20
[2024-12-31 22:03] LABS: Microscopic, Urine URINE MICROSCOPIC (MICROSCOPIC)
[2024-12-31 22:04] LABS: Bilirubin,Urine Negative (Negative); Color,Urine YELLOW (Yellow); Glucose,Urine (UA) Negative (Negative); Ketones,Urine Negative (Negative); Leukocyte Esterase,Urine Negative (Negative); PH,Urine 7.0 (5.0-8.5); Protein,Urine Negative (Negative); Specific Gravity, Urine 1.015 (1.005-1.030); Urobilinogen,Urine 1.0 EU/dl (0.2)
[2024-12-31 22:20] LABS: Bacteria,Urine 1+ /lpf; Mucus,Urine 1+ /lpf; RBC,Urine Occasional #/hpf (0-3)
[2024-12-31] MEDS: LACTATED RINGERS 1000ML 1,000 ML 999 ML IV (22:30)
[2024-12-31 23:21] LABS: Fetal Fibronectin (Rapid) Negative (Negative)
== END 2024-12-31 23:35 | disposition home or self-care (01) ==
LOC: OBOUT 21:38 → OB 21:39
PROVIDERS: PCP Nurse Practitioner Family; Visit Provider Obstetrics & Gynecology
DX: Z34.03 Encounter for supervision of normal first pregnancy, third trimester (principal); Z3A.28 28 weeks gestation of pregnancy
CPT/HCPCS: 59025; 81001; 82731; 96360; J7120

== ENCOUNTER 2025-01-22 09:15 | Outpatient (CLI) | payer MEDICAID, SELFPAY ==
--- OUTSIDE RECORDS SUMMARY | 2025-01-22 09:17 | XMS_ITS | Clinical Summary ---
Author Organization Healthcare Address [address] [place] [address] Care Team Providers Care Physician Scientist Name Role Phone Vladimir Baumann DO Primary [...] 12/03/2012 [facility]-Cervical Cancer Screening 2021 [facility]-HPV/Cotest 2021 [id number] Vaccine (2 - 2023- season) 2024 05/11/2021 [...] age to complete this topic Insurance [employer] MEDICAID Care Teams Physician Scientist Relationship Specialty Start Date End Date Vladimir Baumann DO [address] [place] [address] PCP - General 10/31/20
--- NOTE | 2025-01-22 09:30 | US_ITS ---
PROCEDURE: US OB BIOPHYSICAL PROFILE CLINICAL INDICATION: Needs for LGA and CHTN (needs before 11am) COMPARISON: US US OB <= 14 WEEKS FETUS from 07/27/2024 US US OB /MATERNAL DETAIL from 10/25/2024 US OB FOLLOW UP from 10/30/2024 US OB FOLLOW UP from 11/19/2024 US OB TRANSVAGINAL from 11/19/2024 US TRANSVAGINAL from 12/25/2024 US OB FOLLOW UP from 12/25/2024 US OB TRANSVAGINAL from 12/27/2024 FINDINGS: Transabdominal sonographic images of the uterus were obtained. From her established due date she is 32weeks 4days. The following parameters are obtained: Viable Fetus in the cephalic presentation with a posterior placenta grade 1-2. Average ultrasound age is 34weeks 6days Estimated weight 2,662g, 5 lb 14 oz The cervix measures 3.11 cm Measurements: heart Rate = 142bpm BPD = 35weeks 2days, 97 percentile HC = 35weeks 2days, 82 percent AC = 37weeks 4days, >98 percentile FL = 31weeks 0 days, 6 percentile HC/AC is 0.94 FL/BPD is 0.68 FL/AC is 0.18 >98 percentile Amniotic fluid index: 12.65cm, MVP 4.16 cm Qualitative AFV:2 Breathing movements: 2 Gross Body Movements: 2 Tone: 2 Biophysical profile score: 8 No obvious anomalies evident.Kidneys, stomach, bladder, four-chamber heart, three-vessel cord appear normal. IMPRESSION: 1. Viable fetus in the cephalic presentation with a posterior placenta grade 1-2. 2. The fluid is within normal limits with an amniotic fluid index 12.65 cm, MVP 4.16 cm. 3. Biophysical profile is 8/8 with good breathing movement and movement seen. 4. Fetus has shown accelerated growth with the abdominal circumference now 5 weeks ahead. The fetus is greater than the 98th percentile in size. 5. Limited anatomical scan appears normal. Dictated by: Alverto Mast MD 01/22/2025 10:23 Alverto Mast MD in OV 01/22/2025 10:23
== END 2025-01-22 23:59 | disposition home or self-care (01) ==
LOC: RAD 09:15
PROVIDERS: PCP Nurse Practitioner Family; Visit Provider Obstetrics & Gynecology
DX: O10.913 Unspecified pre-existing hypertension complicating pregnancy, third trimester (principal); O36.60X3 Maternal care for excessive fetal growth, unspecified trimester, fetus 3; Z3A.32 32 weeks gestation of pregnancy
CPT/HCPCS: 76816; 76819

== ENCOUNTER 2025-02-04 14:24 | Outpatient (CLI) | payer MEDICAID, SELFPAY ==
--- OUTSIDE RECORDS SUMMARY | 2025-02-04 14:27 | XMS_ITS | Clinical Summary ---
[facility] Address [address] [place] [address] Care Team Providers Care Showplace Manager Name Role Phone Provider, No Known Primary Care Provider Unavail able Social History Tobacco Use Types Packs/Day Years Used Date Smoking Tobacco: Never Assessed Abuse Screen Answer Date Recorded Unsafe at Home or Work/School Not on file Feels Threatened by Someone? Not on file 04/2023 Does Anyone Keep You from Co ntacting Others or Doint Things Outside the Home? Not on file 03/30/2023 Physical Sign of Abuse Present Not on file 1 Housing Stability Answer Date Recorded Current Living Arrangements Not on file 03/20 Potentially Unsafe Housing Conditions Not on maurizio e 03/30/2023 Family and Community Support Answer Darryl e Recorded Help with Day-to-Day Activities Not on file 03/30/2023 Lonely or Isolated Not on file 03/30/2023 Employment Answer Date Recorded Do you want help finding or keeping work or a may b? Not on file 03/30/2023 Disabilities Answer Date Recorded Concentrating, Remembering, or Making Decisions Difficulty Not on file 03/30/2023 Doing Errands Independently Difficulty Not on fi le 03/30/2023 Education Answer Date Recorded Help with school or training? Not on file Preferred Language Not on file 03/30/2023 Estimated Date of Delivery Comme nts Yes 03/15/2025 Sex and Gender Information Value Date Recorded Sex Assigned at Not on file Legal Sex Female 9:52 AM EDT Gender Identity Not on file Sexual Orientation Not on file Plan of Treatment Upcoming Encounters Date Type Department Care Team (Late st Contact Info) Description 02/06/2025 10:00 AM EDT Office Visit [facility] [address] [place] [address] 02/06/2025 10:00 AM EDT Appointment [facility] [address] [place] [address] 02/07/2025 9:30 AM EDT Appointment [facility] ED [address] [place] [address] Health Maintenance Due Date Last Done Comments Annual Gynecologic Pelvic an d Breast Exam 1991 TDAP/TD VACCINES (1 - Tdap) 2010 PAP SMEAR 2012 COVID-19 Vaccine (2023-2 5 season) 2024 ANNUAL PHYSICAL 01/30/2025 HEPATITIS C SCREENING 01/30/2025 RSV Vaccine - Adults (1 - Ri sk 1-dose series) 02/18/2025 INFLUENZA VACCINE 03/20/2025 Pneumococcal Vaccine 0-49 Aged Out No longer eligible based on patient's age to complete this topic Insurance [employer] MEDICAID [place] [employer] Care Teams Showplace Manager Relationship Specialty Start Date End Date Provider, [place] [address] PCP - General 03/09/16
--- OUTSIDE RECORDS SUMMARY | 2025-02-04 14:27 | XMS_ITS | Clinical Summary ---
Author Organization Healthcare Address [address] [place] [address] Care Team Providers Care Hearing Aid Repair Technician Name Role Phone Vladimir Baumann DO Primary [...] Date Last Done Comments [facility]-Depression Screening 1991 [facility]-/Child/Adol SDOH Screenings 1991 HPV Vaccines (3 - 3-dose series) 06/13/2007 02/14/2007, 12/12/2006 [facility]- SDOH Screenings 2009 [facility]-Adult SDOH Screenings 2009 [facility]-Pap Smear 2012 [facility]-Varicella Vaccines (1 of 2 - 13+ 2-dose series) 12/03/2012 [facility]-Cervical Cancer Screening 2021 [facility]-HPV/Cotest 2021 QWK-[id number]-23 Vaccine (2 - 2023- season) 2024 05/11/2021 [...] age to complete this topic Insurance [employer] Care Teams Hearing Aid Repair Technician Relationship Specialty Start Date End Date Vladimir Baumann DO [address] [place] [address] PCP - General 10/31/20
--- NOTE | 2025-02-04 14:45 | US_ITS ---
PROCEDURE: US OB BIOPHYSICAL PROFILE CLINICAL INDICATION: Needs for LGA and CHTN (needs before 11am) COMPARISON: US US OB <= 14 WEEKS FETUS from 07/27/2024 US OB /MATERNAL DETAIL from 10/25/2024 US OB FOLLOW UP from 10/30/2024 US OB FOLLOW UP from 11/19/2024 US OB TRANSVAGINAL from 11/19/2024 US TRANSVAGINAL from 12/25/2024 [facility] OB FOLLOW UP from 12/25/2024 US OB TRANSVAGINAL from 12/27/2024 US OB BIOPHYSICAL PROFILE from 01/22/2025 FINDINGS: Transabdominal sonographic images of the uterus were obtained. From her established due date she is 34weeks 3days. The following parameters are obtained: Viable Fetus in the cephalic presentation with right posterolateral placenta grade 2. Average ultrasound age is 36weeks 5days Estimated weight 2,973g, 6 lb 9 oz The cervix measures 2.79 cm in length. Measurements: heart Rate = 155bpm BPD = 38weeks 2days, >98 percentile HC = 37weeks 4days, 87 percentile AC = 37weeks 6days, >98 percentile FL = 32weeks 5days, 7 percentile HC/AC is 0.97 FL/BPD is 0.67 FL/AC is 0.19 94 percentile Amniotic fluid index: 6.67cm, MVP 4.94 cm Qualitative AFV:2 Breathing movements: 2 Gross Body Movements: 2 Tone: 2 Biophysical profile score: 8 No obvious anomalies evident.Kidneys, profile, stomach, bladder, three-vessel cord appear normal. IMPRESSION: 1. Viable fetus in the cephalic presentation with a right posterolateral placenta grade 2. 2. The fluid is within normal limits with an amniotic fluid index 6.67 cm. MVP 4.94 cm. There is a pocket measuring 4.94 cm deep by 6 cm wide. 3. There continues to be accelerated growth with the fetus currently 94th percentile. The head and abdominal circumference are 4 weeks ahead. 4. Biophysical profile is 8/8 with good breathing movement and movement seen. 5. Limited anatomical scan appears normal. 6. Suggest continued monitoring for accelerated growth. Dictated by: Alverto Mast MD 02/05/2025 06:27 Alverto Mast MD in OV 02/05/2025 06:27
== END 2025-02-04 23:59 | disposition home or self-care (01) ==
LOC: RAD 14:24
PROVIDERS: PCP Nurse Practitioner Family; Visit Provider Obstetrics & Gynecology
DX: O28.3 Abnormal ultrasonic finding on antenatal screening of mother (principal); O10.913 Unspecified pre-existing hypertension complicating pregnancy, third trimester; O36.63X0 Maternal care for excessive fetal growth, third trimester, not applicable or unspecified; Z3A.34 34 weeks gestation of pregnancy
CPT/HCPCS: 76816; 76819

== ENCOUNTER 2025-02-07 19:35 | Observation (INO) | payer MEDICAID, SELFPAY ==
--- OUTSIDE RECORDS SUMMARY | 2025-02-06 09:48 | XMS_ITS | Encounter Summary ---
Author Organization [facility] Address [address] [place] [address] Care Team Providers Care Stand Up Forklift Operator Name Role Phone Provider, No Known Primary Care Provider Unavail able Reason for Referral * Diagnostic Imaging (Routine) - Closed Specialty Diagnoses / Procedures Referred By Ashvin beach Referred To Contact Radiology Diagnoses Gestational diabetes mellitus (GDM) in third trimester controlled on oral hypoglycemic drug , unspecified gestational age Procedures [facility] Diagnostic [place] Shanel Hernandez DO [address] [place] [address] [address] [place] [id number] Phone: tel: fax: [facility] US PER DIAG CTR [address] [place] [address] Phone: tel: Referral ID Status Reason Start Date Expiration Date Visits Re quested Visits Authorized [id number] Closed 01/30/2025 05/01/2026 1 1 Reason for Visit * Diagnostic Imaging (Routine) - Closed Specialty Diagnoses / Procedures Referred By Ashvin beach Referred To Contact Radiology Diagnoses Gestational diabetes mellitus (GDM) in third trimester controlled on oral hypoglycemic drug , unspecified gestational age Procedures [facility] Diagnostic [place] Shanel Hernandez DO [address] [place] [address] [address] [place] [address] Phone: tel: fax: [facility] US PER DIAG CTR [address] [place] [address] Phone: tel: Referral ID Status Reason Start Date Expiration Date Visits Re quested Visits Authorized [id number] Closed 01/30/2025 05/01/2026 1 1 Encounter Details Date Type Department Care Team (Latest Contact Info) Description 02/06/2025 9:48 AM EDT - 02/06/2025 11:59 PM EDT Hospital Encounter [facility] US PER DIAG CTR [address] [place] [address] Gestational diabetes mellitus (GDM) in third trimester [...] mL 1 02/06/2025 Insulin Pen Needle (Pen [place]) 31G X 5 MM misc Use 1 each 4 (Four) Times a Day. 100 each 2 02/06/2025 Vit-Fe Fumarate-FA ( vitamin 27-0.8) 27-0.8 MG tablet tablet Take 1 tablet by mouth Daily. documented as of this encounter Plan of Treatment Pending Results Name Type Priority Associated Diagnoses Date /Time [facility] Imaging Routine Gestational diabetes mellitus (GDM) in third trimester controlled on oral hypoglycemic drug , unspecified gestational age 0802/06/2025 11:47 AM EDT Scheduled Orders Name Type Priority Associated Diagnoses Orde r Schedule [facility] Imaging Routine Gestational diabetes mellitus (GDM) in third trimester controlled on oral hypoglycemic drug , unspecified gestational age Once for 1 Occurrences starting 02/06/2025 until 02/06/2025 documented as of this encounter Visit Diagnoses Diagnosis Gestational diabetes mellitus (GDM) in third trimester controlled on oral hypoglycemic drug , unspecified gestational age documented in this encounter Care Teams Stand Up Forklift Operator Relationship Specialty Start Date End Date Provider, [place] [address] PCP - General 03/09/16 documented as of this encounter
--- OUTSIDE RECORDS SUMMARY | 2025-02-06 10:00 | XMS_ITS | Encounter Summary ---
Author Organization [facility] Address [address] [place] [address] Care Team Providers Care Odd Ticket Clerk Name Role Phone Provider, No Known Primary Care Provider Unavail able Reason for Visit * Reason Comments GDM with hypoglycemia Encounter Details Date Type Department Care Team (Late st Contact Info) Description 02/06/2025 10:00 AM EDT Office Visit [facility] MATERNAL MEDICINE [address] [phone] Jackie Fair MD 1700 [place] [phone] Social History Tobacco Use Types Packs/Day Years [...] 10:23 AM EDT documented in this encounter Plan of Treatment Not on file documented as of this encounter Visit Diagnoses Not on filedocumented in this encounter Care Teams Odd Ticket Clerk Relationship Specialty Start Date End Date Provider, No Known [facility] [place] [address] PCP - General 03/09/16 documented as of this encounter
--- OUTSIDE RECORDS SUMMARY | 2025-02-07 13:38 | XMS_ITS | Encounter Summary ---
Author Organization [facility] Address [address] [place] [address] Care Team Providers Care House Registry Rn Name Role Phone Provider, No Known Primary Care Provider Unavail able Encounter Details Date Type Department Care Team (Late st Contact Info) Description 02/06/2025 Documentation [facility] MATERNAL MEDICINE 1700 [facility] [address] [place] [address] Anabell Tejada RN Social History Tobacco Use Types Packs/Day Years [...] on file documented as of this encounter Progress Notes * Anabell Tejada RN - 02/06/2025 12:28 PM EDT Spoke with patient in person. Diabetic folder given and reviewed. Patient currently has a Dexcom sensor G6. Instructed how to add our clinic code. Reviewed folder with office hours, how to contact, how to send in glood sugar log if the Dexcom sensors fail. Reviewed diet, the importance of protein with meals and snacks. Patient voices understnading and demonstrated how to use sensor. Patient does wish to change to a Dexcom G7 sensor. Dr. Fair is starting patient on lantus 10 units at night. Discussed with patient and that injections pens would be sent in. Patient voices understanding onhow to use stating she has several family memebers that are T1DM. Patient denies any further needs at this time. Will send invitation for patient to activate MyChart. Anabell Tejada RN documented in this encounter Plan of Treatment Not on file documented as of this encounter Visit Diagnoses Not on filedocumented in this encounter Care Teams House Registry Rn Relationship Specialty Start Date End Date Provider, [place] [address] PCP - General 03/09/16 documented as of this encounter
--- OUTSIDE RECORDS SUMMARY | 2025-02-07 13:38 | XMS_ITS | Clinical Summary ---
Author Organization [facility] Address [address] [place] [address] Care Team Providers Care Neighborhood Worker Name Role Phone Provider, No Known Primary Care Provider Unavail able Allergies Active Allergy Reactions Criticality Noted Date Comments Amoxicillin-Pot Clavulanate Hives,Rash Low 02/07/20 25 Childhood allergy Medications Continuous Glucose Sensor (Dexcom G6 Sensor) 5 Active Continuous Glucose Transmitter (Dexcom G6 Transmitter) misc 5 Active fluticasone (FLONASE) 50 MCG/ACT nasal spray As Needed. 5 Active Vit-Fe Fumarate-FA ( vitamin 27-0.8) 27-0.8 MG tablet tablet Take 1 tablet by mouth Daily. Active Insulin Glargine (LANTUS SOLOSTAR) 100 UNIT/ML injection pen Inject 10 Units under the skin into the appropriate area as directed Every Night. 15 mL 1 5 Active Insulin Pen Needle (Pen [place]) 31G X 5 MM misc Use 1 each 4 (Four) Times a Day. 100 each 2 5 Active Continuous Glucose Sensor (Dexcom G7 Sensor) misc Use 1 each Every 10 (Ten) Days. 3 each 11 5 Active Encounters Date Type Department Care Team Description 02/06/2025 10:00 AM EDT Office Visit [facility] MATERNAL MEDICINE 1700 [facility] [address] [place] [phone] Jackie Fair MD 02/06/2025 9:48 AM EDT - 02/06/2025 11:59 PM EDT Hospital Encounter [facility] PER [facility] [address] [place] [phone] Gestational diabetes mellitus (GDM) in third trimester controlled on oral hypoglycemic drug; , unspecified gestational age Discharge Disposition: Home or Self Care 02/06/2025 Documentation [facility] MATERNAL MEDICINE 17[address] [facility] [address] [place] [address] Anabell Tejada RN 02/06/2025 Medication Therapy Management [facility] MATERNAL MEDICINE 17[address] [facility] [address] [place] [phone] Jackie Fair MD 02/06/2025 Travel from Last 3 Months Social History Tobacco Use Types Packs/Day Years [...] Mass Index 41.71 02/06/2025 10:23 AM EDT Plan of Treatment Health Maintenance Due Date Last Done Comments Annual Gynecologic Pelvic an d Breast Exam 1990 PAP SMEAR 2012 COVID-19 Vaccine (2 - 2023-2 5 season) 2024 05/11/2021 ANNUAL PHYSICAL 01/30/2025 HEPATITIS C SCREENING 01/30/2025 RSV Vaccine - Adults (1 - Risk 1-dose series) 02/18/2025 INFLUENZA VACCINE 03/20/2025 04/17/2012, 04/11/2007 TDAP/TD VACCINES (2 - Td or Tdap) 05/15/2030 05/15/2020 Pneumococcal Vaccine 0-49 Aged Out No longer eligible based on patient's age to complete this topic Insurance [employer] [place] [address] [facility] [employer] Care Teams Neighborhood Worker Relationship Specialty Start Date End Date Provider, No Known [facility] [place] [address] PCP - General 03/09/16
--- OUTSIDE RECORDS SUMMARY | 2025-02-07 13:38 | XMS_ITS | Encounter Summary ---
Author Organization [facility] Address [address] [place] [address] Care Team Providers Care Service Desk Technician Name Role Phone Provider, No Known Primary Care Provider Unavail able Encounter Details Date Type Department Care Team (Late st Contact Info) Description 02/06/2025 Medication Therapy Management [facility]ERNAL MEDICINE [address] [place] [phone] Jackie Fair MD 1700 [place] [address] Social History Tobacco Use Types Packs/Day Years [...] on file documented as of this encounter Plan of Treatment Not on file documented as of this encounter Visit Diagnoses Not on filedocumented in this encounter Care Teams Service Desk Technician Relationship Specialty Start Date End Date Provider, No Known [facility] [place] [address] PCP - General 03/09/16 documented as of this encounter
--- OUTSIDE RECORDS SUMMARY | 2025-02-07 13:38 | XMS_ITS | Clinical Summary ---
Author Organization [facility] Address [address] [place] [address] Care Team Providers Care Central Office Equipment Installer Name Role Phone Vladimir Baumann DO Primary [...] 12/03/2012 [facility]-Cervical Cancer Screening 2021 [facility]-HPV/Cotest 2021 [id number] Vaccine (2 - 2023- season) 2024 05/11/2021 [...] age to complete this topic Insurance [employer] Care Teams Central Office Equipment Installer Relationship Specialty Start Date End Date Vladimir Baumann DO [address] [place] [address] PCP - General 10/31/20
--- OUTSIDE RECORDS SUMMARY | 2025-02-07 13:38 | XMS_ITS | Encounter Summary ---
Author Organization [facility] Address [address] [place] [address] Care Team Providers Care Benefits Consulting Analyst Name Role Phone Provider, No Known Primary Care Provider Unavail able Encounter Details Date Type Department Care Team (Latest Contact Info) Description 02/06/2025 Travel Social History Tobacco Use Types Packs/Day Years [...] on filedocumented in this encounter Care Teams Benefits Consulting Analyst Relationship Specialty Start Date End Date Provider, No Known [facility] [place] [address] PCP - General 03/09/16 documented as of this encounter
[2025-02-07 13:39] LABS: Microscopic, Urine URINE MICROSCOPIC (MICROSCOPIC)
[2025-02-07 13:41] LABS: Bilirubin,Urine Negative (Negative); Color,Urine YELLOW (Yellow); Glucose,Urine (UA) Negative (Negative); Ketones,Urine Negative (Negative); Leukocyte Esterase,Urine 1+ (Negative); PH,Urine 6.5 (5.0-8.5); Protein,Urine Negative (Negative); Specific Gravity, Urine <= 1.005 (1.005-1.030); Urobilinogen,Urine 0.2 EU/dl (0.2)
[2025-02-07 13:53] LABS: Bacteria,Urine 1+ /lpf
[2025-02-07 14:03] VITALS: BP 134/76; PULSE 98; RESP 18; TEMP 36.7; O2SAT 97; BMI 39.6
[2025-02-07] MEDS: LACTATED RINGERS 1000ML 1,000 ML 999 ML IV (15:41)
[2025-02-07 20:09] VITALS: BP 119/71; PULSE 87; RESP 19; TEMP 36.9; O2SAT 98
[2025-02-07] MEDS: TERBUTALINE SULFATE 1MG/ML VIAL 0.25 MG SUBCUT (20:12)
[2025-02-07] MEDS: LACTATED RINGERS 1000ML 1,000 ML 125 ML IV (20:12)
[2025-02-07] MEDS: ACETAMINOPHEN 500MG TAB 1000 MG PO (20:22)
[2025-02-07 21:52] LABS: POC Glucose,Bedside 98 (70-110)
[2025-02-07] MEDS: BUTORPHANOL TARTRATE 1 MG/ML VIAL IV (22:49)
[2025-02-07] MEDS: ONDANSETRON 4MG/2ML VIAL 4 MG IV (23:18)
[2025-02-08 00:36] VITALS: BP 95/62; PULSE 75; RESP 16; TEMP 36.6; O2SAT 98
[2025-02-08] MEDS: LACTATED RINGERS 1000ML 1,000 ML 125 ML IV (03:59)
[2025-02-08 06:12] VITALS: BP 97/48; PULSE 75; RESP 16; TEMP 36.8; O2SAT 98
[2025-02-08] MEDS: ACETAMINOPHEN 500MG TAB 1000 MG PO (06:19)
[2025-02-08 06:27] LABS: POC Glucose,Bedside 76 (70-110)
--- NOTE | 2025-02-08 09:07 | EXP.HPDC ---
General Admission date:: 02/07/25 Discharge date: 02/08/25 *Admission Date: 02/07/25 *Chief complaint: contractions *History of present illness: Bernadette Soto is a 34-year-old who was admitted with contractions at 34 weeks and 6 days gestation. Her contractions were noted to be irregular and anywhere from 5-10+ minutes apart. She was monitored for greater than 12 hours and not noted to make any cervical change. She was given 1 dose of terbutaline shortly after admission around 8:00 last night but has not received any other tocolytics. This was primarily given for pain management. This has been complicated by chronic hypertension and gestational diabetes as well as obesity. Throughout her admission her blood pressure and blood sugar has remained well-controlled [facility] Disclaimer: The information contained in this section may have been updated after the patient was seen, as this information can be updated by other users. Medical History Sinusitis Fever Problematic vaginal discharge depression Sinusitis Bronchitis Viral syndrome History of Asthma Surgical History History of surgery on arm Family History Other Diabetes Stroke Social History (Updated 02/07/25 @ 19:52 by Edwina Monroy RN) Smoking Status: Never smoker alcohol intake: never substance use type: denies use current occupational status: employed Travel in the last 8 weeks?: None Have you lived/traveled outside US in past 30 days?: No Contact w/someone who lives/traveled outside US past 30 days?: No Exposure to someone with infectious disease in past 14 days?: No Do you have a fever (greater than 100.4 F or 38 C)?: No Have you tested positive for COVID-19?: No Exposed to someone with COVID-19 in past 14 days?: No Do you have a sore throat?: No Do you have a cough?: No Do you have any weakness?: No Are you experiencing any nausea/vomitting?: No Do you have any diarrhea?: No Are you experiencing any unusual bleeding?: No Do you have any muscle aches/pain?: No Do you have any abdominal pain?: No Are you experiencing loss of taste or smell?: No Other Medical History Have you received the Flu Vaccine for this season: No Have you received the Pneumonia Vaccine: No Review of Systems Review of Systems Review of systems (narrative): Review of Systems Constitutional: Denies fever, chills, and sweats Eyes: Denies vision change/ pain Respiratory: Denies cough and shortness of breath Cardiovascular: Denies chest pain and lightheadedness Gastrointestinal: Admits abdominal pain with contractions that are irregular. pt states she doesnt feel all of her contractions. Denies nausea, vomiting. Genitourinary: Denies dysuria and incontinence Musculoskeletal: Denies shoulder pain and back pain Neurological: Denies change in speech or headaches Exam Data for Last 24 hours Vital signs and Labs for Last 24 Hours: Temp Pulse Resp BP Pulse Ox O2 Del Method 98.2 F 75 16 97/48 L 98 Room Air 02/08/25 06:12 02/08/25 06:12 02/08/25 06:12 02/08/25 06:12 02/08/25 06:12 02/08/25 06:12 Laboratory Results - last 24 hr 02/07/25 13:30: Urine Color Yellow, Urine Appearance Clear, Urine pH 6.5, Ur Specific Cath[place]in <= 1.005, Urine Protein Negative, Urine Glucose (UA) Negative, Urine Ketones Negative, Urine Blood Negative, Urine Nitrate Negative, Urine Bilirubin Negative, Urine Urobilinogen 0.2, Ur Leukocyte Esterase 1+ A, Urine RBC None, Urine WBC 5-10, Ur Squamous Epith Cells 5-10, Urine Bacteria 1+ 02/07/25 21:45: POC Glucose 98 02/08/25 06:19: POC Glucose 76 I & O for Last 24 hours: Intake & Output 02/05/25 02/06/25 02/07/25 02/08/25 23:59 23:59 23:59 23:59 Intake Total 1000 / 1000 972.917 / 972.917 Balance 1000 / 1000 972.917 / 972.917 Weight 276 lb Narrative: General: patient is alert oriented in no acute distress and responds appropriately to questions. HEENT: NCAT, EOMI, moist mucous membranes, neck supple with full ROM Cardiovascular: RRR +S1/S2, no murmurs or rubs Pulmonary: Clear to auscultation bilaterally, nonlabored breathing, symmetric chest rise Abdominal: Gravid abdomen appropriate for gestation. No guarding, rebound, or tenderness noted. Extremities: trace edema, no tenderness or cyanosis noted Skin: Normal turgor, intact, warm. Negative for erythema, pallor, petechia, or lesions Neurologic: Negative for sensory or motor deficit Psychiatric: Normal affect, normal thought process, good judgment and insight, no depression or anxious mood appreciated. *Routine HEENT Exam Head: Present normocephalic and atraumatic Eye: Present EOMI, PERRL and normal accommodation; Absent conjunctival icterus, scleral injection, nystagmus or exophthalmos ENT: Present mucous membranes moist *Routine Respiratory Exam Respiratory: Present CTA bilaterally, normal respiratory effort, able to speak in complete sentences and symmetric chest movement; Absent accessory muscle use, decreased breath sounds, rales, respiratory distress, wheezes, distant breath sounds or diminished air movement *Routine Cardiovascular Exam Cardiovascular: Present RRR, Normal S1 and Normal S2; Absent murmur or gallop *Routine Abdominal Exam Abdominal: Present soft and normoactive bowel sounds; Absent tenderness, distended, rebound or guarding *Routine Rectal Exam Rectal:: deferred *Routine Genitalia Exam Genitalia:: normal female Meds Home Medications and Allergies Home Medications ?Medication ?Instructions ?Recorded ?Confirmed ?Type vits no.126-ferrous fum 1 tab PO DAILY 07/17/24 02/08/25 History 28 mg iron-folic acid 800 mcg tablet (Classic ) albuterol sulfate 90 mcg/actuation 2 puff inhalation Q4-6H PRN 09/05/24 02/08/25 Rx aerosol inhaler shortness of breath or wheezing #8.5 grams fluticasone propionate 50 2 spray intranasal DAILY #16 grams 11/15/24 02/08/25 Rx mcg/actuation nasal spray,suspension (Flonase Allergy Relief) New Prescriptions to Start Prescriptions: Allergies Allergy/AdvReac Type Severity Reaction Status Date / Time amoxicillin (From AUGMENTIN) Allergy Unknown Rash Verified 02/08/25 04:39 clavulanic acid (From Allergy Unknown Rash Verified 02/08/25 04:39 AUGMENTIN) Hospital Course Hospital Course Hospital Course: Bernadette Soto is a 34-year-old who was admitted with contractions at 34 weeks and 6 days gestation. Her contractions were noted to be irregular and anywhere from 5-10+ minutes apart. She was monitored for greater than 12 hours and not noted to make any cervical change. She was given 1 dose of terbutaline shortly after admission around 8:00 last night but has not received any other tocolytics. This was primarily given for pain management. This has been complicated by chronic hypertension and gestational diabetes as well as obesity. Throughout her admission her blood pressure and blood sugar has remained well-controlled she likes to go home with short interval follow-up and strict return precautions. Results Data Completed and Pending Labs on day of discharge: Labs from last 24 hours 02/08/25 02/07/25 02/07/25 06:19 21:45 13:30 POC Glucose 76 98 Urine Color Yellow Urine Appearance Clear Urine pH 6.5 Ur Specific Catharpin <= 1.005 Urine Protein Negative Urine Glucose (UA) Negative Urine Ketones Negative Urine Blood Negative Urine Nitrate Negative Urine Bilirubin Negative Urine Urobilinogen 0.2 Ur Leukocyte Esterase 1+ A Urine RBC None Urine WBC 5-10 Ur Squamous Epith Cells 5-10 Urine Bacteria 1+ DS: Diagnosis Discharge Diagnosis (1) contractions: Status: Acute Code(s): O47.00 - False labor before 37 completed weeks of gestation, unspecified trimester Discharge Plan Disposition Patient Disposition: Home, Self-Care Follow up Plan Follow up with: Shanel Hernandez DO [Staff Physician, ANALYSIS OR RESEARCH SAFETY INSPECTOR] - Enter time for follow up Prescriptions/Medication Reconciliation: Continued Classic 28 mg iron- 800 mcg tablet 1 tab PO DAILY albuterol sulfate 90 mcg/actuation HFA aerosol inhaler 2 puff inhalation Q4-6H PRN (Reason: shortness of breath or wheezing) Qty: 8.5 0RF fluticasone propionate [Flonase Allergy Relief] 50 mcg/actuation spray,suspension 2 spray intranasal DAILY Qty: 16 2RF Rx Instructions: administer into each nostril daily Problem Reconciliation Problems Reviewed?: Yes Patient Discharge Instructions ACTIVITY: Continue current activity DIET: regular diet Print Language: Romansh Providers Primary Care Provider: Provider,Referral Admit Provider: Shanel Hernandez Attending Provider: Shanel Hernandez
== END 2025-02-08 11:18 | disposition home or self-care (01) ==
LOC: OBOUT 19:36 → OB 19:37
PROVIDERS: Admitting Provider Obstetrics & Gynecology; Visit Provider Obstetrics & Gynecology
DX: O47.03 False labor before 37 completed weeks of gestation, third trimester (principal); O99.513 Diseases of the respiratory system complicating pregnancy, third trimester; O10.913 Unspecified pre-existing hypertension complicating pregnancy, third trimester; O99.213 Obesity complicating pregnancy, third trimester; E66.9 Obesity, unspecified; O24.419 Gestational diabetes mellitus in pregnancy, unspecified control; Z3A.34 34 weeks gestation of pregnancy; Z87.59 Personal history of other complications of pregnancy, childbirth and the puerperium; Z88.0 Allergy status to penicillin; Z88.1 Allergy status to other antibiotic agents; Z79.51 Long term (current) use of inhaled steroids
CPT/HCPCS: 59025; 81001; 82962; 87086; 96360; 96361; 96372; 96374; G0378; J0595; J2405; J3105; J7120

== ENCOUNTER 2025-02-12 14:00 | Outpatient (CLI) | payer MEDICAID, SELFPAY ==
--- OUTSIDE RECORDS SUMMARY | 2025-02-06 09:48 | XMS_ITS | Encounter Summary ---
Author Organization [facility] Address [address] [place] [address] Care Team Providers Care Sample Hand Name Role Phone Provider, No Known Primary Care Provider Unavail able Reason for Referral * Diagnostic Imaging (Routine) - Closed Specialty Diagnoses / Procedures Referred By Ashvin beach Referred To Contact Radiology Diagnoses Gestational diabetes mellitus (GDM) in third trimester controlled on oral hypoglycemic drug , unspecified gestational age Procedures [facility] [place] Vern Hernandez DO [address] [place] [address] [place] [id number] Phone: tel: fax: [facility] US PER DIAG CTR [address] [place] [address] Phone: tel: Referral ID Status Reason Start Date Expiration Date Visits Re quested Visits Authorized [id number] Closed 01/30/2025 05/01/2026 1 1 Reason for Visit * Diagnostic Imaging (Routine) - Closed Specialty Diagnoses / Procedures Referred By Ashvin beach Referred To Contact Radiology Diagnoses Gestational diabetes mellitus (GDM) in third trimester controlled on oral hypoglycemic drug , unspecified gestational age Procedures [facility] Diagnostic [place] Vern Hernandez DO [address] [place] [address] [address] [place] [address] Phone: tel: fax: [facility] US PER DIAG CTR [address] [place] [address] Phone: tel: Referral ID Status Reason Start Date Expiration Date Visits Re quested Visits Authorized [id number] Closed 01/30/2025 05/01/2026 1 1 Encounter Details Date Type Department Care Team (Latest Contact Info) Description 02/06/2025 9:48 AM EDT - 02/06/2025 11:59 PM EDT Hospital Encounter [facility] US PER DIAG [facility] [address] [place] [address] Vern Hernandez, [address] [place] [address] [facility] [address] [place] [address] Gestational diabetes mellitus (GDM) in third trimester controlled on oral hypoglycemic drug; , unspecified gestational age Discharge Disposition: Home or Self Care Social History Tobacco Use Types Packs/Day Years Used Date Smoking Tobacco: Never Smokeless Tobacco: Never Alcohol Use Standard Drinks/Week Comments Never 0 (1 standard drink = 0.6 oz pur e alcohol) Abuse Screen Answer Date Recorded Unsafe at [...] file Preferred Language Not on file 03/30/2023 PHQ-2 Answer Date Recorded Patient Health Questionnaire-9 Score 0 02/05/2025 Estimated Date of Delivery Comme nts Yes 03/15/2025 Date entered nirali or to episode creation Sex and Gender Information Value Date Recorded Sex Assigned at Not on file Legal Sex Female 9:52 AM EDT Gender Identity Not on file Sexual Orientation Not on file documented as of this encounter Medications at Time of Discharge Continuous Glucose Sensor (Dexcom G6 Sensor) 01/23/2025 Continuous Glucose Sensor (Dexcom G7 Sensor) misc Use 1 each Every 10 (Ten) Days. 3 each 11 02/06/2025 Continuous Glucose Transmitter (Dexcom G6 Transmitter) misc 01/23/2025 fluticasone (FLONASE) 50 MCG/ACT nasal spray As Needed. 11/15/2024 Insulin Glargine (LANTUS SOLOSTAR) 100 UNIT/ML injection pen Inject 10 Units under the skin into the appropriate area as directed Every Night. 15 mL 1 02/06/2025 Insulin Pen Needle (Pen Hessel) 31G X 5 MM misc Use 1 each 4 (Four) Times a Day. 100 each 2 02/06/2025 Vit-Fe Fumarate-FA ( vitamin 27-0.8) 27-0.8 MG tablet tablet Take 1 tablet by mouth Daily. documented as of this encounter Plan of Treatment Not on file documented as of this encounter Procedures Procedure Name Priority Date/Time Associated Diagnosis Comments [facility] Routine 02/06/2025 11:47 AM EDT Gestational diabetes mellitus (GDM) in third trimester controlled on oral hypoglycemic drug , unspecified gestational age documented in this encounter Results * [facility] (02/06/2025 11:47 AM EDT) Anatomical Region Laterality Modality Ultrasound 02/06/2025 11:0 2 AM EDT Narrative 02/11/2025 10:06 AM EDT PAT NAME: HENRI BERNADETTE [facility] REC#: [id number] DA: 1990 PAT GEND: F PAT TYPE: O EXAM DARRYL: [id number] REF PHYS VERN HERNANDEZ Comparison Studies There are no relevant prior studies to which this study is being compared Patient Status Outpatient Indication ======== GDM, CHTN, hx PTL, obesity Maternal Assessment Height 174 cm Height (ft) 5 ft Height (in) 9 in Weight 126 kg Weight (lb) 278 lb BMI 41.65 kg/m Method ======= Transabdominal ultrasound examination ========= Meyers . Number of fetuses: 1 Dating ====== Method of dating: based on stated AD GA by prior assessment 34 w + 5 d AD by prior assessment: 03/15/2025 Ultrasound examination on: 02/06/2025 GA by U/S based upon: AC, BPD, Femur, HC GA by U/S 36 w + 4 d AD by U/S: 03/02/2025 Assigned: based on stated AD, selected on 02/06/2025 Assigned GA 34 w + 5 d Assigned AD: 03/15/2025 length 280 d Biometry Standard BPD 93.7 mm 38w 1d >99% Hadlock OFD 116.6 mm -/- >99% Shonda HC 334.6 mm 38w 2d 93% Hadlock AC 340.6 mm 38w 0d >99% Hadlock Femur 61.7 mm 32w 0d 2% Hadlock Humerus 56.0 mm 32w 4d 13% Shonda HC / AC 0.98 EFW 2,985 g 36w 6d 91% Hadlock EFW (lb) 6 lb EFW (oz) 9 oz EFW by: Hadlock ([id number]) Extended Cav. septi pel. tr 5.7 mm Bisque Kiln Placer 6.6 mm Head / Face / Neck Cephalic index 0.80 46% Nicolaides Extremities / Bony Struc FL / BPD 0.66 FL / HC 0.18 FL / AC 0.18 Other Structures FHR 159 bpm General Evaluation Cardiac activity present. FHR 159 bpm. movements present. Presentation cephalic. Placenta Placental site: posterior, right. Umbilical cord Cord vessels: 3 vessel cord. Insertion site: Not visible. Amniotic fluid Amount of AF: normal. MVP 4.7 cm. RYAN 14.7 cm. Q1 3.8 cm, Q2 4.7 cm, Q3 3.8 cm, Q4 2.4 cm. Anatomy Cranium: Appears normal Midline falx: Appears normal Cavum septi pellucidi: Appears normal Cerebellum: Appears normal Cisterna magna: Appears normal Head / Neck Rt lateral ventricle: Appears normal Lt lateral ventricle: Appears normal Rt choroid plexus: Appears normal Lt choroid plexus: Appears normal Vermis: Appears normal Neck: Appears normal Lips: Appear normal Profile: visualized Nose: Appears normal Face Nose: Nasal bone present Palate: suboptimal Maxilla: suboptimal Mandible: suboptimal Orbits: suboptimal Lens: Normal 4-chamber view: Appears normal RVOT view: Appears normal LVOT view: Appears normal Heart / Thorax Aortic arch view: Appears normal Ductal arch view: suboptimal SVC: normal IVC: normal 3-vessel view: Appears normal 5-sjtfsm-iqoyzlz view: Appears normal Rt lung: Appears normal Lt lung: normal Diaphragm: Appears normal Diaphragm: Intact Cord insertion: suboptimal Stomach: Appears normal Kidneys: Appears normal Bladder: Appears normal Abdomen Rt kidney: normal Lt kidney: normal Liver: normal Small bowel: normal Large bowel: normal Cervical spine: Appears normal Thoracic spine: Appears normal Lumbar spine: Appears normal Sacral spine: Appears normal Arms: suboptimal Legs: Appears normal Lt arm: Appears normal Rt hand: suboptimal Lt hand: suboptimal Rt upper leg: Appears normal Rt lower leg: Appears normal Rt foot: suboptimal Lt upper leg: Appears normal Lt lower leg: Appears normal Lt foot: suboptimal Gender: female Wants to know gender: yes Doppler Arterial Umbilical A PI 0.97 73% Shawanda Umbilical A RI 0.64 75% Shawanda Umbilical A PS 46.15 cm/s 36% Ebbing Umbilical A ED 17.63 cm/s Umbilical A TAmax 31.15 cm/s 39% Ebbing Umbilical A MD 17.30 cm/s Umbilical A S / D 2.76 66% Shawanda Umbilical A HR 159 bpm Biophysical Profile 2: breathing movements 2: Gross body movements 2: tone 2: Amniotic fluid volume 8/8 Biophysical profile score Maternal Structures Uterus / Cervix Cervix: Visualized Approach: Transabdominal Ovaries / Tubes / Adnexa Rt ovary: Visualized Lt ovary: Visualized Impression Cephalic S>D Normal appearing limited anatomy Normal fluid BPP 8/8 UA doppler normal Coding ======= Description: 77198-44 Detailed Ultrasound Description: 10819-93 BPP without NST Manager Of Procurement: Hoda Coats RDMS Physician: Jackie aFir MD, FACOG Electronically signed by: Jackie Fair MD, FACOG at: 10:06 Procedure Note Jackie Fair MD - 02/11/2025 PAT NAME: BERNADETTE ÁLVAREZ [facility] REC#: [id number] DA: [id number] PAT GEND: F PAT TYPE: O EXAM DARRYL: [id number] REF PHYS VERN HERNANDEZ Comparison Studies There are no relevant prior studies to which this study is beingcompared Patient Status Outpatient Indication ======== GDM, CHTN, hx PTL, obesity Maternal Assessment Drriug267 cm Height (ft)5 ft Height (in)9 in Emowuu863 kg Weight (lb)278 lb BMI41.65 kg/m Method ======= Transabdominal ultrasound examination ========= Meyers . Number of fetuses: 1 Dating ====== Method of dating:based on stated AD GA by prior [id number] w + 5 d AD by prior assessment:03/15/2025 Ultrasound examination on:02/06/2025 GA by U/S based upon:AC, BPD, Femur, HC GA by U/S36 w + 4 d AD by U/S:03/02/2025 Assigned:based on stated AD, selected on 02/06/2025 Assigned GA34 w + 5 d Assigned AD:03/15/2025 [id number] d Biometry Standard BPD93.7 mm 38w 1d >99% Hadlock FJZ460.6 mm -/- >99% Shonda HC334.6 mm 38w 2d 93% Hadlock AC340.6 mm 38w 0d >99% Hadlock Femur61.7 mm 32w 0d 2% Hadlock Yjvrvxh33.0 mm 32w 4d 13% Shonda HC / AC0.98 EFW2,985 g 36w 6d 91% Hadlock EFW (lb)6 lb EFW (oz)9 oz EFW by:Hadlock (NDI-DB-CC-FL) Extended Cav. septi pel. tr5.7 mm Vp6.6 mm Head / Face / Neck Cephalic index0.80 46% Nicolaides Extremities / Bony Struc FL / BPD0.66 FL / HC0.18 FL / AC0.18 Other Structures [id number] bpm General Evaluation Cardiac activity present. FHR 159 bpm. movements present. Presentation cephalic. Placenta Placental site: posterior, right. Umbilical cord Cord vessels: 3 vessel cord. Insertion site: Not visible. Amniotic fluid Amount of AF: normal. MVP 4.7 cm. RYAN 14.7 cm. Q1 3.8 cm,Q2 4.7 cm, Q3 3.8 cm, Q4 2.4 cm. Anatomy Cranium:Appears normal Midline falx:Appears normal Cavum septi pellucidi:Appears normal Cerebellum:Appears normal Cisterna magna:Appears normal Head / Neck Rt lateral ventricle:Appears normal Lt lateral ventricle:Appears normal Rt choroid plexus:Appears normal Lt choroid plexus:Appears normal Vermis:Appears normal Neck:Appears normal Lips:Appear normal Profile:visualized Nose:Appears normal Face Nose:Nasal bone present Palate:suboptimal Maxilla:suboptimal Mandible:suboptimal Orbits:suboptimal Lens:Normal 4-chamber view:Appears normal RVOT view:Appears normal LVOT view:Appears normal Heart / Thorax Aortic arch view:Appears normal Ductal arch view:suboptimal SVC:normal IVC:normal 3-vessel view:Appears normal 4-usxvmt-giormwj view:Appears normal Rt lung:Appears normal Lt lung:normal Diaphragm:Appears normal Diaphragm:Intact Cord insertion:suboptimal Stomach:Appears normal Kidneys:Appears normal Bladder:Appears normal Abdomen Rt kidney:normal Lt kidney:normal Liver:normal Small bowel:normal Large bowel:normal Cervical spine:Appears normal Thoracic spine:Appears normal Lumbar spine:Appears normal Sacral spine:Appears normal Arms:suboptimal Legs:Appears normal Lt arm:Appears normal Rt hand:suboptimal Lt hand:suboptimal Rt upper leg:Appears normal Rt lower leg:Appears normal Rt foot:suboptimal Lt upper leg:Appears normal Lt lower leg:Appears normal Lt foot:suboptimal Gender:female Wants to know gender:yes Doppler Arterial Umbilical A PI0.97 73% Shawanda Umbilical A RI0.64 75% Shawanda Umbilical A PS46.15 cm/s 36% Ebbing Umbilical A ED17.63 cm/s Umbilical A TAmax31.15 cm/s 39% Ebbing Umbilical A MD17.30 cm/s Umbilical A S / D2.76 66% Shawanda Umbilical A HR159 bpm Biophysical Profile 2: breathing movements 2: Gross body movements 2: tone 2: Amniotic fluid volume 8/8 Biophysical profile score Maternal Structures Uterus / Cervix Cervix:Visualized Approach:Transabdominal Ovaries / Tubes / Adnexa Rt ovary:Visualized Lt ovary:Visualized Impression Cephalic S>D Normal appearing limited anatomy Normal fluid BPP 8/8 UA doppler normal Coding ======= Description:05281-23 Detailed Ultrasound Description:41154-41 BPP without NST Manager Of Procurement: Hoda Coats RDMS Physician: Jackie Fair MD, FACOG Electronically signed by: Jackie Fair MD, FACOG at: 2510:06 us Vern Hernandez DO G US ORDERABLES Final Res ult documented in this encounter Visit Diagnoses Diagnosis Gestational diabetes mellitus (GDM) in third trimester controlled on oral hypoglycemic drug , unspecified gestational age documented in this encounter Care Teams Sample Hand Relationship Specialty Start Date End Date Provider, [place] [address] PCP - General 03/09/16 documented as of this encounter
--- OUTSIDE RECORDS SUMMARY | 2025-02-06 10:00 | XMS_ITS | Encounter Summary ---
Author Organization [facility] Address [address] [place] [address] Care Team Providers Care Seed Packer Name Role Phone Provider, No Known Primary Care Provider Unavail able Reason for Visit * Reason Comments GDM with hypoglycemia Encounter Details Date Type Department Care Team (Late st Contact Info) Description 02/06/2025 10:00 AM EDT Office Visit [facility] MATERNAL MEDICINE [address] [phone] Jackie Greene MD 1700 [facility] [address] [place] [phone] Unspecified high-risk (Primary Dx); GDM, class A2 [...] under imaging tab of patient chart in [facility] (Viewpoint report). Jackie Greene MD * [...] Rfl: Continuous Glucose Transmitter (Dexcom G6 Transmitter) [facility], , Disp: , Rfl: fluticasone (FLONASE) 50 MCG/ACT nasal spray, As Needed., Disp: , Rfl: Vit-Fe Fumarate-FA ( vitamin 27-0.8) 27-0.8 MG tablet tablet, Take 1 tablet by mouth Daily., Disp: , Rfl: Continuous Glucose Sensor (Dexcom G7 Sensor) [facility], Use 1 each Every 10 (Ten) Days., Disp: 3 each, Rfl: 11 Insulin Glargine (LANTUS SOLOSTAR) 100 UNIT/ML injection pen, Inject 10 Units under the skin into the appropriate area as directed Every Night., Disp: 15 mL, Rfl: 1 Insulin Pen Needle (Pen [place]) 31G X 5 MM [facility], Use 1 each 4 (Four) Times a [...] other procedures such as amniocentesis or CVS. Jacike Greene MD FACOG Maternal Medicine, [facility] 02/06/2025 documented in this encounter Plan of Treatment Not on file documented as of this encounter Visit Diagnoses Diagnosis Unspecified high-risk - Primary GDM, class A2 Abnormal maternal glucose tolerance, complicating , childbirth, or the puerperium, unspecified as to episode of care documented in this encounter Care Teams Seed Packer Relationship Specialty Start Date End Date Provider, [place] [address] PCP - General 03/09/16 documented as of this encounter
--- OUTSIDE RECORDS SUMMARY | 2025-02-14 11:54 | XMS_ITS | Encounter Summary ---
Author Organization [facility] Address [address] [place] [address] Care Team Providers Care Application Counselor Name Role Phone Provider, No Known Primary Care Provider Unavail able Encounter Details Date Type Department Care Team (Late st Contact Info) Description 02/06/2025 Medication Therapy Management [facility] MATERNAL MEDICINE [address] [phone] Jackie Fair MD [address] [place] [address] Social History Tobacco Use Types Packs/Day Years [...] on filedocumented in this encounter Care Teams Application Counselor Relationship Specialty Start Date End Date Provider, No Known [facility] [place] [address] PCP - General 03/09/16 documented as of this encounter
--- OUTSIDE RECORDS SUMMARY | 2025-02-14 11:55 | XMS_ITS | Clinical Summary ---
Author Organization Healthcare Address [address] [place] [address] Care Team Providers Care Senior Windows Systems Engineer Name Role Phone Vladimir Baumann DO Primary [...] 12/03/2012 [facility]-Cervical Cancer Screening 2021 [facility]-HPV/Cotest 2021 [id number]-00 Vaccine (2 - 2023- season) 2024 05/11/2021 [...] age to complete this topic Insurance [employer] MEDICAID Care Teams Senior Windows Systems Engineer Relationship Specialty Start Date End Date Vladimir Baumann DO [address] [place] [address] PCP - General 10/31/20
--- OUTSIDE RECORDS SUMMARY | 2025-02-14 11:55 | XMS_ITS | Clinical Summary ---
Author Organization [facility] Address [address] [place] [address] Care Team Providers Care Ink Printer Name Role Phone Provider, No Known Primary [...] 1 5 Active Insulin Pen Needle (Pen [place]) 31G X 5 MM misc Use 1 each 4 (Four) Times a Day. 100 each 2 5 Active Continuous Glucose Sensor (Dexcom G7 Sensor) misc Use 1 each Every 10 (Ten) Days. 3 each 11 5 Active Active Problems Problem Noted Date Diagnosed Date GDM, class A2 02/12/2025 Assessment & Plan (02/12/2025 2:28 PM EDT): Patient with late diagnosis of gestational diabetes Glucoses reviewed Appears to have mostly elevated fastings Started on Lantus 10q qHS Met with Diabetes Coordinator today for insulin teaching. A Dexcom G7 was placed. We will follow glucoses weekly Recommend continued twice weekly testing Delivery at 37 - 37'6 weeks GA is appropriate Estimated Date of Delivery Comme nts Yes 03/15/2025 Date entered nirali or to episode creation Encounters Date Type Department Care Team Description 02/06/2025 10:00 AM EDT Office Visit [facility] MATERNAL MEDICINE [address] [phone] Jackie Fair MD Unspecified high-risk (Primary Dx); GDM, class A2 02/06/2025 9:48 AM EDT - 02/06/2025 11:59 PM EDT Hospital Encounter [facility] [address] [place] [address] Vern Hernandez, Gestational diabetes mellitus (GDM) in third trimester controlled on oral hypoglycemic drug; , unspecified gestational age Discharge Disposition: Home or Self Care 02/06/2025 Documentation [facility] MATERNAL MEDICINE [address] [phone] Anabell Tejada RN 02/06/2025 Medication Therapy Management [facility] MATERNAL MEDICINE [address] [phone] Jackie Fair MD 02/06/2025 Travel from Last [...] on patient's age to complete this topic Procedures Procedure Name Priority Date/Time Associated Diagnosis Comments [facility] Routine 02/06/2025 11:47 AM EDT Gestational diabetes mellitus (GDM) in third trimester controlled on oral hypoglycemic drug , unspecified gestational age from Last 3 Months Results * [facility] (02/06/2025 11:47 AM EDT) Anatomical Region Laterality Modality Ultrasound 02/06/2025 11:0 2 AM EDT Narrative 02/11/2025 10:06 AM EDT PAT NAME: BERNADETTE ÁLVAREZ [facility] REC#: [id number] DA: [id number] PAT GEND: F PAT TYPE: O EXAM DARRYL: [id number] REF PHYS VERN HERNANDEZ Comparison Studies There [...] EFW (oz) 9 oz EFW by: Hadlock ([id number]) Extended Cav. septi pel. tr 5.7 mm Grocery Stocker 6.6 mm Head / Face / Neck [...] normal IVC: normal 3-vessel view: Appears normal 9-vodjjp-thzghrd view: Appears normal Rt lung: Appears normal [...] 8/8 UA doppler normal Coding ======= Description: 80824-55 Detailed Ultrasound Description: 69387-38 BPP without NST Materials And Corrosion Engineer: Hoda Coats RDMS Physician: Jackie Fair MD, FACOG Electronically signed by: Jcakie Fair MD, FACOG at: 10:06 Procedure Note Jackie Fair MD - 02/11/2025 PAT NAME: BERNADETTE ÁLVAREZ [facility] REC#: [id number] DA: 1990 PAT GEND: F PAT TYPE: O EXAM DARRYL: [id number] REF PHYS VERN HERNANDEZ Comparison Studies There are no relevant prior studies to which this study is beingcompared Patient Status Outpatient Indication ======== GDM, CHTN, hx PTL, obesity Maternal Assessment Dhewth170 cm Height (ft)5 ft Height (in)9 in Xfimdp342 kg Weight (lb)278 lb BMI41.65 kg/m Method ======= Transabdominal ultrasound examination ========= Meyers . Number of fetuses: 1 Dating ====== Method of dating:based on stated AD GA by prior [id number] w + 5 d AD by prior assessment:03/15/2025 Ultrasound examination on:02/06/2025 GA by U/S based upon:AC, BPD, Femur, HC GA by U/S36 w + 4 d AD by U/S:03/02/2025 Assigned:based on stated AD, selected on 02/06/2025 Assigned GA34 w + 5 d Assigned AD:03/15/2025 [id number] d Biometry Standard BPD93.7 mm 38w 1d >99% Hadlock MEQ452.6 mm -/- >99% Shonda HC334.6 mm 38w 2d 93% Hadlock AC340.6 mm 38w 0d >99% Hadlock Femur61.7 mm 32w 0d 2% Hadlock Dlfdrke32.0 mm 32w 4d 13% Shonda HC / AC0.98 EFW2,985 g 36w 6d 91% Hadlock EFW (lb)6 lb EFW (oz)9 oz EFW by:Hadlock ([id number]-FL) Extended Cav. septi pel. tr5.7 mm Vp6.6 mm Head / Face / Neck Cephalic index0.80 46% Nicolaides Extremities / Bony Struc FL / BPD0.66 FL / HC0.18 FL / AC0.18 Other Structures BYN669 bpm General Evaluation Cardiac activity present. FHR [...] arch view:suboptimal SVC:normal IVC:normal 3-vessel view:Appears normal 3-kxiddc-robuoye view:Appears normal Rt lung:Appears normal Lt lung:normal [...] movements 2: tone 2: Amniotic fluid volume /8 Biophysical profile score Maternal Structures Uterus / Cervix Cervix:Visualized Approach:Transabdominal Ovaries / Tubes / Adnexa Rt ovary:Visualized Lt ovary:Visualized Impression Cephalic S>D Normal appearing limited anatomy Normal fluid BPP 8/8 UA doppler normal Coding ======= Description:14553-27 Detailed Ultrasound Description:49532-10 BPP without NST Materials And Corrosion Engineer: Hoda Coats RDMS Physician: Jackie Fair MD, FACOG Electronically signed by: Jackie Fair MD, FACOG at: :06 us Vern Hernandez DO IMG US ORDERABLES Final Res ult from Last 3 Months Insurance [employer] MEDICAID [place] INSURANCE Care Teams Ink Printer Relationship Specialty Start Date End Date Provider, [place] [address] PCP - General 03/09/16
--- OUTSIDE RECORDS SUMMARY | 2025-02-14 11:55 | XMS_ITS | Encounter Summary ---
Author Organization [facility] Address [address] [place] [address] Care Team Providers Care Sports Management Intern Name Role Phone Provider, No Known Primary [...] on filedocumented in this encounter Care Teams Sports Management Intern Relationship Specialty Start Date End Date Provider, No Known [facility] [place] [address] PCP - General 03/09/16 documented as of this encounter
--- OUTSIDE RECORDS SUMMARY | 2025-02-14 11:55 | XMS_ITS | Encounter Summary ---
Author Organization [facility] Address [address] [place] [address] Care Team Providers Care Natural Gas Technician Name Role Phone Provider, No Known Primary Care Provider Unavail able Encounter Details Date Type Department Care Team (Late st Contact Info) Description 02/06/2025 Documentation [facility] MATERNAL MEDICINE [address] [facility] [address] [place] [address] Anabell Tejada RN Social History [...] on filedocumented in this encounter Care Teams Natural Gas Technician Relationship Specialty Start Date End Date Provider, [place] [address] PCP - General 03/09/16 documented as of this encounter
== END 2025-02-12 23:59 | disposition home or self-care (01) ==
LOC: LAB.DROPOF 02-14 11:53
PROVIDERS: PCP Obstetrics & Gynecology; Visit Provider Obstetrics & Gynecology
DX: O10.919 Unspecified pre-existing hypertension complicating pregnancy, unspecified trimester (principal); O47.00 False labor before 37 completed weeks of gestation, unspecified trimester
CPT/HCPCS: 86403

== ENCOUNTER 2025-02-19 12:25 | Inpatient (IN) | payer MEDICAID, SELFPAY ==
--- OUTSIDE RECORDS SUMMARY | 2025-02-06 09:48 | XMS_ITS | Encounter Summary ---
Author Organization [facility] Address [address] [place] [address] Care Team Providers Care Director Of Enrollment Name Role Phone Provider, No Known Primary Care Provider Unavail able Reason for Referral * Diagnostic Imaging (Routine) - Closed Specialty Diagnoses / Procedures Referred By Ashvin beach Referred To Contact Radiology Diagnoses Gestational diabetes mellitus (GDM) in third trimester controlled on oral hypoglycemic drug , unspecified gestational age Procedures [facility] Diagnostic [place] Vern Hernandez DO [address] [place] [address] [place] [id number] Phone: tel: fax: [facility] US PER DIAG CTR [address] [place] [address] Phone: tel: Referral ID Status Reason Start Date Expiration Date Visits Re quested Visits Authorized [id number] Closed 01/30/2025 05/01/2026 1 1 Reason for Visit * Diagnostic Imaging (Routine) - Closed Specialty Diagnoses / Procedures Referred By Ashvin beach Referred To Contact Radiology Diagnoses Gestational diabetes mellitus (GDM) in third trimester controlled on oral hypoglycemic drug , unspecified gestational age Procedures [facility] Diagnostic [place] Vern Hernandez DO [address] [place] [address] [address] [place] [address] Phone: tel: fax: [facility] US PER DIAG [facility] [address] [place] [address] Phone: tel: Referral ID Status Reason Start Date Expiration Date Visits Re quested Visits Authorized [id number] Closed 01/30/2025 05/01/2026 1 1 Encounter Details Date Type Department Care Team (Latest Contact Info) Description 02/06/2025 9:48 AM EDT - 02/06/2025 11:59 PM EDT Hospital Encounter [facility] PER DI[facility] [address] [place] [address] Vern Hernandez, [address] [place] [address] [facility] [address] [place] [address] Gestational diabetes mellitus (GDM) in third trimester [...] mL 1 02/06/2025 Insulin Pen Needle (Pen [place]) 31G X 5 MM misc Use 1 each 4 (Four) Times a Day. 100 each 2 02/06/2025 Vit-Fe Fumarate-FA ( vitamin 27-0.8) 27-0.8 MG tablet tablet Take 1 tablet by mouth Daily. documented as of this encounter Plan of Treatment Not on file documented as of this encounter Procedures Procedure Name Priority Date/Time Associated Diagnosis Comments [facility] Routine 02/06/2025 11:47 AM EDT Gestational diabetes mellitus (GDM) in third trimester controlled on oral hypoglycemic drug , unspecified gestational age documented in this encounter Results * [facility] (02/06/2025 11:47 AM EDT) Anatomical Region Laterality Modality Ultrasound 02/06/2025 11:0 2 AM EDT Narrative 02/11/2025 10:06 AM EDT PAT NAME: HENRI BERNADETTE [facility] REC#: [id number] DA: 1990 PAT GEND: F PAT TYPE: O EXAM DARRYL: [id number] REF PHYS VERN HERNANDEZ Comparison Studies There [...] EFW (oz) 9 oz EFW by: Hadlock ([id number]-YG-UQ-FL) Extended Cav. septi pel. tr 5.7 mm Printing Roller Handler 6.6 mm Head / Face / Neck [...] normal IVC: normal 3-vessel view: Appears normal 6-bpxenv-grbvcou view: Appears normal Rt lung: Appears normal [...] 8/8 UA doppler normal Coding ======= Description: 21733-15 Detailed Ultrasound Description: 54354-04 BPP without NST Washing Machine Assembler: Hoda Coats RDMS Physician: Jackie Fair MD, FACOG Electronically signed by: Jackie Fair MD, FACOG at: 10:06 Procedure Note Jackie Fair MD - 02/11/2025 PAT NAME: BERNADETTE ÁLVAREZ [facility] REC#: [id number] DA: [id number] PAT GEND: F PAT TYPE: O EXAM DARRYL: [id number] REF PHYS VERN HERNANDEZ Comparison Studies There are no relevant prior studies to which this study is beingcompared Patient Status Outpatient Indication ======== GDM, CHTN, hx PTL, obesity Maternal Assessment Cqieck918 cm Height (ft)5 ft Height (in)9 in Yjeviw548 kg Weight (lb)278 lb BMI41.65 kg/m Method ======= Transabdominal ultrasound examination ========= Meyers . Number of fetuses: 1 Dating ====== Method of dating:based on stated AD GA by prior vjhqqystlq80 w + 5 d AD by prior assessment:03/15/2025 Ultrasound examination on:02/06/2025 GA by U/S based upon:AC, BPD, Femur, HC GA by U/S36 w + 4 d AD by U/S:03/02/2025 Assigned:based on stated AD, selected on 02/06/2025 Assigned GA34 w + 5 d Assigned AD:03/15/2025 gipkuc968 d Biometry Standard BPD93.7 mm 38w 1d >99% Hadlock UUX553.6 mm -/- >99% Shonda HC334.6 mm 38w 2d 93% Hadlock AC340.6 mm 38w 0d >99% Hadlock Femur61.7 mm 32w 0d 2% Hadlock Pnpwsps76.0 mm 32w 4d 13% Shonda HC / AC0.98 EFW2,985 g 36w 6d 91% Hadlock EFW (lb)6 lb EFW (oz)9 oz EFW by:Hadlock (YRN-UD-MR-FL) Extended Cav. septi pel. tr5.7 mm Vp6.6 mm Head / Face / Neck Cephalic index0.80 46% Nicolaides Extremities / Bony Struc FL / BPD0.66 FL / HC0.18 FL / AC0.18 Other Structures IIN875 bpm General Evaluation Cardiac activity present. FHR [...] arch view:suboptimal SVC:normal IVC:normal 3-vessel view:Appears normal 9-boyryh-godmnwx view:Appears normal Rt lung:Appears normal Lt lung:normal [...] cm/s Umbilical A S / D2.76 66% [place] Umbilical A HR159 bpm Biophysical Profile 2: breathing movements 2: Gross body movements 2: tone 2: Amniotic fluid volume 8/8 Biophysical profile score Maternal Structures Uterus / Cervix Cervix:Visualized Approach:Transabdominal Ovaries / Tubes / Adnexa Rt ovary:Visualized Lt ovary:Visualized Impression Cephalic S>D Normal appearing limited anatomy Normal fluid BPP 8/8 UA doppler normal Coding ======= Description:64417-16 Detailed Ultrasound Description:95593-64 BPP without NST Washing Machine Assembler: Hoda Coats RDMS Physician: Jackie Fair MD, FACOG Electronically signed by: Jackie Fair MD, FACOG at: 2510:06 us Vern Hernandez DO G US ORDERABLES Final Res ult documented in this encounter Visit Diagnoses Diagnosis Gestational diabetes mellitus (GDM) in third trimester controlled on oral hypoglycemic drug , unspecified gestational age documented in this encounter Care Teams Director Of Enrollment Relationship Specialty Start Date End Date Provider, [place] [address] PCP - General 03/09/16 documented as of this encounter
--- OUTSIDE RECORDS SUMMARY | 2025-02-06 10:00 | XMS_ITS | Encounter Summary ---
Author Organization [facility] Address [address] [place] [address] Care Team Providers Care Plow Holder Name Role Phone Provider, No Known Primary Care Provider Unavail able Reason for Visit * Reason Comments GDM with hypoglycemia Encounter Details Date Type Department Care Team (Late st Contact Info) Description 02/06/2025 10:00 AM EDT Office Visit [facility] MATERNAL MEDICINE [address] [phone] Jackie Greene MD 1700 [facility] [address] [place] [phone] Unspecified high-risk (Primary Dx); GDM, class A2 [...] under imaging tab of patient chart in [facility] (Viewpoint report). Jackie Greene MD * [...] Rfl: Continuous Glucose Transmitter (Dexcom G6 Transmitter) [facility], , Disp: , Rfl: fluticasone (FLONASE) 50 MCG/ACT nasal spray, As Needed., Disp: , Rfl: Vit-Fe Fumarate-FA ( vitamin 27-0.8) 27-0.8 MG tablet tablet, Take 1 tablet by mouth Daily., Disp: , Rfl: Continuous Glucose Sensor (Dexcom G7 Sensor) [facility], Use 1 each Every 10 (Ten) Days., Disp: 3 each, Rfl: 11 Insulin Glargine (LANTUS SOLOSTAR) 100 UNIT/ML injection pen, Inject 10 Units under the skin into the appropriate area as directed Every Night., Disp: 15 mL, Rfl: 1 Insulin Pen Needle (Pen [place]) 31G X 5 MM [facility], Use 1 each 4 (Four) Times a [...] CVS. Jackie Greene MD FACOG Maternal Medicine, [facility] 02/06/2025 documented in this encounter Plan of Treatment Not on file documented as of this encounter Visit Diagnoses Diagnosis Unspecified high-risk - Primary GDM, class A2 Abnormal maternal glucose tolerance, complicating , childbirth, or the puerperium, unspecified as to episode of care documented in this encounter Care Teams Plow Holder Relationship Specialty Start Date End Date Provider, [place] [address] PCP - General 03/09/16 documented as of this encounter
--- OUTSIDE RECORDS SUMMARY | 2025-02-19 07:47 | XMS_ITS | Encounter Summary ---
Author Organization [facility] Address [address] [place] [address] Care Team Providers Care Motor Winder Name Role Phone Provider, No Known Primary Care Provider Unavail able Encounter Details Date Type Department Care Team (Late st Contact Info) Description 02/06/2025 Documentation [facility] MEDICAL [facility] MATERNAL MEDICINE [address] [facility] [address] [place] [address] Anabell eTjada RN Social History Tobacco Use Types Packs/Day [...] on filedocumented in this encounter Care Teams Motor Winder Relationship Specialty Start Date End Date Provider, [place] [address] PCP - General 03/09/16 documented as of this encounter
--- OUTSIDE RECORDS SUMMARY | 2025-02-19 07:47 | XMS_ITS | Encounter Summary ---
Author Organization [facility] Address [address] [place] [address] Care Team Providers Care Consulting Sme Name Role Phone Provider, No Known Primary Care Provider Unavail able Encounter Details Date Type Department Care Team (Late st Contact Info) Description 02/06/2025 Medication Therapy Management [facility] [place] [facility] MATERNAL MEDICINE [address] [phone] Jackie Fair MD [address] [place] [address] Social History Tobacco Use Types Packs/Day Years [...] on filedocumented in this encounter Care Teams Consulting Sme Relationship Specialty Start Date End Date Provider, No Known [facility] [place] [address] PCP - General 03/09/16 documented as of this encounter
--- OUTSIDE RECORDS SUMMARY | 2025-02-19 07:48 | XMS_ITS | Clinical Summary ---
Author Organization [facility] Address [address] [place] [address] Care Team Providers Care Master Tax Advisor Name Role Phone Provider, No Known Primary [...] 1 5 Active Insulin Pen Needle (Pen [place]) 31G X 5 MM misc Use 1 [...] Description 02/06/2025 10:00 AM EDT Office Visit [facility] MATERNAL MEDICINE [address] [phone] Jackie Fair MD Unspecified high-risk (Primary Dx); GDM, class A2 02/06/2025 9:48 AM EDT - 02/06/2025 11:59 PM EDT Hospital Encounter [facility] [address] [place] [address] Vern Hernandez, Gestational diabetes mellitus (GDM) in third trimester controlled on oral hypoglycemic drug; , unspecified gestational age Discharge Disposition: Home or Self Care 02/06/2025 Documentation [facility] MATERNAL MEDICINE [address] [phone] Anabell Tejada RN 02/06/2025 Medication Therapy Management [facility] MATERNAL MEDICINE [address] [phone] Jackie Fair MD 02/06/2025 Travel from Last [...] Priority Date/Time Associated Diagnosis Comments [facility] Routine 02/06/2025 11:47 AM EDT Gestational diabetes mellitus (GDM) in third trimester controlled on oral hypoglycemic drug , unspecified gestational age from Last 3 Months Results * [facility] (02/06/2025 11:47 AM EDT) Anatomical Region Laterality Modality Ultrasound 02/06/2025 11:0 2 AM EDT Narrative 02/11/2025 10:06 AM EDT PAT NAME: BERNADETTE ÁLVAREZ [facility] REC#: [id number] DA: [id number] PAT GEND: F PAT TYPE: O EXAM DARRYL: [id number] REF PHYS VERN HERNANDEZ Comparison Studies There [...] by U/S 36 w + 4 d DA by U/S: 03/02/2025 Assigned: based on stated [...] EFW (oz) 9 oz EFW by: Hadlock ([id number]) Extended Cav. septi pel. tr 5.7 mm Cleaner 6.6 mm Head / Face / Neck [...] normal IVC: normal 3-vessel view: Appears normal 8-qbvcug-itpoflh view: Appears normal Rt lung: Appears normal [...] 8/8 UA doppler normal Coding ======= Description: 39933-07 Detailed Ultrasound Description: 48491-59 BPP without NST Patch Press Operator: Hoda Coats RDMS Physician: Jackie Fair MD, FACOG Electronically signed by: Jackie Fair MD, FACOG at: 10:06 Procedure Note Jackie Fair MD - 02/11/2025 PAT NAME: BERNADETTE ÁLVAREZ [facility] REC#: [id number] DA: 1990 PAT GEND: F PAT TYPE: O EXAM DARRYL: [id number] REF PHYS VERN HERNANDEZ Comparison Studies There are no relevant prior studies to which this study is beingcompared Patient Status Outpatient Indication ======== GDM, CHTN, hx PTL, obesity Maternal Assessment Uahpqc524 cm Height (ft)5 ft Height (in)9 in Qmpmbq657 kg Weight (lb)278 lb BMI41.65 kg/m Method ======= Transabdominal ultrasound examination ========= Meyers . Number of fetuses: 1 Dating ====== Method of dating:based on stated AD GA by prior [id number] w + 5 d AD by prior assessment:03/15/2025 Ultrasound examination on:02/06/2025 GA by U/S based upon:AC, BPD, Femur, HC GA by U/S36 w + 4 d AD by U/S:03/02/2025 Assigned:based on stated AD, selected on 02/06/2025 Assigned GA34 w + 5 d Assigned AD:03/15/2025 gewqni933 d Biometry Standard BPD93.7 mm 38w 1d >99% Hadlock SRE584.6 mm -/- >99% Shonda HC334.6 mm 38w 2d 93% Hadlock AC340.6 mm 38w 0d >99% Hadlock Femur61.7 mm 32w 0d 2% Hadlock Ejatgtl14.0 mm 32w 4d 13% Shonda HC / AC0.98 EFW2,985 g 36w 6d 91% Hadlock EFW (lb)6 lb EFW (oz)9 oz EFW by:Hadlock (ZZV-[id number]-FL) Extended Cav. septi pel. tr5.7 mm Vp6.6 mm Head / Face / Neck Cephalic index0.80 46% Nicolaides Extremities / Bony Struc FL / BPD0.66 FL / HC0.18 FL / AC0.18 Other Structures CMY465 bpm General Evaluation Cardiac activity present. FHR [...] arch view:suboptimal SVC:normal IVC:normal 3-vessel view:Appears normal 5-fxhggb-mqtvjco view:Appears normal Rt lung:Appears normal Lt lung:normal [...] BPP 8/8 UA doppler normal Coding ======= Description:17321-78 Detailed Ultrasound Description:86806-89 BPP without NST Patch Press Operator: Hoda Coats RDMS Physician: Jackie Fair MD, FACOG Electronically signed by: Jackie Fair MD, FACOG at: :06 us Vern Hernandez DO IMG US ORDERABLES Final Res ult from Last 3 Months Insurance [employer] MEDICAID [place] INSURANCE Care Teams Master Tax Advisor Relationship Specialty Start Date End Date Provider, [place] [address] PCP - General 03/09/16
--- OUTSIDE RECORDS SUMMARY | 2025-02-19 07:48 | XMS_ITS | Encounter Summary ---
Author Organization [facility] Address [address] [place] [address] Care Team Providers Care Research Agricultural Engineer Name Role Phone Provider, No Known Primary [...] on filedocumented in this encounter Care Teams Research Agricultural Engineer Relationship Specialty Start Date End Date Provider, No Known [facility] [place] [place] [address] PCP - General 03/09/16 documented as of this encounter
--- OUTSIDE RECORDS SUMMARY | 2025-02-19 07:48 | XMS_ITS | Clinical Summary ---
Author Organization [facility] Address [address] [place] [address] Care Team Providers Care Patient Services Technician Name Role Phone Vladimir Baumann DO [...] 12/03/2012 [facility]-Cervical Cancer Screening 2021 [facility]-HPV/Cotest 2021 [id number] Vaccine (2 - 2023- season) 2024 05/11/2021 [...] age to complete this topic Insurance [employer] MEDICAID Care Teams Patient Services Technician Relationship Specialty Start Date End Date Vladimir Baumann DO [address] [place] [address] PCP - General 10/31/20
--- NOTE | 2025-02-19 08:00 | US_ITS ---
PROCEDURE: US OB BIOPHYSICAL PROFILE CLINICAL INDICATION: Needs for LGA and CHTN COMPARISON: US US OB <= 14 WEEKS FETUS from 07/27/2024 US OB /MATERNAL DETAIL from 10/25/2024 US OB FOLLOW UP from 10/30/2024 US OB FOLLOW UP from 11/19/2024 US OB TRANSVAGINAL from 11/19/2024 US TRANSVAGINAL from 12/25/2024 [facility] OB FOLLOW UP from 12/25/2024 US OB TRANSVAGINAL from 12/27/2024 US OB BIOPHYSICAL PROFILE from 01/22/2025 [facility] OB BIOPHYSICAL PROFILE from 02/04/2025 FINDINGS: Transabdominal sonographic images of the uterus were obtained. From her established due date she is 36weeks 4days. The following parameters are obtained: Viable Fetus in the cephalic presentation with a lateral placenta grade 2. Average ultrasound age is 38weeks 2days Estimated weight 3,447g, 7 lb 10 oz Measurements: heart Rate = 149bpm BPD = 40weeks 1day,> 98 percentile HC = 39weeks 1day, 80 percentile AC = 39weeks 4days, 98 percentile FL = 33weeks 6days, <2 percentile HC/AC is 0.95 FL/BPD is 0.67 FL/AC is 0.18 91 percentile Amniotic fluid index: 9.13cm, MVP 6.32 cm Qualitative AFV:2 Breathing movements: 2 Gross Body Movements: 2 Tone: 2 Biophysical profile score: 8 No obvious anomalies evident.Kidneys, stomach, bladder, four-chamber heart, three-vessel cord appear normal. IMPRESSION: 1. Viable fetus in the cephalic presentation with a lateral placenta grade 2. 2. The fluid is within normal limits with an amniotic fluid index 9.13 cm, MVP 6.32 cm. 3. Biophysical profile is 8/8 with good breathing movement and movement seen. 4. There continues to be accelerated growth with the head and abdominal circumference being 3 weeks ahead. 5. Limited anatomical scan appears normal. Dictated by: Alverto Mast MD 02/19/2025 17:28 Alverto Mast MD in OV 02/19/2025 17:28
[2025-02-19 10:14] VITALS: BMI 40.3
[2025-02-19 10:25] VITALS: BP 144/96; PULSE 113; RESP 17; TEMP 37.1; O2SAT 97; BMI 40.3
[2025-02-19 12:20] LABS: Hematocrit 34.5 % (37.0-47.0); Hemoglobin 11.7 g/dL (12.2-16.2); Immature Granulocytes % 0.6 %; Mean Corpuscular HGB Conc 33.9 g/dL (31.8-35.4); Mean Corpuscular Hemoglobin 29.5 pg (27.0-31.2); Mean Corpuscular Volume 87.1 fl (81-99); Nucleated Red Blood Cells % 0 %; Platelet Count 184 K/mm3 (142-424); Red Blood Count 3.96 M/mm3 (4.20-5.40); Red Cell Distribution Width-SD 41.7 fL; White Blood Count 8.2 K/mm3 (4.8-10.8)
[2025-02-19 12:21] LABS: Alanine Aminotransferase 33 U/L (12-78); Albumin Level 3.4 g/dl (3.5-5.0); Albumin/Globulin Ratio 1.1 (1.1-1.8); Alkaline Phosphatase 91 U/L (38-126); Anion Gap 12.1 mEq/L (5-15); Aspartate Amino Transferase 28 U/L (14-36); Bilirubin,Total 0.4 mg/dl (0.2-1.3); Blood Urea Nitrogen 9 mg/dl (7-17); Calcium 9.1 mg/dl (8.4-10.2); Carbon Dioxide 19 mmol/L (22.0-30.0); Chloride 108 mmol/L (98-107); Creatinine Clearance Estimated 201 mL/min (50-200); Creatinine,Serum 0.80 mg/dl (0.52-1.04); Estimated Glomerular Filt Rate 83 ml/min (>60); GFR (African American) 100 ML/MIN (>60); Globulin 3.0 g/dL (1.3-3.2); Glucose 78 mg/dl (74-100); Potassium 4.1 mmoL/L (3.5-5.1); Sodium 135 mmol/L (136-145); Total Protein,Serum 6.4 g/dl (6.3-8.2)
[2025-02-19] MEDS: OXYTOCIN/RINGERS LACTATE 30 UNITS/500 ML BAG IV (12:56)
[2025-02-19] MEDS: DEXTROSE 5%-LACTATED RINGERS 1,000 ML 125 ML IV (12:59)
--- NOTE | 2025-02-19 13:05 | EXP.HP ---
History of Present Illness *Admission Date: 02/19/25 *Reason for visit:: Active labor *History of present illness: Bernadette Soto is a 34-year-old -1-1-3 who presented to my office with regular painful contractions. Reports that contractions have been on and off all weekend but became more consistent this morning. Was sent to labor and delivery from the office where she had a nonreactive NST. She has complained of decreased movement for the last week. Her blood pressure is slightly elevated today. In labor and delivery she also had an elevated blood pressure. Not only is she having regular painful contractions that she rates a 7 out of 10 her cervix is 6 cm dilated. She was admitted to labor and delivery for labor monitoring and delivery. She has an AD of 03/15/2025 based on 5 and 7-week ultrasound. This has been complicated by GDMA2, obesity, and chronic hypertension. Her diabetes is controlled with 10 units of Lantus at night and she is not on any blood pressure medications A+, antibody negative, rubella immune, hepatitis B negative, hepatitis C negative, RPR negative, HIV negative 1 hour GTT: 120. Accu-Cheks were initiated secondary to macrosomia and glucoses noted to be elevated, diabetes was diagnosed GBS negative PFSH PFS Disclaimer: The information contained in this section may have been updated after the patient was seen, as this information can be updated by other users. Medical History Sinusitis Fever Problematic vaginal discharge depression Sinusitis Bronchitis Viral syndrome History of Asthma Surgical History History of surgery on arm Family History Other Diabetes Stroke Social History Smoking Status: Never smoker alcohol intake: never substance use type: denies use current occupational status: employed Travel in the last 8 weeks?: None Have you lived/traveled outside [place] in past 30 days?: No Contact w/someone who lives/traveled outside US past 30 days?: No Exposure to someone with infectious disease in past 14 days?: No Do you have a fever (greater than 100.4 F or 38 C)?: No Have you tested positive for COVID-19?: No Exposed to someone with COVID-19 in past 14 days?: No Do you have a sore throat?: No Do you have a cough?: No Do you have any weakness?: No Do you have any diarrhea?: No Are you experiencing any unusual bleeding?: No Do you have any muscle aches/pain?: No Do you have any abdominal pain?: No Are you experiencing loss of taste or smell?: No Other Medical History Have you received the Flu Vaccine for this season: No Have you received the Pneumonia Vaccine: No Review of Systems Review of Systems Review of systems (narrative): Review of Systems Constitutional: Denies fever, chills, and sweats Eyes: Denies vision change/ pain Respiratory: Denies cough and shortness of breath Cardiovascular: Denies chest pain and lightheadedness Gastrointestinal: Admits abdominal pain with contractions. Denies nausea, vomiting. Genitourinary: Denies dysuria and incontinence Musculoskeletal: Denies shoulder pain and back pain Neurological: Denies change in speech or headaches Meds Home Medications and Allergies Home Medications ?Medication ?Instructions ?Recorded ?Confirmed ?Type vits no.126-ferrous fum 1 tab PO DAILY 07/17/24 02/19/25 History 28 mg iron-folic acid 800 mcg tablet (Classic ) albuterol sulfate 90 mcg/actuation 2 puff inhalation Q4-6H PRN 09/05/24 02/19/25 Rx aerosol inhaler shortness of breath or wheezing #8.5 grams fluticasone propionate 50 2 spray intranasal DAILY #16 grams 11/15/24 02/19/25 Rx mcg/actuation nasal spray,suspension (Flonase Allergy Relief) blood-glucose sensor (Dexcom G6 #1 ea 02/19/25 02/19/25 History Sensor device) insulin glargine 100 unit/mL (3 unit SQ 02/19/25 02/19/25 History mL) subcutaneous pen (Lantus Solostar U-100 Insulin) pen needle, diabetic 31 gauge x #1,200 ea 02/19/25 02/19/25 History 3/16 (Ultra-Fine Pen Needle) New Prescriptions to Start Prescriptions: Allergies Allergy/AdvReac Type Severity Reaction Status Date / Time amoxicillin (From AUGMENTIN) Allergy Unknown Rash Verified 02/19/25 09:05 clavulanic acid (From Allergy Unknown Rash Verified 02/19/25 09:05 AUGMENTIN) Exam Data for Last 24 hours Vital signs and Labs for Last 24 Hours: Temp Pulse Resp BP Pulse Ox O2 Del Method 98.7 F 113 H 17 144/96 H 97 Room Air 02/19/25 10:02/19/25 10:02/19/25 10:02/19/25 10:02/19/25 10:02/19/25 10:25 Laboratory Results - last 24 hr 02/19/25 11:50: WBC 8.2, RBC 3.96 L, Hgb 11.7 L, Hct 34.5 L, MCV 87.1, MCH 29.5, MCHC 33.9, RDW 13.2, Plt Count 184, MPV 12.0 H, Neut % (Auto) 77.8, Lymph % (Auto) 17.1, Rankin % (Auto) 4.1, Eos % (Auto) 0.2, Baso % (Auto) 0.2, Neut # (Auto) 6.4, Lymph # (Auto) 1.4, Rankin # (Auto) 0.3, Eos # (Auto) 0.0, Baso # (Auto) 0.0, Sodium 135 L, Potassium 4.1, Chloride 108 H, Carbon Dioxide 19 L, Anion Gap 12.1, BUN 9, Creatinine 0.80, Estimated Creat Clear 201, Estimated GFR 83, Est GFR ( Amer) 100, Glucose 78, Calcium 9.1, Total Bilirubin 0.4, AST 28, ALT 33, Alkaline Phosphatase 91, Total Protein 6.4, Albumin 3.4 L, Globulin 3.0, Albumin/Globulin Ratio 1.1 I & O for Last 24 hours: Intake & Output 02/16/25 02/17/25 02/18/25 02/19/25 23:59 23:59 23:59 23:59 Weight 281 lb Narrative: General: patient is alert oriented in no acute distress and responds appropriately to questions. HEENT: NCAT, EOMI, moist mucous membranes, neck supple with full ROM Cardiovascular: RRR +S1/S2, no murmurs or rubs Pulmonary: Clear to auscultation bilaterally, nonlabored breathing, symmetric chest rise Abdominal: Gravid abdomen appropriate for gestation. No guarding, rebound, or tenderness noted. Extremities: trace edema, no tenderness or cyanosis noted Skin: Normal turgor, intact, warm. Negative for erythema, pallor, petechia, or lesions Neurologic: Negative for sensory or motor deficit Psychiatric: Normal affect, normal thought process, good judgment and insight, no depression or anxious mood appreciated. *Routine HEENT Exam Head: Present normocephalic and atraumatic Eye: Present EOMI, PERRL and normal accommodation; Absent conjunctival icterus, scleral injection, nystagmus or exophthalmos ENT: Present mucous membranes moist *Routine Respiratory Exam Respiratory: Present CTA bilaterally, normal respiratory effort, able to speak in complete sentences and symmetric chest movement; Absent accessory muscle use, decreased breath sounds, rales, respiratory distress, wheezes, distant breath sounds or diminished air movement *Routine Cardiovascular Exam Cardiovascular: Present RRR, Normal S1 and Normal S2; Absent murmur or gallop *Routine Abdominal Exam Abdominal: Present soft and normoactive bowel sounds; Absent tenderness, distended, rebound or guarding *Routine Rectal Exam Rectal:: deferred *Routine Genitalia Exam Genitalia:: normal female Assessment and Plan *Assessment and plan (1) Gestational diabetes: Status: Acute Category: Medical Code(s): O24.419 - Gestational diabetes mellitus in , unspecified control (2) Chronic hypertension affecting : Status: Acute Category: Medical Code(s): O10.919 - Unspecified pre-existing hypertension complicating , unspecified trimester (3) MDD (major depressive disorder): Status: Acute Category: Medical Code(s): F32.9 - Major depressive disorder, single episode, unspecified (4) Anxiety: Status: Acute Category: Medical Code(s): F41.9 - Anxiety disorder, unspecified (5) Obesity (BMI 30-39.9): Status: Acute Category: Medical Code(s): E66.9 - Obesity, unspecified (6) Hypertension: Status: Acute Category: Medical Code(s): I10 - Essential (primary) hypertension (7) Active labor: Status: Acute Category: Medical (8) labor in third trimester with delivery: Status: Acute Category: Medical Code(s): O60.14X0 - labor third trimester with delivery third trimester, not applicable or unspecified (9) Non-reactive NST (non-stress test): Status: Acute Category: Medical Code(s): O28.8 - Other abnormal findings on screening of mother (10) Decreased movement affecting management of in third trimester: Status: Acute Category: Medical Code(s): O36.8130 - Decreased movements, third trimester, not applicable or unspecified Plan # labor #36 weeks 4 days gestation - Nonreactive NST in the office - Decreased movement x 1 week - Monitor vitals - Admit to L&D for labor monitoring and delivery - Plan for augmentation of labor with AROM and pitocin if required. - External FHR and TOCO monitor - Exam on admission: /-2 - GBS neg/ Blood type: A+ - Hemoglobin: 11.7, Plt: 184 - Plan for epidural anesthesia - Anticipate vaginal delivery of female #Gestational diabetes - Discontinue all Accu-Cheks and insulin - Glucose checks every 2 hours and prior to pushing/stage II of labor - Recommend 6-week 2-hour 75 g glucose challenge test - Ultrasound from 02/06/2025 at 34 weeks and 5 days gestation: EFW: 2985 g, 6 pounds 9 ounces, 91st percentile. BPD: Greater than 99%, HC: 93%, AC: Greater than 99%, FL: 2% #Chronic hypertension - Continue to monitor her blood pressures closely in labor #Obesity - BMI: 40. Complicates all aspects of care
[2025-02-19] MEDS: OXYTOCIN/RINGERS LACTATE 30 UNITS/500 ML BAG 999 UNITS IV (14:44)
--- NOTE | 2025-02-19 15:33 | P.PCN_ITS ---
Delivery Note Delivery Date:: 02/19/25 Delivery Time:: 14:41 Was labor medically induced?: No Induction method: none Gestational age (weeks): 36 delivered prior to 39 weeks?: Yes Justification for early elective delivery:: Active Labor, Benign Hypertension, Diabetes Mellitus and Decreased Movements Infant Gender: Female at 1 minute: 7 at 5 minutes: 8 Delivery Procedure:: Preoperative diagnosis: 1. at 36w4d completed this weeks gestation, vertex 2. Rh positive 3. GBS negative 4. Chronic Hypertension 5. Gestational diabetes, on insulin 6. Active Labor Postoperative diagnosis: 1. at 36w4d completed this weeks gestation, vertex 2. Rh positive 3. GBS negative 4. Chronic Hypertension 5. Gestational diabetes, on insulin 6. Active Labor EBL: 100mL Specimen: 1. Cord blood 2. Venous cord gas pH: 7.487, base excess: -2.3 3. Arterial cord gas pH: 7.36, base excess: -2.9 4. Placenta Findings: 1. Liveborn viable female : Delilah Lobato. Apgars 7/8 at 1 and 5 minutes respectively. Weight: 8lbs 0oz. 3621g Complications: None Procedure: Nonoperative spontaneous vaginal delivery Bernadette Soto is a pleasant 34-year-old who presented to my office with a nonreactive NST and was found to be having regular painful contractions. In the office she was found to be 5 cm and sent to labor and delivery for evaluation when she got to labor and delivery she was noted to be 6 cm with regular painful contractions that she rated a 7 out of 10. She was admitted to labor and delivery and AROM was performed. Clear fluid noted. The patient progressed rapidly and delivered a live viable female infant over intact perineum at 1441. No shoulder dystocia was present, no nuchal cord present. The infant was bulb suction and was crying following delivery. 60 seconds was appreciated for delayed cord clamping and the cord was doubly clamped and cut by the FOB. was taken to the warmer for evaluation by the healthcare or medical and then placed back in [facility] with mom. The perineum, vaginal spear, and cervix were thoroughly inspected and noted to be hemostatic. There was a small ZELALEM clitoral abrasion that was noted, not requiring repair. All counts were correct. Bernadette and infant were doing well and bonding when I left the [facility] room Placental Delivery Description: Spontaneous
[2025-02-19] MEDS: IBUPROFEN 400 MG TABLET 800 MG PO (20:25)
[2025-02-20 06:20] LABS: Hematocrit 31.4 % (37.0-47.0); Immature Granulocytes % 0.5 %; Mean Corpuscular HGB Conc 33.4 g/dL (31.8-35.4); Mean Corpuscular Hemoglobin 29.3 pg (27.0-31.2); Mean Corpuscular Volume 87.7 fl (81-99); Nucleated Red Blood Cells % 0 %; Platelet Count 142 K/mm3 (142-424); Red Blood Count 3.58 M/mm3 (4.20-5.40); Red Cell Distribution Width-SD 42.2 fL; White Blood Count 8.0 K/mm3 (4.8-10.8)
[2025-02-20 06:26] LABS: Hemoglobin 10.7 g/dL (12.2-16.2)
--- NOTE | 2025-02-20 08:22 | EXP.DC.SUM ---
General Admission date:: 02/19/25 Discharge date: 02/20/25 HPI HPI HPI: Bernadette Soto is a 34-year-old -1-1-3 who presented to my office with regular painful contractions. Reports that contractions have been on and off all weekend but became more consistent this morning. Was sent to labor and delivery from the office where she had a nonreactive NST. She has complained of decreased movement for the last week. Her blood pressure is slightly elevated today. In labor and delivery she also had an elevated blood pressure. Not only is she having regular painful contractions that she rates a 7 out of 10 her cervix is 6 cm dilated. She was admitted to labor and delivery for labor monitoring and delivery. She has an AD of 03/15/2025 based on 5 and 7-week ultrasound. This has been complicated by GDMA2, obesity, and chronic hypertension. Her diabetes is controlled with 10 units of Lantus at night and she is not on any blood pressure medications A+, antibody negative, rubella immune, hepatitis B negative, hepatitis C negative, RPR negative, HIV negative 1 hour GTT: 120. Accu-Cheks were initiated secondary to macrosomia and glucoses noted to be elevated, diabetes was diagnosed GBS negative Hospital Course Hospital Course Hospital Course: Bernadette Soto is a 34-year-old day #1 from a normal spontaneous vaginal delivery over intact perineum at 36 weeks and 4 days gestation she came in in active labor. Her has been complicated by GDMA2, obesity, and chronic hypertension. She has had a routine delivery and course thus far. She delivered a live viable female : Delilah Lobato. was delivered on 02/19/2025 at 1441 Apgars were 7 and 8 at 1 and 5 minutes respectively. Infant weighed 8 pounds 0 ounces, 3621 g. She has done well and has remained afebrile with her at her hospitalization. She is eating and drinking and ambulating. She is both breast and bottle feeding. Her lochia is normal. She has A Rh+ blood, she is rubella immune and was group B streptococcus negative. Given she has a history of chronic hypertension her blood pressures have been monitored closely within normal limits. While she is being discharged today she will remain in the hospital for a TLC bed for care and she will check her blood pressures routinely 2-3 times per day. Discussed with the patient that the most of the time for blood pressure elevation was within 72 hours after delivery. Routine discharge instructions reviewed with the patient in detail and she voiced understanding She will be discharged home to follow-up with Dr. Hernandez in 2 weeks time. She will continue with her vitamins. She will take ibuprofen as well. She was given the usual instructions with respect to limiting her activity, driving and sexual activity. She was given instructions with respect to wound care. Her condition on discharge is stable and improved. Exam Data for Last 24 hours Vital signs and Labs for Last 24 Hours: Temp Pulse Resp BP Pulse Ox O2 Del Method 98.7 F 113 H 17 144/96 H 97 Room Air 02/19/25 10:02/19/25 10:02/19/25 10:02/19/25 10:02/19/25 10:02/19/25 10:25 Laboratory Results - last 24 hr 02/19/25 11:50: WBC 8.2, RBC 3.96 L, Hgb 11.7 L, Hct 34.5 L, MCV 87.1, MCH 29.5, MCHC 33.9, RDW 13.2, Plt Count 184, MPV 12.0 H, Neut % (Auto) 77.8, Lymph % (Auto) 17.1, [place] % (Auto) 4.1, Eos % (Auto) 0.2, Baso % (Auto) 0.2, Neut # (Auto) 6.4, Lymph # (Auto) 1.4, [place] # (Auto) 0.3, Eos # (Auto) 0.0, Baso # (Auto) 0.0, Sodium 135 L, Potassium 4.1, Chloride 108 H, Carbon Dioxide 19 L, Anion Gap 12.1, BUN 9, Creatinine 0.80, Estimated Creat Clear 201, Estimated GFR 83, Est GFR ( Amer) 100, Glucose 78, Calcium 9.1, Total Bilirubin 0.4, AST 28, ALT 33, Alkaline Phosphatase 91, Total Protein 6.4, Albumin 3.4 L, Globulin 3.0, Albumin/Globulin Ratio 1.1, Blood Type A Positive, Antibody Screen Negative, Crossmatch (AHG) See Detail 02/19/25 14:45: Cord ABG pH 7.36 02/19/25 14:48: Cord ABG pH 7.49 H 02/20/25 05:25: WBC 8.0, RBC 3.58 L, Hgb 10.7 L, Hct 31.4 L, MCV 87.7, MCH 29.3, MCHC 33.4, RDW 13.2, Plt Count 142, MPV 11.7 H, Neut % (Auto) 71.9, Lymph % (Auto) 21.2, [place] % (Auto) 5.6, Eos % (Auto) 0.6, Baso % (Auto) 0.2, Neut # (Auto) 5.8, Lymph # (Auto) 1.7, [place] # (Auto) 0.5, Eos # (Auto) 0.1, Baso # (Auto) 0.0 I & O for Last 24 hours: Intake & Output 02/17/25 02/18/25 02/19/25 02/20/25 23:59 23:59 23:59 23:59 Intake Total 992.417 / 992.417 Balance 992.417 / 992.417 Weight 281 lb Constitutional Constitutional: no acute distress *Routine HEENT Exam Head: Present normocephalic Eye: Absent conjunctival icterus or scleral injection ENT: Present mucous membranes moist *Routine Neck Exam Neck: Present supple *Routine Respiratory Exam Respiratory: Present CTA bilaterally *Routine Cardiovascular Exam Cardiovascular: Present RRR *Routine Abdominal Exam Abdominal: Present soft; Absent tenderness or distended *Routine Rectal Exam Patient deferred: visual exam and digital exam *Routine Exam Patient deferred: external exam Comments: Fundus firm below umbilicus *Routine Extremities Exam Extremities: Present edema *Routine Neurological Exam Neurological: Present alert and oriented X3 Routine Psychiatric Exam Psychiatric: Present normal affect; Absent depressed Results Data Completed and Pending Labs on day of discharge: Labs from last 24 hours 02/20/25 02/19/25 02/19/25 05:25 14:48 14:45 WBC 8.0 RBC 3.58 L Hgb 10.7 L Hct 31.4 L MCV 87.7 MCH 29.3 MCHC 33.4 RDW 13.2 Plt Count 142 MPV 11.7 H Neut % (Auto) 71.9 Lymph % (Auto) 21.2 [place] % (Auto) 5.6 Eos % (Auto) 0.6 Baso % (Auto) 0.2 Neut # (Auto) 5.8 Lymph # (Auto) 1.7 [place] # (Auto) 0.5 Eos # (Auto) 0.1 Baso # (Auto) 0.0 Cord ABG pH 7.49 H 7.36 Sodium Potassium Chloride Carbon Dioxide Anion Gap BUN Creatinine Estimated Creat Clear Estimated GFR Est GFR ( Amer) Glucose Calcium Total Bilirubin AST ALT Alkaline Phosphatase Total Protein Albumin Globulin Albumin/Globulin Ratio Blood Type Antibody Screen Crossmatch ([facility]) 02/19/25 11:50 WBC 8.2 RBC 3.96 L Hgb 11.7 L Hct 34.5 L MCV 87.1 MCH 29.5 MCHC 33.9 RDW 13.2 Plt Count 184 MPV 12.0 H Neut % (Auto) 77.8 Lymph % (Auto) 17.1 [place] % (Auto) 4.1 Eos % (Auto) 0.2 Baso % (Auto) 0.2 Neut # (Auto) 6.4 Lymph # (Auto) 1.4 [place] # (Auto) 0.3 Eos # (Auto) 0.0 Baso # (Auto) 0.0 Cord ABG pH Sodium 135 L Potassium 4.1 Chloride 108 H Carbon Dioxide 19 L Anion Gap 12.1 BUN 9 Creatinine 0.80 Estimated Creat Clear 201 Estimated GFR 83 Est GFR ( Amer) 100 Glucose 78 Calcium 9.1 Total Bilirubin 0.4 AST 28 ALT 33 Alkaline Phosphatase 91 Total Protein 6.4 Albumin 3.4 L Globulin 3.0 Albumin/Globulin Ratio 1.1 Blood Type A Positive Antibody Screen Negative Crossmatch ([facility]) See Detail DS: Diagnosis Discharge Diagnosis (1) Gestational diabetes: Status: Acute Code(s): O24.419 - Gestational diabetes mellitus in , unspecified control (2) Chronic hypertension affecting : Status: Acute Code(s): O10.919 - Unspecified pre-existing hypertension complicating , unspecified trimester (3) MDD (major depressive disorder): Status: Acute Code(s): F32.9 - Major depressive disorder, single episode, unspecified (4) Anxiety: Status: Acute Code(s): F41.9 - Anxiety disorder, unspecified (5) Obesity (BMI 30-39.9): Status: Acute Code(s): E66.9 - Obesity, unspecified (6) Hypertension: Status: Acute Code(s): I10 - Essential (primary) hypertension (7) Active labor: Status: Acute (8) labor in third trimester with delivery: Status: Acute Code(s): O60.14X0 - labor third trimester with delivery third trimester, not applicable or unspecified (9) Non-reactive NST (non-stress test): Status: Acute Code(s): O28.8 - Other abnormal findings on screening of mother (10) Decreased movement affecting management of in third trimester: Status: Acute Code(s): O36.8130 - Decreased movements, third trimester, not applicable or unspecified Meds Home Medications and Allergies Home Medications ?Medication ?Instructions ?Recorded ?Confirmed ?Type vits no.126-ferrous fum 1 tab PO DAILY 07/17/24 02/19/25 History 28 mg iron-folic acid 800 mcg tablet (Classic ) albuterol sulfate 90 mcg/actuation 2 puff inhalation Q4-6H PRN 09/05/24 02/19/25 Rx aerosol inhaler shortness of breath or wheezing #8.5 grams fluticasone propionate 50 2 spray intranasal DAILY #16 grams 11/15/24 02/19/25 Rx mcg/actuation nasal spray,suspension (Flonase Allergy Relief) acetaminophen 500 mg tablet 500 mg PO Q6H PRN fever or pain 02/20/25 Rx #30 tabs ibuprofen 800 mg tablet 800 mg PO Q8H PRN pain #60 tabs 02/20/25 Rx sennosides 8.6 mg tablet (Senna 8.6 mg PO BIDP PRN Constipation 02/20/25 Rx Lax) #60 tabs simethicone 125 mg tablet 125 mg PO DAILY PRN abdominal 02/20/25 Rx distention #60 tabs New Prescriptions to Start Prescriptions: acetaminophen Shanel Hernandez ibuprofen Shanel Hernandez sennosides [Senna Lax] Shanel Hernandez simethicone Shanel Hernandez Allergies Allergy/AdvReac Type Severity Reaction Status Date / Time amoxicillin (From AUGMENTIN) Allergy Unknown Rash Verified 02/19/25 09:05 clavulanic acid (From Allergy Unknown Rash Verified 02/19/25 09:05 AUGMENTIN) Discharge Plan Disposition Patient Disposition: Home, Self-Care Discharge Order Discharge Orders: Discharge Order (Routine); Ordered 02/20/25 Ordered By: Shanel Hernandez Follow up Plan Prescriptions/Medication Reconciliation: New sennosides [Senna Lax] 8.6 mg Tablet 8.6 mg PO BIDP PRN (Reason: Constipation) Qty: 60 2RF ibuprofen 800 mg tablet 800 mg PO Q8H PRN (Reason: pain) Qty: 60 2RF acetaminophen 500 mg tablet 500 mg PO Q6H PRN (Reason: fever or pain) Qty: 30 3RF simethicone 125 mg tablet 125 mg PO DAILY PRN (Reason: abdominal distention) Qty: 60 2RF Continued Classic 28 mg iron- 800 mcg tablet 1 tab PO DAILY albuterol sulfate 90 mcg/actuation HFA aerosol inhaler 2 puff inhalation Q4-6H PRN (Reason: shortness of breath or wheezing) Qty: 8.5 0RF fluticasone propionate [Flonase Allergy Relief] 50 mcg/actuation spray,suspension 2 spray intranasal DAILY Qty: 16 2RF Rx Instructions: administer into each nostril daily Discontinued (DME) pen needle, diabetic [Ultra-Fine Pen Needle] 31 gauge x 3/16 needle See Rx Instructions .ROUTE .MEDSUPPLY Qty: 1200 Rx Instructions: As directed insulin glargine [Lantus Solostar U-100 Insulin] 100 unit/mL (3 mL) insulin pen 10 unit SQ DAILY (DME) Dexcom G6 Sensor Device See Rx Instructions .ROUTE .MEDSUPPLY Qty: 1 Rx Instructions: As directed Problem Reconciliation Problems Reviewed?: Yes Patient Discharge Instructions ACTIVITY: Continue current activity DIET: regular diet Additional Instructions: Congratulations on the delivery of your sweet baby girl. It is my privilege to be your doctor and I am so thankful I could be a part of your special day. Discharge: -Take 800 mg Ibuprofen every 8 hours as needed for pain. You can also take 500-1000 mg of Tylenol in between doses, every 6-8 hours. -Colace can be taken 1-2 times per day as you need to soften your stool. Make sure to drink at least 8 cups of water per day. -Iron supplements can make you constipated. You can take iron tablets every other day if constipation is too bad. -Nothing in the vagina for 6 weeks - no intercourse, douching, tampons. No tub baths or swimming pools. -Do not lift greater than 20pounds for 2 weeks, this is the equivalent of 2 gallons of milk. -Reasons to return to L&D or call On-Call doctor - fever (greater than 100.4) - heavy vaginal bleeding (soaking through 1 pad in less than 2 hours or passing clots that are egg sized) - vaginal discharge (malodorous and/or purulent) - severe headaches, leg tenderness/edema, or any other symptoms that warrant immediate medical attention. depression/blues - Normal to feel anxious/overwhelmed for first 2 weeks - Talk to your doctor if: anxiety lasts over 2 weeks, trouble bonding with baby, withdrawing from other family members, thoughts of harming yourself or others Blood pressure and preeclampsia instructions 1. Please take your blood pressure twice daily. The most likely timeframe for preeclampsia to develop is within the first 72 hours after delivery 2. Please call if greater than 2 values are higher than: 150 systolic (the top number) or 100 diastolic (the bottom number). 3. Please go to the emergency room or labor and delivery triage if any value is higher than: 160 systolic (the top number) or 110 diastolic (the bottom number). 4. Please call if unrelenting headache (does not go away with rest or Tylenol or ibuprofen), changes in vision (spots, floaters, flashes of light), chest pain, shortness of breath, or right upper quadrant (liver) abdominal pain. Shanel Hernandez DO [facility] [phone] *Nothing in the Vagina for 6 weeks* *No strenuous activity* *No heavy lifting* *No tub baths until okay's by MD* Print Language: Malaysian Providers Primary Care Provider: Lesli Eugene Admit Provider: Madelin Nugent Attending Provider: Shanel Hernandez
[2025-02-20 13:35] LABS: RPR W/RFX Titers Nonreactive (Nonreactive)
== END 2025-02-20 11:54 | disposition home or self-care (01) | DRG 806 ==
LOC: OB 02-20 05:46
PROVIDERS: Admitting Provider Obstetrics & Gynecology; PCP Nurse Practitioner Family; Visit Provider Obstetrics & Gynecology
DX: O60.14X0 Preterm labor third trimester with preterm delivery third trimester, not applicable or unspecified (principal); O10.02 Pre-existing essential hypertension complicating childbirth; Z37.0 Single live birth; Z3A.36 36 weeks gestation of pregnancy; O99.214 Obesity complicating childbirth; O99.344 Other mental disorders complicating childbirth; F32.9 Major depressive disorder, single episode, unspecified; F41.9 Anxiety disorder, unspecified; O24.424 Gestational diabetes mellitus in childbirth, insulin controlled; O36.8130 Decreased fetal movements, third trimester, not applicable or unspecified; O36.63X0 Maternal care for excessive fetal growth, third trimester, not applicable or unspecified; O28.8 Other abnormal findings on antenatal screening of mother; O71.82 Other specified trauma to perineum and vulva; Z23 Encounter for immunization; Z88.1 Allergy status to other antibiotic agents; Z88.0 Allergy status to penicillin; Z79.51 Long term (current) use of inhaled steroids; Z79.899 Other long term (current) drug therapy
CPT/HCPCS: 59409; 36415; 59025; 76816; 76819; 80053; 82800; 85025; 86592; 86850; 96361; 96365; 96366; G0378; J7121

== ENCOUNTER 2025-02-22 10:15 | Outpatient (CLI) | payer MEDICAID, SELFPAY ==
--- OUTSIDE RECORDS SUMMARY | 2025-02-06 09:48 | XMS_ITS | Encounter Summary ---
Author Organization [facility] Address [address] [place] [address] Care Team Providers Care Delinquency Prevention Officer Name Role Phone Provider, No Known Primary Care Provider Unavail able Reason for Referral * Diagnostic Imaging (Routine) - Closed Specialty Diagnoses / Procedures Referred By Ashvin beach Referred To Contact Radiology Diagnoses Gestational diabetes mellitus (GDM) in third trimester controlled on oral hypoglycemic drug , unspecified gestational age Procedures [facility] [place] Vern Hernandez DO [address] [place] [address] [address] [place] [id number] Phone: tel: fax: [facility] DIAG [facility] [address] [place] [address] Phone: tel: Referral ID Status Reason Start Date Expiration Date Visits Re quested Visits Authorized [id number] Closed 01/30/2025 05/01/2026 1 1 Reason for Visit * Diagnostic Imaging (Routine) - Closed Specialty Diagnoses / Procedures Referred By Ashvin beach Referred To Contact Radiology Diagnoses Gestational diabetes mellitus (GDM) in third trimester controlled on oral hypoglycemic drug , unspecified gestational age Procedures [facility] Diagnostic [place] Vern Hernandez DO [address] [place] [address] [address] [place] [address] Phone: tel: fax: [facility] PER DI[facility] [address] [place] [address] Phone: tel: Referral ID Status Reason Start Date Expiration Date Visits Re quested Visits Authorized [id number] Closed 01/30/2025 05/01/2026 1 1 Encounter Details Date Type Department Care Team (Latest Contact Info) Description 02/06/2025 9:48 AM EDT - 02/06/2025 11:59 PM EDT Hospital Encounter [facility] [address] [place] [address] Vern Hernandez, [address] [place] [address] [facility] [address] [place] [address] Gestational diabetes mellitus (GDM) in third trimester [...] Sensor (Dexcom G6 Sensor) 01/23/2025 Continuous Glucose Transmitter (Dexcom G6 Transmitter) misc 01/23/2025 fluticasone (FLONASE) 50 MCG/ACT nasal spray As Needed. 11/15/2024 Vit-Fe Fumarate-FA ( vitamin 27-0.8) 27-0.8 MG tablet tablet Take 1 tablet by mouth Daily. Continuous Glucose Sensor (Dexcom G7 Sensor) misc Use 1 each Every 10 (Ten) Days. 3 each 11 02/06/2025 Insulin Glargine (LANTUS SOLOSTAR) 100 UNIT/ML injection pen Inject 10 Units under the skin into the appropriate area as directed Every Night. 15 mL 1 02/06/2025 Insulin Pen Needle (Pen [place]) 31G X 5 MM misc Use 1 each 4 (Four) Times a Day. 100 each 2 02/06/2025 documented as of this encounter Plan of Treatment Not on file documented as of this encounter Procedures Procedure Name Priority Date/Time Associated Diagnosis Comments [facility] Routine 02/06/2025 11:47 AM EDT Gestational diabetes mellitus (GDM) in third trimester controlled on oral hypoglycemic drug , unspecified gestational age documented in this encounter Results * [facility] (02/06/2025 11:47 AM EDT) Anatomical Region Laterality Modality Ultrasound 02/06/2025 11:0 2 AM EDT Narrative 02/11/2025 10:06 AM EDT PAT NAME: BERNADETTE ÁLVAREZ [facility] REC#: [id number] DA: [id number] PAT GEND: F PAT TYPE: O EXAM DARRYL: [id number] REF PHYS VERN HERNANDEZ Comparison Studies There [...] EFW (oz) 9 oz EFW by: Hadlock (NDQ-HU-WA-FL) Extended Cav. septi pel. tr 5.7 mm Insole Doubler 6.6 mm Head / Face / Neck [...] normal IVC: normal 3-vessel view: Appears normal 6-djmcza-gktwbvt view: Appears normal Rt lung: Appears normal [...] 8/8 UA doppler normal Coding ======= Description: 95001-74 Detailed Ultrasound Description: 96258-19 BPP without NST Bradder: Hoda Coats RDMS Physician: Jackie Fair MD, FACOG Electronically signed by: Jackie Fair MD, FACOG at: 10:06 Procedure Note Jackie Fair MD - 02/11/2025 PAT NAME: BERNADETTE ÁLVAREZ [facility] REC#: [id number] DA: [id number] PAT GEND: F PAT TYPE: O EXAM DARRYL: [id number] REF PHYS VERN HERNANDEZ Comparison Studies There are no relevant prior studies to which this study is beingcompared Patient Status Outpatient Indication ======== GDM, CHTN, hx PTL, obesity Maternal Assessment Hmhxof014 cm Height (ft)5 ft Height (in)9 in Hixjcw623 kg Weight (lb)278 lb BMI41.65 kg/m Method ======= Transabdominal ultrasound examination ========= Meyers . Number of fetuses: 1 Dating ====== Method of dating:based on stated AD GA by prior hzwvkoxvgn80 w + 5 d AD by prior assessment:03/15/2025 Ultrasound examination on:02/06/2025 GA by U/S based upon:AC, BPD, Femur, HC GA by U/S36 w + 4 d AD by U/S:03/02/2025 Assigned:based on stated AD, selected on 02/06/2025 Assigned GA34 w + 5 d Assigned AD:03/15/2025 uffwsr428 d Biometry Standard BPD93.7 mm 38w 1d >99% Hadlock BFZ225.6 mm -/- >99% Shonda HC334.6 mm 38w 2d 93% Hadlock AC340.6 mm 38w 0d >99% Hadlock Femur61.7 mm 32w 0d 2% Hadlock Yxoqdlh15.0 mm 32w 4d 13% Shonda HC / AC0.98 EFW2,985 g 36w 6d 91% Hadlock EFW (lb)6 lb EFW (oz)9 oz EFW by:Hadlock (SZJ-CD-XZ-FL) Extended Cav. septi pel. tr5.7 mm Vp6.6 mm Head / Face / Neck Cephalic index0.80 46% Nicolaides Extremities / Bony Struc FL / BPD0.66 FL / HC0.18 FL / AC0.18 Other Structures XWM691 bpm General Evaluation Cardiac activity present. FHR [...] arch view:suboptimal SVC:normal IVC:normal 3-vessel view:Appears normal 5-xlcyez-rznltst view:Appears normal Rt lung:Appears normal Lt lung:normal [...] BPP 8/8 UA doppler normal Coding ======= Description:30484-31 Detailed Ultrasound Description:54713-86 BPP without NST Bradder: Hoda Coats RDMS Physician: Jackie Fair MD, FACOG Electronically signed by: Jackie Fair MD, FACOG at: 2510:06 us Vern Hernandez DO G US ORDERABLES Final Res ult documented in this encounter Visit Diagnoses Diagnosis Gestational diabetes mellitus (GDM) in third trimester controlled on oral hypoglycemic drug , unspecified gestational age documented in this encounter Care Teams Delinquency Prevention Officer Relationship Specialty Start Date End Date Provider, [place] [address] PCP - General 03/09/16 documented as of this encounter
--- OUTSIDE RECORDS SUMMARY | 2025-02-06 10:00 | XMS_ITS | Encounter Summary ---
Author Organization [facility] Address [address] [place] [address] Care Team Providers Care Client Technologies Specialist Name Role Phone Provider, No Known Primary Care Provider Unavail able Reason for Visit * Reason Comments GDM with hypoglycemia Encounter Details Date Type Department Care Team (Late st Contact Info) Description 02/06/2025 10:00 AM EDT Office Visit [facility] MATERNAL MEDICINE [address] [phone] Jackie Greene MD 1700 [facility] [address] [place] [phone] Unspecified high-risk (Primary Dx); GDM, class A2 [...] under imaging tab of patient chart in [facility] (Viewpoint report). Jackie Greene MD * Jackie [...] Rfl: Continuous Glucose Transmitter (Dexcom G6 Transmitter) [facility], , Disp: , Rfl: fluticasone (FLONASE) 50 MCG/ACT nasal spray, As Needed., Disp: , Rfl: Vit-Fe Fumarate-FA ( vitamin 27-0.8) 27-0.8 MG tablet tablet, Take 1 tablet by mouth Daily., Disp: , Rfl: Continuous Glucose Sensor (Dexcom G7 Sensor) [facility], Use 1 each Every 10 (Ten) Days., Disp: 3 each, Rfl: 11 Insulin Glargine (LANTUS SOLOSTAR) 100 UNIT/ML injection pen, Inject 10 Units under the skin into the appropriate area as directed Every Night., Disp: 15 mL, Rfl: 1 Insulin Pen Needle (Pen [place]) 31G X 5 MM [facility], Use 1 each 4 (Four) Times a [...] CVS. Jackie Greene MD FACOG Maternal Medicine, [facility] 02/06/2025 documented in this encounter Plan of Treatment Not on file documented as of this encounter Visit Diagnoses Diagnosis Unspecified high-risk - Primary GDM, class A2 Abnormal maternal glucose tolerance, complicating , childbirth, or the puerperium, unspecified as to episode of care documented in this encounter Care Teams Client Technologies Specialist Relationship Specialty Start Date End Date Provider, [place] [address] PCP - General 03/09/16 documented as of this encounter
--- OUTSIDE RECORDS SUMMARY | 2025-02-25 09:33 | XMS_ITS | Clinical Summary ---
Author Organization Healthcare Address [address] [place] [address] Care Team Providers Care Marine Biologist Name Role Phone Vladimir Baumann DO Primary [...] 3 - 19+ 3-dose series) 02/29/2024 02/01/2024 [id number] Vaccine (2 - 2024- season) 2025 05/11/2021 [...] age to complete this topic Insurance [employer] MEDICAID Care Teams Marine Biologist Relationship Specialty Start Date End Date Vladimir Baumann DO [address] [place] [address] PCP - General 10/31/20
--- OUTSIDE RECORDS SUMMARY | 2025-02-25 09:33 | XMS_ITS | Encounter Summary ---
Author Organization [facility] Address [address] [place] [address] Care Team Providers Care Senior Applications Architect Name Role Phone Provider, No Known Primary Care Provider Unavail able Encounter Details Date Type Department Care Team (Late st Contact Info) Description 02/06/2025 Documentation [facility] MATERNAL MEDICINE [address] [facility] [address] [place] [address] Anabell Tejada RN Social History [...] on filedocumented in this encounter Care Teams Senior Applications Architect Relationship Specialty Start Date End Date Provider, [place] [address] PCP - General 03/09/16 documented as of this encounter
--- OUTSIDE RECORDS SUMMARY | 2025-02-25 09:33 | XMS_ITS | Encounter Summary ---
Author Organization [facility] Address [address] [place] [address] Care Team Providers Care Wet End Operator Name Role Phone Provider, No Known Primary Care Provider Unavail able Encounter Details Date Type Department Care Team (Late st Contact Info) Description 02/06/2025 Medication Therapy Management [facility] MEDICAL [facility] MATERNAL MEDICINE [address] [place] [phone] Jackie Fair MD [address] [place] [address] Social History Tobacco Use Types Packs/Day Years [...] on filedocumented in this encounter Care Teams Wet End Operator Relationship Specialty Start Date End Date Provider, No Known [facility] [place] [address] PCP - General 03/09/16 documented as of this encounter
--- OUTSIDE RECORDS SUMMARY | 2025-02-25 09:35 | XMS_ITS | Encounter Summary ---
Author Organization [facility] Address [address] [place] [address] Care Team Providers Care Weed Burner Name Role Phone Provider, No Known Primary [...] on filedocumented in this encounter Care Teams Weed Burner Relationship Specialty Start Date End Date Provider, No Known [facility] [place] [address] PCP - General 03/09/16 documented as of this encounter
--- OUTSIDE RECORDS SUMMARY | 2025-02-25 09:35 | XMS_ITS | Clinical Summary ---
Author Organization [facility] Address [address] [place] [address] Care Team Providers Care Air Quality Specialist Name Role Phone Provider, No Known [...] 1 5 Active Insulin Pen Needle (Pen [place]) 31G X 5 MM misc Use 1 [...] Description 02/06/2025 10:00 AM EDT Office Visit [facility] MATERNAL MEDICINE [address] [place] [phone] Jackie Fair MD Unspecified high-risk (Primary Dx); GDM, class A2 02/06/2025 9:48 AM EDT - 02/06/2025 11:59 PM EDT Hospital Encounter [facility] [address] [place] [address] Vern Hernandez, Gestational diabetes mellitus (GDM) in third trimester controlled on oral hypoglycemic drug; , unspecified gestational age Discharge Disposition: Home or Self Care 02/06/2025 Documentation [facility] MATERNAL MEDICINE [address] [place] [phone] Anabell Tejada RN 02/06/2025 Medication Therapy Management [facility] MATERNAL MEDICINE [address] [place] [phone] Jackie Fair MD 02/06/2025 Travel from Last [...] (2 - 2024-2 6 season) 2025 05/11/2021 INFLUENZA VACCINE 03/20/2025 04/17/2012, 04/11/2007 TDAP/TD VACCINES (2 - Td or Tdap) 05/15/2030 05/15/2020 Pneumococcal Vaccine 0-49 Aged Out No longer eligible based on patient's age to complete this topic RSV Vaccine - Adults (No Doses Required) Completed Procedures Procedure Name Priority Date/Time Associated Diagnosis Comments [facility] Routine 02/06/2025 11:47 AM EDT Gestational diabetes mellitus (GDM) in third trimester controlled on oral hypoglycemic drug , unspecified gestational age from Last 3 Months Results * [facility] (02/06/2025 11:47 AM EDT) Anatomical Region Laterality Modality Ultrasound 02/06/2025 11:0 2 AM EDT Narrative 02/11/2025 10:06 AM EDT PAT NAME: BERNADETTE ÁLVAREZ [facility] REC#: [id number] DA: [id number] PAT GEND: F PAT TYPE: O EXAM DARRYL: [id number] REF PHYS VERN HERNANDEZ Comparison Studies There [...] EFW (oz) 9 oz EFW by: Hadlock ([id number]) Extended Cav. septi pel. tr 5.7 mm Comb Setter 6.6 mm Head / Face / Neck [...] normal IVC: normal 3-vessel view: Appears normal 1-vepgvf-gqgltph view: Appears normal Rt lung: Appears normal [...] 8/8 UA doppler normal Coding ======= Description: 14386-20 Detailed Ultrasound Description: 44088-29 BPP without NST Coil Tester: Hoda Coats Physician: Jackie Fair MD, FACOG Electronically signed by: Jackie Fair MD, FACOG at: 10:06 Procedure Note Jackie Fair MD - 02/11/2025 PAT NAME: BERNADETTE ÁLVAREZ [facility] REC#: [id number] DA: 1990 PAT GEND: F PAT TYPE: O EXAM DARRYL: [id number] REF PHYS CECILIA VERN Comparison Studies There are no relevant prior studies to which this study is beingcompared Patient Status Outpatient Indication ======== GDM, CHTN, hx PTL, obesity Maternal Assessment Iwxjfn504 cm Height (ft)5 ft Height (in)9 in Hzlrnc043 kg Weight (lb)278 lb BMI41.65 kg/m Method ======= Transabdominal ultrasound examination ========= Meyers . Number of fetuses: 1 Dating ====== Method of dating:based on stated AD GA by prior w + 5 d AD by prior assessment:03/15/2025 Ultrasound examination on:02/06/2025 GA by U/S based upon:AC, BPD, Femur, HC GA by U/S36 w + 4 d AD by U/S:03/02/2025 Assigned:based on stated AD, selected on 02/06/2025 Assigned GA34 w + 5 d Assigned AD:03/15/2025 [id number] d Biometry Standard BPD93.7 mm 38w 1d >99% Hadlock UQP269.6 mm -/- >99% Shonda HC334.6 mm 38w 2d 93% Hadlock AC340.6 mm 38w 0d >99% Hadlock Femur61.7 mm 32w 0d 2% Hadlock Eqispoa02.0 mm 32w 4d 13% Shonda HC / AC0.98 EFW2,985 g 36w 6d 91% Hadlock EFW (lb)6 lb EFW (oz)9 oz EFW by:Hadlock ([id number]-FL) Extended Cav. septi pel. tr5.7 mm Vp6.6 mm Head / Face / Neck Cephalic index0.80 46% Nicolaides Extremities / Bony Struc FL / BPD0.66 FL / HC0.18 FL / AC0.18 Other Structures WUJ888 bpm General Evaluation Cardiac activity present. FHR [...] arch view:suboptimal SVC:normal IVC:normal 3-vessel view:Appears normal 1-hpcgwu-aqlcbar view:Appears normal Rt lung:Appears normal Lt lung:normal [...] movements 2: tone 2: Amniotic fluid volume 8 Biophysical profile score Maternal Structures Uterus / Cervix Cervix:Visualized Approach:Transabdominal Ovaries / Tubes / Adnexa Rt ovary:Visualized Lt ovary:Visualized Impression Cephalic S>D Normal appearing limited anatomy Normal fluid BPP 01/25 UA doppler normal Coding ======= Description:08558-87 Detailed Ultrasound Description: BPP without NST Coil Tester: Hoda Coats RDMS Physician: Jackie Fair MD, FACOG Electronically signed by: Jackie Fair MD, FACOG at: :06 us Vern Hernandez DO IMG US ORDERABLES Final Res ult from Last 3 Months Insurance [employer] MEDICAID [place] [facility] INSURANCE Care Teams Air Quality Specialist Relationship Specialty Start Date End Date Provider, [place] [address] PCP - General 03/09/16
== END 2025-02-22 23:59 ==
LOC: LAB.DROPOF 02-25 09:28
PROVIDERS: PCP Nurse Practitioner Obstetrics & Gynecology; Visit Provider Nurse Practitioner Obstetrics & Gynecology
DX: N39.0 Urinary tract infection, site not specified (principal)
CPT/HCPCS: 87086; 87088; 87186

== ENCOUNTER 2025-02-22 17:23 | Emergency (ER) | payer MEDICAID, SELFPAY ==
--- OUTSIDE RECORDS SUMMARY | 2025-02-06 09:48 | XMS_ITS | Encounter Summary ---
Author Organization [facility] Address [address] [place] [address] Care Team Providers Care Human Factors Ergonomist Name Role Phone Provider, No Known Primary Care Provider Unavail able Reason for Referral * Diagnostic Imaging (Routine) - Closed Specialty Diagnoses / Procedures Referred By Ashvin t Referred To Contact Radiology Diagnoses Gestational diabetes mellitus (GDM) in third trimester controlled on oral hypoglycemic drug , unspecified gestational age Procedures [facility] Diagnostic [place] Vern Hernandez DO [address] [place] [address] [address] [place] [id number] Phone: tel: fax: [facility] US PER DIAG CTR [address] [place] [address] Phone: tel: Referral ID Status Reason Start Date Expiration Date Visits Re quested Visits Authorized [id number] Closed 01/30/2025 05/01/2026 1 1 Reason for Visit * Diagnostic Imaging (Routine) - Closed Specialty Diagnoses / Procedures Referred By Ashvin beach Referred To Contact Radiology Diagnoses Gestational diabetes mellitus (GDM) in third trimester controlled on oral hypoglycemic drug , unspecified gestational age Procedures [facility] Diagnostic [place] Vern Hernandez DO [address] [place] [address] [address] [place] [address] Phone: tel: fax: [facility] PER DIAG [facility] [address] [place] [address] Phone: tel: Referral ID Status Reason Start Date Expiration Date Visits Re quested Visits Authorized [id number] Closed 01/30/2025 05/01/2026 1 1 Encounter Details Date Type Department Care Team (Latest Contact Info) Description 02/06/2025 9:48 AM EDT - 02/06/2025 11:59 PM EDT Hospital Encounter [facility] PER DIAG [facility] [address] [place] [address] Vern Hernandez, [address] [place] [address] [facility] [address] [place] [address] Gestational diabetes mellitus (GDM) in third trimester [...] mL 1 02/06/2025 Insulin Pen Needle (Pen [place]) 31G X 5 MM misc Use 1 each 4 (Four) Times a Day. 100 each 2 02/06/2025 documented as of this encounter Plan of Treatment Not on file documented as of this encounter Procedures Procedure Name Priority Date/Time Associated Diagnosis Comments [facility] Routine 02/06/2025 11:47 AM EDT Gestational diabetes mellitus (GDM) in third trimester controlled on oral hypoglycemic drug , unspecified gestational age documented in this encounter Results * [facility] (02/06/2025 11:47 AM EDT) Anatomical Region Laterality Modality Ultrasound 02/06/2025 11:0 2 AM EDT Narrative 02/11/2025 10:06 AM EDT PAT NAME: BERNADETTE ÁLVAREZ [facility] REC#: [id number] DA: [id number] PAT GEND: F PAT TYPE: O EXAM DARRYL: [id number] REF PHYS VERN HERNANDEZ Comparison Studies There [...] EFW (oz) 9 oz EFW by: Hadlock (UHI-EH-VQ-FL) Extended Cav. septi pel. tr 5.7 mm Vest Front Presser 6.6 mm Head / Face / Neck [...] normal IVC: normal 3-vessel view: Appears normal 7-quiiaz-wmmijrt view: Appears normal Rt lung: Appears normal [...] 8/8 UA doppler normal Coding ======= Description: 64609-56 Detailed Ultrasound Description: 01094-02 BPP without NST Project Management Intern: Hoda Coats RDMS Physician: Jackie Fair MD, FACOG Electronically signed by: Jackie Fair MD, FACOG at: 10:06 Procedure Note Jackie Fair MD - 02/11/2025 PAT NAME: BERNADETTE ÁLVAREZ [facility] REC#: [id number] DA: [id number] PAT GEND: F PAT TYPE: O EXAM DARRYL: [id number] REF PHYS VERN HERNANDEZ Comparison Studies There are no relevant prior studies to which this study is beingcompared Patient Status Outpatient Indication ======== GDM, CHTN, hx PTL, obesity Maternal Assessment Aukrrr448 cm Height (ft)5 ft Height (in)9 in Gsedeo170 kg Weight (lb)278 lb BMI41.65 kg/m Method ======= Transabdominal ultrasound examination ========= Meyers . Number of fetuses: 1 Dating ====== Method of dating:based on stated AD GA by prior fpirldpgyb86 w + 5 d AD by prior assessment:03/15/2025 Ultrasound examination on:02/06/2025 GA by U/S based upon:AC, BPD, Femur, HC GA by U/S36 w + 4 d AD by U/S:03/02/2025 Assigned:based on stated AD, selected on 02/06/2025 Assigned GA34 w + 5 d Assigned AD:03/15/2025 jysqry421 d Biometry Standard BPD93.7 mm 38w 1d >99% Hadlock DGM964.6 mm -/- >99% Shonda HC334.6 mm 38w 2d 93% Hadlock AC340.6 mm 38w 0d >99% Hadlock Femur61.7 mm 32w 0d 2% Hadlock Shymows54.0 mm 32w 4d 13% Shonda HC / AC0.98 EFW2,985 g 36w 6d 91% Hadlock EFW (lb)6 lb EFW (oz)9 oz EFW by:Hadlock (BMB-VA-KL-FL) Extended Cav. septi pel. tr5.7 mm Vp6.6 mm Head / Face / Neck Cephalic index0.80 46% Nicolaides Extremities / Bony Struc FL / BPD0.66 FL / HC0.18 FL / AC0.18 Other Structures PNI436 bpm General Evaluation Cardiac activity present. FHR [...] arch view:suboptimal SVC:normal IVC:normal 3-vessel view:Appears normal 8-wciwlp-xucrgpg view:Appears normal Rt lung:Appears normal Lt lung:normal [...] BPP 8/8 UA doppler normal Coding ======= Description:72575-87 Detailed Ultrasound Description:62846-84 BPP without NST Project Management Intern: Hoda Coats RDMS Physician: Jackie Fair MD, FACOG Electronically signed by: Jackie Fair MD, FACOG at: 2510:06 us Vern Hernandez DO G US ORDERABLES Final Res ult documented in this encounter Visit Diagnoses Diagnosis Gestational diabetes mellitus (GDM) in third trimester controlled on oral hypoglycemic drug , unspecified gestational age documented in this encounter Care Teams Human Factors Ergonomist Relationship Specialty Start Date End Date Provider, [place] [address] PCP - General 03/09/16 documented as of this encounter
--- OUTSIDE RECORDS SUMMARY | 2025-02-06 10:00 | XMS_ITS | Encounter Summary ---
Author Organization [facility] Address [address] [place] [address] Care Team Providers Care Promotor Group Ticket Sales Name Role Phone Provider, No Known Primary Care Provider Unavail able Reason for Visit * Reason Comments GDM with hypoglycemia Encounter Details Date Type Department Care Team (Late st Contact Info) Description 02/06/2025 10:00 AM EDT Office Visit [facility] MATERNAL MEDICINE [address] [phone] Jackie Greene MD 1700 [facility] [address] [place] [address] Unspecified high-risk (Primary Dx); GDM, class A2 [...] under imaging tab of patient chart in [facility] (Viewpoint report). Jackie Greene [...] Rfl: Continuous Glucose Transmitter (Dexcom G6 Transmitter[place] [facility] [place] [place], , Disp: , Rfl: fluticasone (FLONASE) 50 MCG/ACT nasal spray, As Needed., Disp: , Rfl: Vit-Fe Fumarate-FA ( vitamin 27-0.8) 27-0.8 MG tablet tablet, Take 1 tablet by mouth Daily., Disp: , Rfl: Continuous Glucose Sensor (Dexcom G7 Sensor) [facility] [place] [place], Use 1 each Every 10 (Ten) Days., Disp: 3 each, Rfl: 11 Insulin Glargine (LANTUS SOLOSTAR) 100 UNIT/ML injection pen, Inject 10 Units under the skin into the appropriate area as directed Every Night., Disp: 15 mL, Rfl: 1 Insulin Pen Needle (Pen [place]) 31G X 5 MM [facility] [place], Use 1 each 4 [...] CVS. Jackie Greene MD FACOG Maternal Medicine, [facility] 02/06/2025 documented in this encounter Plan of Treatment Not on file documented as of this encounter Visit Diagnoses Diagnosis Unspecified high-risk - Primary GDM, class A2 Abnormal maternal glucose tolerance, complicating , childbirth, or the puerperium, unspecified as to episode of care documented in this encounter Care Teams Promotor Group Ticket Sales Relationship Specialty Start Date End Date Provider, [place] [address] PCP - General 03/09/16 documented as of this encounter
[2025-02-22 17:47] VITALS: BP 133/89; PULSE 125; RESP 18; TEMP 36.7; O2SAT 100; BMI 38.7
--- NOTE | 2025-02-22 17:48 | ECG_ITS ---
APPROVED REPORT Exam: Resting ECG HR:129 bpm ECG Measurements Heart Rate 129 AXES AK 144 P 58 QRSd 94 QRS 51 QT 289 T 31 QTc 365 Conclusion SINUS TACHYCARDIA LOW QRS VOLTAGE IN PRECORDIAL LEADS [QRS DEFLECTION < 1.0 mV IN CHEST LEADS] ABNORMAL RHYTHM ECG UNCONFIRMED REPORT Electronically signed by : Jose M Mooney, 02/22/2025 23:28:13
--- OUTSIDE RECORDS SUMMARY | 2025-02-22 17:56 | XMS_ITS | Encounter Summary ---
Author Organization [facility] Address [address] [place] [address] Care Team Providers Care Operating Systems Programmer Name Role Phone Provider, No Known Primary Care Provider Unavail able Encounter Details Date Type Department Care Team (Late st Contact Info) Description 02/06/2025 Medication Therapy Management [facility] MATERNAL MEDICINE [address] [phone] Jackie Fair MD [address] [place] [address] Social History Tobacco Use Types Packs/Day Years [...] on filedocumented in this encounter Care Teams Operating Systems Programmer Relationship Specialty Start Date End Date Provider, No Known [facility] [place] [address] PCP - General 03/09/16 documented as of this encounter
--- OUTSIDE RECORDS SUMMARY | 2025-02-22 17:56 | XMS_ITS | Encounter Summary ---
Author Organization [facility] Address [address] [place] [address] Care Team Providers Care Nondestructive Tester Name Role Phone Provider, No Known Primary Care Provider Unavail able Encounter Details Date Type Department Care Team (Late st Contact Info) Description 02/06/2025 Documentation [facility] MAT[facility] MEDICINE [address] [facility] [address] [place] [address] Anabell Tejada RN Social History [...] on filedocumented in this encounter Care Teams Nondestructive Tester Relationship Specialty Start Date End Date Provider, [place] [address] PCP - General 03/09/16 documented as of this encounter
--- OUTSIDE RECORDS SUMMARY | 2025-02-22 17:56 | XMS_ITS | Clinical Summary ---
Author Organization Healthcare Address [address] [place] [address] Care Team Providers Care Glass Silverer Name Role Phone Vladimir Baumann DO Primary [...] 12/03/2012 [facility]-Cervical Cancer Screening 2021 [facility]-HPV/Cotest 2021 [facility]-Hepatitis B Vaccines (2 of 3 - 19+ 3-dose series) 02/29/2024 02/01/2024 [id number] Vaccine (2 - 2024- season) 2025 05/11/2021 [facility]-Influenza Vaccine (#1) 02/18/202504/17, 04/11/2007 [facility]-DTaP,Tdap,and Td [...] age to complete this topic Insurance [employer] MED[employer] Care Teams Glass Silverer Relationship Specialty Start Date End Date Vladimir Baumann DO [address] [place] [address] PCP - General 10/31/20
--- OUTSIDE RECORDS SUMMARY | 2025-02-22 17:57 | XMS_ITS | Clinical Summary ---
Author Organization [facility] Address [address] [place] [address] Care Team Providers Care Rn Radiation Oncology Name Role Phone Provider, No Known Primary [...] 1 5 Active Insulin Pen Needle (Pen Munger) 31G X 5 MM misc Use 1 [...] Description 02/06/2025 10:00 AM EDT Office Visit [facility] MATERNAL MEDICINE [address] [phone] Jackie Fair MD Unspecified high-risk (Primary Dx); GDM, class A2 02/06/2025 9:48 AM EDT - 02/06/2025 11:59 PM EDT Hospital Encounter [facility] US PER [facility] [address] [place] [address] Vern Hernandez, Gestational diabetes mellitus (GDM) in third trimester controlled on oral hypoglycemic drug; , unspecified gestational age Discharge Disposition: Home or Self Care 02/06/2025 Documentation [facility] MATERNAL MEDICINE [address] [phone] Anabell Tejada RN 02/06/2025 Medication Therapy Management [facility] MATERNAL MEDICINE [address] [phone] Jackie Fair MD 02/06/2025 Travel from Last [...] d Breast Exam 1991 PAP SMEAR 2012 ANNUAL PHYSICAL 01/30/2025 HEPATITIS C SCREENING 01/30/2025 COVID-19 Vaccine (2 - 2024-2 6 season) 2025 05/11/2021 RSV Vaccine - Adults (1 - Risk 1-dose series) 02/18/2025 INFLUENZA VACCINE 03/20/2025 04/17/2012, 04/11/2007 TDAP/TD VACCINES (2 - Td or Tdap) 05/15/2030 05/15/2020 Pneumococcal Vaccine 0-49 Aged Out No longer eligible based on patient's age to complete this topic Procedures Procedure Name Priority Date/Time Associated Diagnosis Comments [facility] Routine 02/06/2025 11:47 AM EDT Gestational diabetes mellitus (GDM) in third trimester controlled on oral hypoglycemic drug , unspecified gestational age from Last 3 Months Results * [facility] (02/06/2025 11:47 AM EDT) Anatomical Region Laterality Modality Ultrasound 02/06/2025 11:0 2 AM EDT Narrative 02/11/2025 10:06 AM EDT PAT NAME: BERNADETTE ÁLVAREZ [facility] REC#: [id number] DA: [id number] PAT GEND: F PAT TYPE: O EXAM DARRYL: [id number] REF PHYS VERN HERNANDEZ Comparison Studies There [...] EFW (oz) 9 oz EFW by: Hadlock ([id number]) Extended Cav. septi pel. tr 5.7 mm Coin Wrapping Machine Operator 6.6 mm Head / Face / Neck [...] normal IVC: normal 3-vessel view: Appears normal 5-yuqwjr-xlojqln view: Appears normal Rt lung: Appears normal [...] 8/8 UA doppler normal Coding ======= Description: 75647-05 Detailed Ultrasound Description: 83177-35 BPP without NST Sales Executive Insurance: Hoda Coats RDMS Physician: Jackie Fair MD, FACOG Electronically signed by: Jackie Fair MD, FACOG at: 10:06 Procedure Note Jackie Fair MD - 02/11/2025 PAT NAME: BERNADETTE ÁLVAREZ [facility] REC#: [id number] DA: 1990 PAT GEND: F PAT TYPE: O EXAM DARRYL: [id number] REF PHYS VERN HERNANDEZ Comparison Studies There are no relevant prior studies to which this study is beingcompared Patient Status Outpatient Indication ======== GDM, CHTN, hx PTL, obesity Maternal Assessment Joiuso048 cm Height (ft)5 ft Height (in)9 in Bpnanc557 kg Weight (lb)278 lb BMI41.65 kg/m Method ======= Transabdominal ultrasound examination ========= Meyers . Number of fetuses: 1 Dating ====== Method of dating:based on stated AD GA by prior [id number] w + 5 d AD by prior assessment:03/15/2025 Ultrasound examination on:02/06/2025 GA by U/S based upon:AC, BPD, Femur, HC GA by U/S36 w + 4 d AD by U/S:03/02/2025 Assigned:based on stated AD, selected on 02/06/2025 Assigned GA34 w + 5 d Assigned AD:03/15/2025 [id number] d Biometry Standard BPD93.7 mm 38w 1d >99% Hadlock CLJ954.6 mm -/- >99% Shonda HC334.6 mm 38w 2d 93% Hadlock AC340.6 mm 38w 0d >99% Hadlock Femur61.7 mm 32w 0d 2% Hadlock Lxfnqxp11.0 mm 32w 4d 13% Shonda HC / AC0.98 EFW2,985 g 36w 6d 91% Hadlock EFW (lb)6 lb EFW (oz)9 oz EFW by:Hadlock ([id number]-FL) Extended Cav. septi pel. tr5.7 mm Vp6.6 mm Head / Face / Neck Cephalic index0.80 46% Nicolaides Extremities / Bony Struc FL / BPD0.66 FL / HC0.18 FL / AC0.18 Other Structures IKO225 bpm General Evaluation Cardiac activity present. FHR [...] arch view:suboptimal SVC:normal IVC:normal 3-vessel view:Appears normal 1-qjjsbr-ylhihfi view:Appears normal Rt lung:Appears normal Lt lung:normal [...] BPP 8/8 UA doppler normal Coding ======= Description:96495-64 Detailed Ultrasound Description:82848-62 BPP without NST Sales Executive Insurance: Hoda Coats RDMS Physician: Jackie Fair MD, FACOG Electronically signed by: Jackie Fair MD, FACOG at: :06 us Vern Hernandez DO IMG US ORDERABLES Final Res ult from Last 3 Months Insurance [employer] MEDICAID [place] INSURANCE Care Teams Rn Radiation Oncology Relationship Specialty Start Date End Date Provider, [place] [address] PCP - General 03/09/16
--- OUTSIDE RECORDS SUMMARY | 2025-02-22 17:57 | XMS_ITS | Encounter Summary ---
Author Organization [facility] Address [address] [place] [address] Care Team Providers Care Gun Perforator Loader Name Role Phone Provider, No Known Primary [...] on filedocumented in this encounter Care Teams Gun Perforator Loader Relationship Specialty Start Date End Date Provider, No Known [facility] [place] [address] PCP - General 03/09/16 documented as of this encounter
[2025-02-22 18:05] LABS: Coronavirus 19, PCR Not Detected (NotDetected); Influenza A, PCR Not Detected (NotDetected); Influenza B, PCR Not Detected (NotDetected)
[2025-02-22 18:09] LABS: Microscopic, Urine URINE MICROSCOPIC (MICROSCOPIC)
[2025-02-22 18:09] LABS: Hematocrit 31.9 % (37.0-47.0); Hemoglobin 10.4 g/dL (12.2-16.2); Immature Granulocytes % 1.3 %; Mean Corpuscular HGB Conc 32.6 g/dL (31.8-35.4); Mean Corpuscular Hemoglobin 28.8 pg (27.0-31.2); Mean Corpuscular Volume 88.4 fl (81-99); Nucleated Red Blood Cells % 0 %; Platelet Count 139 K/mm3 (142-424); Red Blood Count 3.61 M/mm3 (4.20-5.40); Red Cell Distribution Width-SD 43.1 fL; White Blood Count 5.5 K/mm3 (4.8-10.8)
[2025-02-22 18:14] LABS: Albumin Level 3.8 g/dl (3.5-5.0); Chloride 106 mmol/L (98-107); Potassium 3.7 mmoL/L (3.5-5.1); Sodium 136 mmol/L (136-145)
[2025-02-22 18:17] LABS: Alanine Aminotransferase 74 U/L (12-78); Albumin/Globulin Ratio 1.4 (1.1-1.8); Alkaline Phosphatase 75 U/L (38-126); Anion Gap 10.7 mEq/L (5-15); Aspartate Amino Transferase 78 U/L (14-36); Bilirubin,Total 0.4 mg/dl (0.2-1.3); Blood Urea Nitrogen 4 mg/dl (7-17); Carbon Dioxide 23 mmol/L (22.0-30.0); Creatinine Clearance Estimated 221 mL/min (50-200); Creatinine,Serum 0.70 mg/dl (0.52-1.04); Estimated Glomerular Filt Rate 96 ml/min (>60); GFR (African American) 117 ML/MIN (>60); Globulin 2.8 g/dL (1.3-3.2); Total Protein,Serum 6.6 g/dl (6.3-8.2)
[2025-02-22 18:18] LABS: Calcium 9.1 mg/dl (8.4-10.2); Glucose 93 mg/dl (74-100)
[2025-02-22 18:56] LABS: Bilirubin,Urine Negative (Negative); Color,Urine YELLOW (Yellow); Glucose,Urine (UA) Negative (Negative); Ketones,Urine Negative (Negative); Leukocyte Esterase,Urine 1+ (Negative); PH,Urine 7.0 (5.0-8.5); Protein,Urine Negative (Negative); Specific Gravity, Urine 1.010 (1.005-1.030); Urobilinogen,Urine 0.2 EU/dl (0.2)
--- NOTE | 2025-02-22 20:39 | ED_ITS ---
<Statement entered by Imer Mooney MD - 02/22/25 23:20> I was consulted by the DAISHA, and we discussed the complexity of the problems being addressed. I approved the treatment and management plan for this patient's care in the emergency department, thus performing a substantive portion of the medical decision making. Imer Mooney MD, SVEN, FACEP Discharge Plan Disposition Patient Disposition: Home, Self-Care Condition: Good Prescriptions Prescriptions: New cefdinir 300 mg capsule 300 mg PO BID 10 Days Qty: 20 0RF No Action Classic 28 mg iron- 800 mcg tablet 1 tab PO DAILY albuterol sulfate 90 mcg/actuation HFA aerosol inhaler 2 puff inhalation Q4-6H PRN (Reason: shortness of breath or wheezing) Qty: 8.5 0RF fluticasone propionate [Flonase Allergy Relief] 50 mcg/actuation spray,suspension 2 spray intranasal DAILY Qty: 16 2RF Rx Instructions: administer into each nostril daily nitrofurantoin monohyd/m-cryst [Macrobid] 100 mg capsule 100 mg PO BID Qty: 10 0RF Rx Instructions: must administer with a meal/food sennosides [Senna Lax] 8.6 mg Tablet 8.6 mg PO BIDP PRN (Reason: Constipation) Qty: 60 2RF ibuprofen 800 mg tablet 800 mg PO Q8H PRN (Reason: pain) Qty: 60 2RF acetaminophen 500 mg tablet 500 mg PO Q6H PRN (Reason: fever or pain) Qty: 30 3RF simethicone 125 mg tablet 125 mg PO DAILY PRN (Reason: abdominal distention) Qty: 60 2RF Referrals Follow up/Referrals: Lesli Eugene APRN [Primary Care Provider, Family Practice] - See instructions Activity Restrictions/Add. Instructions Additional Instructions/Restrictions: You were evaluated in the ER and are believed to be appropriate for discharge at this time. Take the prescribed antibiotics as directed, do not skip doses, do not stop taking them early. Continue any home medications as previously prescribed. Make an appointment with primary care and OB for follow-up. Return to the ER with any new, worsening, or otherwise concerning symptoms. Clinical Impressions Clinical Impression: Pyelonephritis Print Language Print Language: Maltese Discharge ED Provider: Imer Mooney General Adult HPI <Joselin Dean (ED), [employer] - Last Filed: 02/22/25 22:04> General Chief complaint: PAIN Stated complaint: Post 02/19/25; High BP; Lower back pain; Time Seen by Provider: 02/22/25 20:26 Mode of Arrival: Ambulatory Source of Information: Patient Description of Symptoms (Recalled from ER Triage Doc. by RN): patient presents to the ED for extreme shakes and lower back pain. Patient gave naturally 3 days ago. No epidural. this is her fourth delivery and she has never experienced this before. History of Present Illness HPI narrative: 34-year-old female presents to the ED today for shaking and left lower back pain. She has aching in her legs. Patient had her baby on Tuesday unmedicated and vaginally. She had a baby at 36 weeks and 4 days. 8 pound baby girl. She was given Macrobid by Dr. Juarez today she has taken 1. Patient is afebrile but her heart rate is elevated. She says this is her fourth delivery and this is the first time she has felt bad. Related Data Home Medications ?Medication ?Instructions ?Recorded ?Confirmed vits no.[id number]-ferrous fum 1 tab PO DAILY 02/22/25 28 mg iron-folic acid 800 mcg tablet (Classic ) Previous Rx's ?Medication ?Instructions ?Recorded albuterol sulfate 90 mcg/actuation 2 puff inhalation Q 4-6H PRN 09/05/24 aerosol inhaler shortness of breath or wheez ing #8.5 grams fluticasone propionate 50 2 spray intranasal DAILY #16 grams 11/15/24 mcg/actuation nasal spray,suspension (Flonase Allergy Relief) acetaminophen 500 mg tablet 500 mg PO Q6H PRN fever or pain 02/20/25 #30 tabs ibuprofen 800 mg tablet 800 mg PO Q8H PRN pain #60 t abs 02/20/25 sennosides 8.6 mg tablet (Senna 8.6 mg PO BIDP PRN Con stipation 02/20/25 Lax) #60 tabs simethicone 125 mg tablet 125 mg PO DAILY PRN abdomina l 02/20/25 distention #60 tabs cefdinir 300 mg capsule 300 mg PO BID 10 days #20 ca ps 02/22/25 nitrofurantoin 100 mg PO BID #10 caps 02/22 monohydrate/macrocrystals 100 mg capsule (Macrobid) Allergies Allergy/AdvReac Type Severity Reaction Status Date / Time amoxicillin (From AUGMENTIN) Allergy Unknown Rash Verified 02/22/25 10:24 clavulanic acid (From Allergy Unknown Rash Verified 02/22/25 10:24 AUGMENTIN) PFSH <Joselin Dena (ED), [employer] - Last Filed: 02/22/25 22:04> PFS Disclaimer: The information contained in this section may have been updated after the patient was seen, as this information can be updated by other users. Medical History Sinusitis Fever Problematic vaginal discharge depression Sinusitis Bronchitis Viral syndrome History of Asthma Surgical History History of surgery on arm Family History Other Diabetes Stroke Social History Smoking Status: Never smoker alcohol intake: never substance use type: denies use current occupational status: employed Travel in the last 8 weeks?: None Have you lived/traveled outside US in past 30 days?: No Contact w/someone who lives/traveled outside US past 30 days?: No Exposure to someone with infectious disease in past 14 days?: No Do you have a fever (greater than 100.4 F or 38 C)?: No Have you tested positive for COVID-19?: No Exposed to someone with COVID-19 in past 14 days?: No Do you have a sore throat?: No Do you have a cough?: No Do you have any weakness?: No Do you have any diarrhea?: No Are you experiencing any unusual bleeding?: No Do you have any muscle aches/pain?: No Do you have any abdominal pain?: No Are you experiencing loss of taste or smell?: No Other Medical History Have you received the Flu Vaccine for this season: No Have you received the Pneumonia Vaccine: No <Joselin Dean (KATELYN), [employer] - Last Filed: 02/22/25 22:04> ROS Obtained: Yes Systems reviewed as appropriate & no additional complaints except as documented Constitutional Constitutional: Reports as per HPI Physical Exam <Joselin Hayessteffen (ED), [employer] - Last Filed: 02/22/25 22:04> General General appearance: alert Head Head exam: normocephalic Eye Eye exam: Present PERRL and EOMI ENT ENT exam: Present normal oropharynx and mucous membranes moist Neck Neck exam: Present full ROM and trachea midline Respiratory Respiratory exam: Present normal lung sounds bilaterally Cardiovascular Cardiovascular exam: Present normal rhythm, tachycardia, normal heart sounds, +S1 and +S2 Abdominal Exam Abdominal exam: Present soft and normal bowel sounds Extremities Exam Extremities exam: Present normal inspection, full ROM, normal capillary refill and edema Back Exam Back exam: Present normal inspection Neurological Exam Neurological exam: Present alert, oriented X3 and normal gait Skin Skin exam: Present warm, dry and intact Medical Decision Making <Joselin Kilsteffen (ED), [employer] - Last Filed: 02/22/25 22:04> Medical Records Screening: Per USPSTF and CDC recommendations, given the prevalence of disease in our region, it is our hospital?s policy to screen for HIV and viral Hepatitis for all patients aged 18 and over and those with ongoing risk factors. Bart Inquiry Pt receiving controlled substance: No Bart was queried for this patient: No Vital Signs: 02/22/25 17:47 Temperature 98.0 F Temperature Source Temporal Artery Scan Pulse Rate [Left Radial] 125 H Respiratory Rate 18 Blood Pressure [Left Arm] 133/89 Blood Pressure Mean [Left Arm] 103 Blood Pressure Source [Left Arm] Automatic Cuff Blood Pressure Position [Left Arm] Sitting 02 Sat by Pulse Oximetry 100 Oxygen Delivery Method Room Air Lab Data Lab Results 02/22/25 17:46: SARS-CoV-2 (PCR) Not detected, Influenza A Untype (PCR) Not detected, Influenza Type B (PCR) Not detected 02/22/25 18:00: WBC 5.5 D, RBC 3.61 L, Hgb 10.4 L, Hct 31.9 L, MCV 88.4, MCH 28.8, MCHC 32.6, RDW 13.4, Plt Count 139 L, MPV 10.5 H, Neut % (Auto) 83.3 H, Lymph % (Auto) 10.3, Mora % (Auto) 4.5, Eos % (Auto) 0.4, Baso % (Auto) 0.2, Neut # (Auto) 4.6, Lymph # (Auto) 0.6 L, Mora # (Auto) 0.3, Eos # (Auto) 0.0, Baso # (Auto) 0.0, D-Dimer 1.05 H, Sodium 136, Potassium 3.7, Chloride 106, Carbon Dioxide 23, Anion Gap 10.7, BUN 4 L, Creatinine 0.70, Estimated Creat Clear 221, Estimated GFR 96, Est GFR ( Amer) 117, Glucose 93, Calcium 9.1, Magnesium 1.4 L, Total Bilirubin 0.4, AST 78 H, ALT 74, Alkaline Phosphatase 75, Total Protein 6.6, Albumin 3.8, Globulin 2.8, Albumin/Globulin Ratio 1.4, Lipase 52 02/22/25 18:02: Urine Color Yellow, Urine Appearance Clear, Urine pH 7.0, Ur Specific [place] 1.010, Urine Protein Negative, Urine Glucose (UA) Negative, Urine Ketones Negative, Urine Blood 3+ A, Urine Nitrate Negative, Urine Bilirubin Negative, Urine Urobilinogen 0.2, Ur Leukocyte Esterase 1+ A, Urine RBC 5-10, Urine WBC 5-10, Ur Squamous Epith Cells 3-5, Urine Bacteria None 02/22/25 18:00 02/22/25 18:00 Orders (Tests/Meds): ED MEDICATIONS Generic Name Dose Route Start Last Admin Trade Name Freq PRN Reason Stop Dose Admin Ceftriaxone Sodium 2 gm/ 100 mls @ 200 mls/hr 02/22/25 22:00 02/22/25 23:24 Sodium Chloride IV 03/04/25 21:59 Infused Q24H MICHEAL Infusion Sodium Chloride 10 ml 02/22/25 22:23 02/22/25 22:25 Sodium Chloride 0.9% 10ml Syr (Rad Only) IV 03/24/25 22:22 10 ml NEEDED PRN Administration Maintain IV Site Discontinued Medications Generic Name Dose Route Start Last Admin Trade Name Freq PRN Reason Stop Dose Admin Acetaminophen 1,000 mg 02/22/25 20:37 02/22/25 20:44 Acetaminophen 1,000mg/100ml Vial IV 02/22/25 20:38 1,000 mg ONCE ONE Administration Magnesium Sulfate 2 gm in 50 mls @ 50 mls/hr 02/22/25 20:52 02/22/25 22:25 Magnesium Sulfate 2gm/50ml Premix IV 02/22/25 21:51 Infused ONCE ONE Infusion Iopamidol 160 ml 02/22/25 22:23 02/22/25 22:25 Iopamidol-370 (76%);100ml Bottle IV 02/22/25 22:24 160 ml ONCE ONE Administration Sodium Chloride 80 ml 02/22/25 22:23 02/22/25 22:24 0.9 % Sodium Chloride 50 Ml Vial IV 02/22/25 22:24 80 ml ONCE ONE Administration ORDERS Category Date Time Status CTA Chest [CT angio chest PE protocol] Stat Cat Scan 02/22/25 21:52 Completed Complete Blood Count Auto Diff Stat Lab 02/22/25 18:00 Completed Comprehensive Metabolic Panel Stat Lab 02/22/25 18:00 Completed D-Dimer Stat Lab 02/22/25 18:00 Completed Lipase Stat Lab 02/22/25 18:00 Completed Magnesium Stat Lab 02/22/25 18:00 Completed Rapid PCR Covid and Flu A/B Stat Lab 02/22/25 17:46 Completed Urinalysis and Microscopic Stat Lab 02/22/25 18:02 Completed Medical Decision Narrative: Ipatient is a 34-year-old female presenting to the emergency department for evaluation of left low back pain, achy legs and some tachycardia. Patient is hemodynamically stable and nontoxic-appearing upon arrival, afebrile. Differential diagnosis includes Pyelo, sepsis, UTI, among others. Workup will be conducted with hematologic labs, specific imaging. Initial inventions include crystalloid bolus, analgesics, antibiotics. Initial workup reviewed by me [hematologic labs are remarkable for:]. [Imaging informally interpreted by me and remarkable for:] [Formal imaging read remarkable for:] Upon repeat evaluation [patient's pain is improved, appears better perfused, appears the same, appears worse, etc.]. Due to this [additional interventions, patient is appropriate for discharge, patient requires admission, etc.]. <Imer Mooney MD - Last Filed: 02/22/25 23:21> Vital Signs: 02/22/25 17:47 Temperature 98.0 F Temperature Source Temporal Artery Scan Pulse Rate [Left Radial] 125 H Respiratory Rate 18 Blood Pressure [Left Arm] 133/89 Blood Pressure Mean [Left Arm] 103 Blood Pressure Source [Left Arm] Automatic Cuff Blood Pressure Position [Left Arm] Sitting 02 Sat by Pulse Oximetry 100 Oxygen Delivery Method Room Air Lab Data Lab results reviewed: Yes I reviewed the patient's lab results. Lab Results 02/22/25 17:46: SARS-CoV-2 (PCR) Not detected, Influenza A Untype (PCR) Not detected, Influenza Type B (PCR) Not detected 02/22/25 18:00: WBC 5.5 D, RBC 3.61 L, Hgb 10.4 L, Hct 31.9 L, MCV 88.4, MCH 28.8, MCHC 32.6, RDW 13.4, Plt Count 139 L, MPV 10.5 H, Neut % (Auto) 83.3 H, Lymph % (Auto) 10.3, Mora % (Auto) 4.5, Eos % (Auto) 0.4, Baso % (Auto) 0.2, Neut # (Auto) 4.6, Lymph # (Auto) 0.6 L, Mora # (Auto) 0.3, Eos # (Auto) 0.0, Baso # (Auto) 0.0, D-Dimer 1.05 H, Sodium 136, Potassium 3.7, Chloride 106, Carbon Dioxide 23, Anion Gap 10.7, BUN 4 L, Creatinine 0.70, Estimated Creat Clear 221, Estimated GFR 96, Est GFR ( Amer) 117, Glucose 93, Calcium 9.1, Magnesium 1.4 L, Total Bilirubin 0.4, AST 78 H, ALT 74, Alkaline Phosphatase 75, Total Protein 6.6, Albumin 3.8, Globulin 2.8, Albumin/Globulin Ratio 1.4, Lipase 52 02/22/25 18:02: Urine Color Yellow, Urine Appearance Clear, Urine pH 7.0, Ur Specific [place] 1.010, Urine Protein Negative, Urine Glucose (UA) Negative, Urine Ketones Negative, Urine Blood 3+ A, Urine Nitrate Negative, Urine Bilirubin Negative, Urine Urobilinogen 0.2, Ur Leukocyte Esterase 1+ A, Urine RBC 5-10, Urine WBC 5-10, Ur Squamous Epith Cells 3-5, Urine Bacteria None Orders (Tests/Meds): ED MEDICATIONS Generic Name Dose Route Start Last Admin Trade Name Freq PRN Reason Stop Dose Admin Ceftriaxone Sodium 2 gm/ 100 mls @ 200 mls/hr 02/22/25 22:00 02/22/25 23:24 Sodium Chloride IV 03/04/25 21:59 Infused Q24H MICHEAL Infusion Sodium Chloride 10 ml 02/22/25 22:23 02/22/25 22:25 Sodium Chloride 0.9% 10ml Syr (Rad Only) IV 03/24/25 22:22 10 ml NEEDED PRN Administration Maintain IV Site Discontinued Medications Generic Name Dose Route Start Last Admin Trade Name Cliffq PRN Reason Stop Dose Admin Acetaminophen 1,000 mg 02/22/25 20:37 02/22/25 20:44 Acetaminophen 1,000mg/100ml Vial IV 02/22/25 20:38 1,000 mg ONCE ONE Administration Magnesium Sulfate 2 gm in 50 mls @ 50 mls/hr 02/22/25 20:52 02/22/25 22:25 Magnesium Sulfate 2gm/50ml Premix IV 02/22/25 21:51 Infused ONCE ONE Infusion Iopamidol 160 ml 02/22/25 22:23 02/22/25 22:25 Iopamidol-370 (76%);100ml Bottle IV 02/22/25 22:24 160 ml ONCE ONE Administration Sodium Chloride 80 ml 02/22/25 22:23 02/22/25 22:24 0.9 % Sodium Chloride 50 Ml Vial IV 02/22/25 22:24 80 ml ONCE ONE Administration ORDERS Category Date Time Status CTA Chest [CT angio chest PE protocol] Stat Cat Scan 02/22/25 21:52 Completed Complete Blood Count Auto Diff Stat Lab 02/22/25 18:00 Completed Comprehensive Metabolic Panel Stat Lab 02/22/25 18:00 Completed D-Dimer Stat Lab 02/22/25 18:00 Completed Lipase Stat Lab 02/22/25 18:00 Completed Magnesium Stat Lab 02/22/25 18:00 Completed Rapid PCR Covid and Flu A/B Stat Lab 02/22/25 17:46 Completed Urinalysis and Microscopic Stat Lab 02/22/25 18:02 Completed Medical Decision Narrative: Ipatient is a 34-year-old female presenting to the emergency department for evaluation of left low back pain, achy legs and some tachycardia. Patient is hemodynamically stable and nontoxic-appearing upon arrival, afebrile. Differential diagnosis includes Pyelo, sepsis, UTI, among others. Workup will be conducted with hematologic labs, specific imaging. Initial inventions include crystalloid bolus, analgesics, antibiotics. Initial workup reviewed by me [hematologic labs are remarkable for:]. [Imaging informally interpreted by me and remarkable for:] [Formal imaging read remarkable for:] Upon repeat evaluation [patient's pain is improved, appears better perfused, appears the same, appears worse, etc.]. Due to this [additional interventions, patient is appropriate for discharge, patient requires admission, etc.]. This is Dr. Mooney at 11:20 PM patient's vital signs improved after IV fluids and analgesics. Labs unremarkable aside from mildly elevated D-dimer given the persistent tachycardia patient had a CT PE which is pending. I personally interpreted this I did not see any obvious pulmonary embolism. However contrast bolus timing was not optimal. Urinalysis did show some blood in the urine and leukocyte esterase she does have some flank tenderness we will treat her for pyelonephritis cefdinir has been sent to her pharmacy. CT scan read pending and care transitioned to Dr. Whaley 11 PM. <Jamarcus Whaley MD - Last Filed: 02/23/25 00:23> Vital Signs: 02/22/25 17:47 Temperature 98.0 F Temperature Source Temporal Artery Scan Pulse Rate [Left Radial] 125 H Respiratory Rate 18 Blood Pressure [Left Arm] 133/89 Blood Pressure Mean [Left Arm] 103 Blood Pressure Source [Left Arm] Automatic Cuff Blood Pressure Position [Left Arm] Sitting 02 Sat by Pulse Oximetry 100 Oxygen Delivery Method Room Air Lab Data Lab Results 02/22/25 17:46: SARS-CoV-2 (PCR) Not detected, Influenza A Untype (PCR) Not detected, Influenza Type B (PCR) Not detected 02/22/25 18:00: WBC 5.5 D, RBC 3.61 L, Hgb 10.4 L, Hct 31.9 L, MCV 88.4, MCH 28.8, MCHC 32.6, RDW 13.4, Plt Count 139 L, MPV 10.5 H, Neut % (Auto) 83.3 H, Lymph % (Auto) 10.3, Mora % (Auto) 4.5, Eos % (Auto) 0.4, Baso % (Auto) 0.2, Neut # (Auto) 4.6, Lymph # (Auto) 0.6 L, Mora # (Auto) 0.3, Eos # (Auto) 0.0, Baso # (Auto) 0.0, D-Dimer 1.05 H, Sodium 136, Potassium 3.7, Chloride 106, Carbon Dioxide 23, Anion Gap 10.7, BUN 4 L, Creatinine 0.70, Estimated Creat Clear 221, Estimated GFR 96, Est GFR ( Amer) 117, Glucose 93, Calcium 9.1, Magnesium 1.4 L, Total Bilirubin 0.4, AST 78 H, ALT 74, Alkaline Phosphatase 75, Total Protein 6.6, Albumin 3.8, Globulin 2.8, Albumin/Globulin Ratio 1.4, Lipase 52 02/22/25 18:02: Urine Color Yellow, Urine Appearance Clear, Urine pH 7.0, Ur Specific [place] 1.010, Urine Protein Negative, Urine Glucose (UA) Negative, Urine Ketones Negative, Urine Blood 3+ A, Urine Nitrate Negative, Urine Bilirubin Negative, Urine Urobilinogen 0.2, Ur Leukocyte Esterase 1+ A, Urine RBC 5-10, Urine WBC 5-10, Ur Squamous Epith Cells 3-5, Urine Bacteria None Orders (Tests/Meds): ED MEDICATIONS Generic Name Dose Route Start Last Admin Trade Name Freq PRN Reason Stop Dose Admin Ceftriaxone Sodium 2 gm/ 100 mls @ 200 mls/hr 02/22/25 22:00 02/22/25 23:24 Sodium Chloride IV 03/04/25 21:59 Infused Q24H MICHEAL Infusion Sodium Chloride 10 ml 02/22/25 22:23 02/22/25 22:25 Sodium Chloride 0.9% 10ml Syr (Rad Only) IV 03/24/25 22:22 10 ml NEEDED PRN Administration Maintain IV Site Discontinued Medications Generic Name Dose Route Start Last Admin Trade Name Freq PRN Reason Stop Dose Admin Acetaminophen 1,000 mg 02/22/25 20:37 02/22/25 20:44 Acetaminophen 1,000mg/100ml Vial IV 02/22/25 20:38 1,000 mg ONCE ONE Administration Magnesium Sulfate 2 gm in 50 mls @ 50 mls/hr 02/22/25 20:52 02/22/25 22:25 Magnesium Sulfate 2gm/50ml Premix IV 02/22/25 21:51 Infused ONCE ONE Infusion Iopamidol 160 ml 02/22/25 22:23 02/22/25 22:25 Iopamidol-370 (76%);100ml Bottle IV 02/22/25 22:24 160 ml ONCE ONE Administration Sodium Chloride 80 ml 02/22/25 22:23 02/22/25 22:24 0.9 % Sodium Chloride 50 Ml Vial IV 02/22/25 22:24 80 ml ONCE ONE Administration ORDERS Category Date Time Status CTA Chest [CT angio chest PE protocol] Stat Cat Scan 02/22/25 21:52 Completed Complete Blood Count Auto Diff Stat Lab 02/22/25 18:00 Completed Comprehensive Metabolic Panel Stat Lab 02/22/25 18:00 Completed D-Dimer Stat Lab 02/22/25 18:00 Completed Lipase Stat Lab 02/22/25 18:00 Completed Magnesium Stat Lab 02/22/25 18:00 Completed Rapid PCR Covid and Flu A/B Stat Lab 02/22/25 17:46 Completed Urinalysis and Microscopic Stat Lab 02/22/25 18:02 Completed Medical Decision Narrative: Ipatient is a 34-year-old female presenting to the emergency department for evaluation of left low back pain, achy legs and some tachycardia. Patient is hemodynamically stable and nontoxic-appearing upon arrival, afebrile. Differential diagnosis includes Pyelo, sepsis, UTI, among others. Workup will be conducted with hematologic labs, specific imaging. Initial inventions include crystalloid bolus, analgesics, antibiotics. Initial workup reviewed by me [hematologic labs are remarkable for:]. [Imaging informally interpreted by me and remarkable for:] [Formal imaging read remarkable for:] Upon repeat evaluation [patient's pain is improved, appears better perfused, appears the same, appears worse, etc.]. Due to this [additional interventions, patient is appropriate for discharge, patient requires admission, etc.]. This is Dr. Mooney at 11:20 PM patient's vital signs improved after IV fluids and analgesics. Labs unremarkable aside from mildly elevated D-dimer given the persistent tachycardia patient had a CT PE which is pending. I personally interpreted this I did not see any obvious pulmonary embolism. However contrast bolus timing was not optimal. Urinalysis did show some blood in the urine and leukocyte esterase she does have some flank tenderness we will treat her for pyelonephritis cefdinir has been sent to her pharmacy. CT scan read pending and care transitioned to Dr. Whaley 11 PM. Whaley: Upon my assumption of care patient is stable and resting comfortably. She states she feels significantly improved from previous. Vitals have improved since her time of arrival as well. CTA PE personally interpreted has very poor contrast timing and I do not appreciate PE though the study is very limited. There does appear to be slight hydronephrosis bilaterally. See radiology read for full interpretation which discusses this further. Radiology read agrees that this is not an optimal study and recommended possible nuclear medicine imaging. At this time I believe nuclear medicine imaging would be very low yield especially since patient has had significant improvement of her vitals, no chest pain, no pleuritic pain, no hypotension, saturating well on room air. I discussed this at length with her. I offered her the option of further workup which would likely involve admission versus being discharged with treatment for pyelonephritis. We also discussed the slight dilation of her kidneys and the possibility of having kidney stone though it is unlikely since she does not have colicky type pain. She states she knows what PE is and does not believe she has 1. She states she feels well and would like to go home. I believe this is very reasonable at this time. Patient has been prescribed cefdinir for outpatient management of suspected pyelonephritis. Patient was given instructions on symptomatic management, follow up instructions, and return precautions for the emergency department. Patient indicated understanding and was discharged in stable condition. Critical Care <Joselin Dean (ED), [employer] - Last Filed: 02/22/25 22:04> Critical Care Time Critical Care Time: No
[2025-02-22] MEDS: ACETAMINOPHEN 1,000MG/100ML VIAL 1000 MG IV (20:44)
[2025-02-22 20:46] LABS: Lipase 52 U/L (23-300); Magnesium 1.4 mg/dl (1.6-2.3)
[2025-02-22 20:51] LABS: D-Dimer 1.05 ug/mL (0.0-0.5)
[2025-02-22] MEDS: MAGNESIUM SULFATE IN WATER 2 GM/50 ML PIGGYBACK IV (21:06)
--- NOTE | 2025-02-22 21:52 | CT_ITS ---
PROCEDURE INFORMATION: Exam: CTA Chest With Contrast Exam date and time: 02/22/2025 9:57 PM Age: 34 years old Clinical indication: Abnormal findings; Abnormal diagnostic tests; Elevated d-dimer; Additional info: Elevated dimer TECHNIQUE: Imaging protocol: Computed tomographic angiography of the chest with contrast. Exam focused on the arteries. 3D rendering (Not supervised by radiologist): MIP and/or 3D reconstructed images were created by the technologist. Radiation optimization: All CT scans at this facility use at least one of these dose optimization techniques: automated exposure control; mA and/or kV adjustment per patient size (includes targeted exams where dose is matched to clinical indication); or iterative reconstruction. Contrast material: ISOUVE 370; Contrast volume: 80 ml; Contrast route: INTRAVENOUS (IV); COMPARISON: CR XR CHEST 2V 07/17/2021 9:52 AM FINDINGS: Pulmonary arteries: Essentially nondiagnostic study due to poor bolus and respiratory motion artifact without gross embolus in the main pulmonary artery. Aorta: No thoracic aortic aneurysm. Lungs: Probable atelectatic changes. Pleural spaces: No pneumothorax. No pleural effusion. Heart: No pericardial effusion. Lymph nodes: No lymphadenopathy by size criteria. Liver: Hepatic steatosis Kidneys: Prominent bilateral renal pelves Bones/joints: No acute fracture. Soft tissues: No discreet soft tissue mass. IMPRESSION: Essentially nondiagnostic study due to poor bolus and respiratory motion artifact without gross embolus in the main pulmonary artery. Recommend correlation with nuclear medicine lung.
[2025-02-22] MEDS: 0.9 % SODIUM CHLORIDE 50 ML VIAL 80 ML IV (22:24)
[2025-02-22] MEDS: IOPAMIDOL-370 (76%);100ML BOTTLE 160 ML IV (22:25)
[2025-02-22] MEDS: SODIUM CHLORIDE 0.9% 10ML SYR (RAD ONLY) 10 ML IV (22:25)
[2025-02-23 00:19] VITALS: BP 140/94; PULSE 95; O2SAT 98
[2025-02-23 00:31] VITALS: BP 104/94; PULSE 103; RESP 18; TEMP 36.7; O2SAT 98
== END 2025-02-23 00:33 | disposition home or self-care (01) ==
PROVIDERS: Nurse Practitioner; Emergency Provider Student in an Organized Health Care Education/Training Program; PCP Nurse Practitioner Family
DX: O86.21 Infection of kidney following delivery (principal); R00.0 Tachycardia, unspecified; M54.59 Other low back pain
CPT/HCPCS: 71275; 80053; 81001; 83690; 83735; 85025; 85378; 87636; 93005; 96365; 96366; 96367; 96375; 99284; J0131; J0696; J3475; Q9967

== ENCOUNTER 2025-04-11 10:15 | Outpatient (CLI) | payer MEDICAID, SELFPAY ==
--- OUTSIDE RECORDS SUMMARY | 2025-02-06 10:00 | XMS_ITS | Encounter Summary ---
Author Organization [facility] Address [address] [place] [address] Care Team Providers Care Trauma Coordinator Name Role Phone Provider, No Known Primary Care Provider Unavail able Reason for Visit * Reason Comments GDM with hypoglycemia Encounter Details Date Type Department Care Team (Late st Contact Info) Description 02/06/2025 10:00 AM EDT Office Visit [facility] MATERNAL MEDICINE [address] [phone] Jackie Greene MD 1700 [facility] [address] [place] [phone] Unspecified high-risk (Primary Dx); GDM, class A2 Social History Tobacco Use Types Packs/Day Years Used Date Smoking Tobacco: Never Smokeless Tobacco: Never Tobacco Cessation:Counseling Given: Not Answered Alcohol Use Standard Drinks/Week Comments Never 0 [...] Recorded Current Living Arrangements Not on file 10/1 06/2022 Potentially Unsafe Housing Conditions Not on maurizio [...] on file documented as of this encounter Last Filed Vital Signs Vital Sign Reading Time Taken Comments Blood Pressure - - Pulse - - Temperature - - Respiratory Rate - - Oxygen Saturation - - Inhaled Oxygen Concentration - - Weight 126 kg (278 lb 6.4 oz) 02/06/2025 10:23 A M EDT Height 174 cm (5' 8.5 ) 02/06/2025 10:25 AM EDT Body Mass Index 41.71 02/06/2025 10:23 AM EDT documented in this encounter Progress Notes * Jackie Greene MD - 02/12/2025 2:28 PM EDTAssociated Problem(s): GDM, class A2 Patient with late diagnosis of gestational diabetes Glucoses reviewed Appears to have mostly elevated fastings Started on Lantus 10q q Met with Diabetes Coordinator today for insulin teaching. A Dexcom G7 was placed. We will follow glucoses weekly Recommend continued twice weekly testing Delivery at 37 - 37'6 weeks GA is appropriate * Jackie Greene MD - 02/06/2025 10:00 AM EDTAddended by: JACKIE GREENE on: 02/12/2025 02:29 PM Modules accepted: Level of Service * Daina Bennett RN - 02/06/2025 10:00 AM EDT Patient denies any leaking of fluid or vaginal bleeding. She reports occasional adria robison contractions. NIPT low risk. Patient reports next follow-up appointment with Dr. Hernandez's office is 02/12. * Jackie Greene MD - 02/06/2025 10:00 AM EDT Patient seen in [facility] today for ultrasound. Please see ultrasound report under imaging tab of patient chart in [facility] (Viewpoint report). Jackie Greene MD * Jackie Greene MD - 02/06/2025 10:00 AM EDT Images from the original note were not included. Maternal/ Medicine New Patient Note Name: Bernadette Soto : 1990 Referring Provider: Shanel Hernandez DO Chief Complaint GDM with hypoglycemia Subjective History of Present Illness: Bernadette Soto is a 34 y.o. 35w4d who presents today for evaluation in the setting of A1DM AD: Estimated Date of Delivery: 03/15/25 ROS: As noted in HPI. Past Medical History: Diagnosis Date Asthma sports induced Chronic hypertension Gestational diabetes mellitus (GDM) Past Surgical History: Procedure Laterality Date OTHER SURGICAL HISTORY Right 2019 arm surgery OB History 5 Para 3 Term 2 1 AB 1 Living 3 SAB 0 IAB 1 Ectopic 0 Molar 0 Multiple 0 Live Births 3 Obstetric Comments FOB 1: 1 FOB 2: 2 FOB 3: 3 FOB 4: 4 and 5 Current Outpatient Medications: Continuous Glucose Sensor (Dexcom G6 Sensor), , Disp: , Rfl: Continuous Glucose Transmitter (Dexcom G6 Transmitter) [facility], , Disp: , Rfl: fluticasone (FLONASE) 50 MCG/ACT nasal spray, As Needed., Disp: , Rfl: Vit-Fe Fumarate-FA ( vitamin 27-0.8) 27-0.8 MG tablet tablet, Take 1 tablet by mouth Daily., Disp: , Rfl: Continuous Glucose Sensor (Dexcom G7 Sensor) [facility], Use 1 each Every 10 (Ten) Days., Disp: 3 each, Rfl: 11 Insulin Glargine (LANTUS SOLOSTAR) 100 UNIT/ML injection pen, Inject 10 Units under the skin into the appropriate area as directed Every Night., Disp: 15 mL, Rfl: 1 Insulin Pen Needle (Pen [place]) 31G X 5 MM [facility], Use 1 each 4 (Four) Times a Day., Disp: 100 each,Rfl: 2 Objective Vital Signs Ht 174 cm (68.5 ) Wt 126 kg (278 lb 6.4 oz) Estimated body mass index is 41.71 kg/m?? as calculated from the following: Height as of this encounter: 174 cm (68.5 ). Weight as of this encounter: 126 kg (278 lb 6.4 oz). Ultrasound Impression: See viewpoint Assessment and Plan Diagnoses and all orders for this visit: 1. Unspecified high-risk (Primary) 2. GDM, class A2 Assessment & Plan: Patient with late diagnosis of gestational diabetes Glucoses reviewed Appears to have mostly elevated fastings Started on Lantus 10q qHS Met with Diabetes Coordinator today for insulin teaching. A Dexcom G7 was placed. We will follow glucoses weekly Recommend continued twice weekly testing Delivery at 37 - 37'6 weeks GA is appropriate Follow Up No follow-ups on file. I spent 30 minutes caring for the patient on the day of service. This included: obtaining or reviewing a separately obtained medical history, reviewing patient records, performing a medically appropriate exam and/or evaluation, counseling or educating the patient/family/caregiver, ordering medications, labs, and/or procedures and documenting such in the medical record. This does not include time spent on review and interpretation of other tests such as ultrasound or the performance of other procedures such as amniocentesis or CVS. Jackie Greene MD FACOG Maternal Medicine, [facility] 02/06/2025 documented in this encounter Plan of Treatment Not on file documented as of this encounter Visit Diagnoses Diagnosis Unspecified high-risk - Primary GDM, class A2 Abnormal maternal glucose tolerance, complicating , childbirth, or the puerperium, unspecified as to episode of care documented in this encounter Care Teams Trauma Coordinator Relationship Specialty Start Date End Date Provider, [place] [address] PCP - General 03/09/16 documented as of this encounter
[2025-04-11 13:58] LABS: Coronavirus 19, PCR Not Detected (NotDetected); Influenza A, PCR Not Detected (NotDetected); Influenza B, PCR Not Detected (NotDetected)
--- OUTSIDE RECORDS SUMMARY | 2025-04-12 10:59 | XMS_ITS | Encounter Summary ---
Author Organization [facility] Address [address] [place] [address] Care Team Providers Care Semiconductor Bonder Name Role Phone Provider, No Known Primary Care Provider Unavail able Encounter Details Date Type Department Care Team (Late st Contact Info) Description 03/05/2025 Documentation [facility] [place] MATERNAL MEDICINE [address] [facility] [address] [place] [address] Anabell Tejada RN Social History [...] Progress Notes * Anabell Tejada RN - 03/05/2025 8:58 AM EDT Attempted to reach patient again by phone. Message left requesting update from patient regarding ifshe had delivered and if not was she still checking her blood sugar. Called Dr. Bertrand office and was informed patient had delivered first week in February. Anabell Tejada RN documented in this encounter Plan of Treatment Not on file documented as of this encounter Visit Diagnoses Not on filedocumented in this encounter Care Teams Semiconductor Bonder Relationship Specialty Start Date End Date Provider, No Known [facility] [place] [address] PCP - General 03/09/16 documented as of this encounter
--- OUTSIDE RECORDS SUMMARY | 2025-04-12 10:59 | XMS_ITS | Encounter Summary ---
Author Organization [facility] Address [address] [place] [address] Care Team Providers Care Fuel Buyer Name Role Phone Provider, No Known Primary Care Provider Unavail able Reason for Visit * Reason Onset Date Comments Advice Only 02/25/2025 Encounter Details Date Type Department Care Team (Late st Contact Info) Description 02/25/2025 Telephone [facility] MATERNAL MEDICINE [address] [facility] [address] [place] [address] Anabell Tejada senior reservoir engineer Only Social History Tobacco Use Types Packs/Day Years [...] on file documented as of this encounter Miscellaneous Notes * Telephone Encounter - Anabell Tejada RN - 02/25/2025 10:44 AM EDT Attempted to reach patient by phone. Left message requesting patient update us on her status. We have not heard from her in several weeks. We do not have any Dexcom data on her since January. Requested she either call the office at [phone] or send a [employer] message so we know if she is still , has delivered, still taking insulin etc. Anabell Tejada RN documented in this encounter Plan of Treatment Not on file documented as of this encounter Visit Diagnoses Not on filedocumented in this encounter Care Teams Fuel Buyer Relationship Specialty Start Date End Date Provider, [place] [address] PCP - General 03/09/16 documented as of this encounter
--- OUTSIDE RECORDS SUMMARY | 2025-04-12 10:59 | XMS_ITS | Clinical Summary ---
Author Organization [facility] Address [address] [place] [address] Care Team Providers Care Manager Quality Systems Name Role Phone Provider, No Known Primary [...] 1 5 Active Insulin Pen Needle (Pen [place]) 31G X 5 MM misc Use 1 [...] Encounters Date Type Department Care Team Description 03/05/2025 Documentation [facility] MATERNAL MEDICINE [address] [facility] [address] [place] [phone] Anabell Tejada RN 02/25/2025 Telephone [facility] MATERNAL MEDICINE [address] [facility] [address] [place] [phone] Anabell Tejada anode crew supervisor Only 02/06/2025 10:00 AM EDT Office Visit [facility] MATERNAL MEDICINE [address] [facility] [address] [place] [phone] Jackie Fair MD Unspecified high-risk (Primary Dx); GDM, class A2 02/06/2025 9:48 AM EDT - 02/06/2025 11:59 PM EDT Hospital Encounter [facility] [address] [place] [phone] Vern Hernandez, Gestational diabetes mellitus (GDM) in third trimester controlled on oral hypoglycemic drug; , unspecified gestational age Discharge Disposition: Home or Self Care 02/06/2025 Documentation [facility] MATERNAL MEDICINE [address] [facility] [address] [place] [address] Anabell Tejada RN 02/06/2025 Medication Therapy Management [facility] MATERNAL MEDICINE [address] [facility] [address] [place] [address] Jackie Fair MD 02/06/2025 Travel from Last [...] d Breast Exam 1990 PAP SMEAR 2012 INFLUENZA VACCINE 01/18/2025 04/17/2012, 04/11/2007 ANNUAL PHYSICAL 01/30/2025 HEPATITIS C SCREENING 01/30/2025 TDAP/TD VACCINES (2 - Td or Tdap) 05/15/2030 05/15/2020 Pneumococcal Vaccine 0-49 Aged Out No longer eligible based on patient's age to complete this topic RSV Vaccine - Adults (No Doses Required) Completed Procedures Procedure Name Priority Date/Time Associated Diagnosis Comments [facility] Routine 02/06/2025 11:47 AM EDT Gestational diabetes mellitus (GDM) in third trimester controlled on oral hypoglycemic drug , unspecified gestational age from Last 3 Months Results * [facility] (02/06/2025 11:47 AM EDT) Anatomical Region Laterality Modality Ultrasound 02/06/2025 11:0 2 AM EDT Narrative 02/11/2025 10:06 AM EDT PAT NAME: BERNADETTE ÁLVAREZ [facility] REC#: [id number] DA: [id number] PAT GEND: F PAT TYPE: O EXAM DARRYL: [id number] REF PHYS VERN HERNANDEZ Comparison Studies There [...] EFW (oz) 9 oz EFW by: Hadlock ([id number]) Extended Cav. septi pel. tr 5.7 mm Air Quality Chemist 6.6 mm Head / Face / Neck [...] normal IVC: normal 3-vessel view: Appears normal 0-xooqea-kzsiyck view: Appears normal Rt lung: Appears normal [...] 8/8 UA doppler normal Coding ======= Description: 71840-72 Detailed Ultrasound Description: 74636-83 BPP without NST Electric Range Servicer: Hoda Coats RDMS Physician: Jackie Fair MD, FACOG Electronically signed by: Jackie Fair MD, FACOG at: 10:06 Procedure Note Jackie Fair MD - 02/11/2025 PAT NAME: BERNADETTE ÁLVAREZ [facility] REC#: [id number] DA: 1990 PAT GEND: F PAT TYPE: O EXAM DARRYL: [id number] REF PHYS VERN HERNANDEZ Comparison Studies There are no relevant prior studies to which this study is beingcompared Patient Status Outpatient Indication ======== GDM, CHTN, hx PTL, obesity Maternal Assessment Rzrdvs208 cm Height (ft)5 ft Height (in)9 in Jydfrt334 kg Weight (lb)278 lb BMI41.65 kg/m Method ======= Transabdominal ultrasound examination ========= Meyers . Number of fetuses: 1 Dating ====== Method of dating:based on stated AD GA by prior [id number] w + 5 d AD by prior assessment:03/15/2025 Ultrasound examination on:02/06/2025 GA by U/S based upon:AC, BPD, Femur, HC GA by U/S36 w + 4 d AD by U/S:03/02/2025 Assigned:based on stated AD, selected on 02/06/2025 Assigned GA34 w + 5 d Assigned AD:03/15/2025 ssybub867 d Biometry Standard BPD93.7 mm 38w 1d >99% Hadlock MVB347.6 mm -/- >99% Shonda HC334.6 mm 38w 2d 93% Hadlock AC340.6 mm 38w 0d >99% Hadlock Femur61.7 mm 32w 0d 2% Hadlock Mnsmeoq12.0 mm 32w 4d 13% Shonda HC / AC0.98 EFW2,985 g 36w 6d 91% Hadlock EFW (lb)6 lb EFW (oz)9 oz EFW by:Hadlock ([id number]) Extended Cav. septi pel. tr5.7 mm Vp6.6 mm Head / Face / Neck Cephalic index0.80 46% Nicolaides Extremities / Bony Struc FL / BPD0.66 FL / HC0.18 FL / AC0.18 Other Structures ZXD044 bpm General Evaluation Cardiac activity present. FHR [...] arch view:suboptimal SVC:normal IVC:normal 3-vessel view:Appears normal 8-rgwzhz-bgdkmvd view:Appears normal Rt lung:Appears normal Lt lung:normal [...] Normal appearing limited anatomy Normal fluid BPP 88 UA doppler normal Coding ======= Description:45516-44 Detailed Ultrasound Description:13575-23 BPP without NST Electric Range Servicer: Hoda Coats RDMS Physician: Jackie Fair MD, FACOG Electronically signed by: Jackie Fair MD, FACOG at: 0:06 us Vern Hernandez DO IMG US ORDERABLES Final Res ult from Last 3 Months Insurance [employer] MEDICAID [place] INSURANCE Care Teams Manager Quality Systems Relationship Specialty Start Date End Date Provider, No Known [facility] [place] [address] PCP - General 03/09/16
--- OUTSIDE RECORDS SUMMARY | 2025-04-12 10:59 | XMS_ITS | Clinical Summary ---
Author Organization Healthcare Address [address] [place] [address] Care Team Providers Care Traffic Officer Name Role Phone Vladimir Baumann DO Primary [...] 3 - 19+ 3-dose series) 02/29/2024 02/01/2024 [id number] Vaccine (2 - 2024- season) 2025 05/11/2021 [...] age to complete this topic Insurance H[employer] MEDICAID Care Teams Traffic Officer Relationship Specialty Start Date End Date Vladimir Baumann DO [address] [place] [address] PCP - General 10/31/20
== END 2025-04-11 23:59 ==
LOC: LAB.DROPOF 04-12 10:49
PROVIDERS: PCP Nurse Practitioner Family; Visit Provider Nurse Practitioner Family
DX: B34.9 Viral infection, unspecified (principal)
CPT/HCPCS: 87631